=== PATIENT | female | born 1940 | race Caucasian/White ===

== ENCOUNTER → 2019-05-28 14:36 | Outpatient (CLI) | payer MEDICARE, SELFPAY ==
--- NOTE | 2019-05-28 | DI.US.S_ITS ---
PROCEDURE: US PERIPH VENOUS LOW EXTREM RT INDICATIONS: LOCALIZED SWELLING, MASS, AND LUMP RIGHT LOWER LIMB TECHNIQUE: Real-time imaging, as well as color and pulse Doppler interrogation, were performed of the lower extremity deep veins from the inguinal ligament to the popliteal fossa. COMPARISON: None. FINDINGS: Acute chronic venous thrombosis involving the right superficial femoral vein distally through the upper calf trifurcation. Common femoral, proximal and middle superficial femoral veins are patent. IMPRESSION: 1. Acute on chronic deep venous thrombosis involving the right distal superficial femoral vein through the trifurcation. Tristin De León PAC given results by the solutions engineer at 1543 hrs. on 05/28/19 and the patient was sent to the emergency department. Dictated by: Tristin Zuniga [facility] Interpreted: Enriuqe Flynn MD on 05/28/2019 at 16:03 Approved by: Enrique Flynn M.D. on 05/28/2019 at 16:46
== END ==
PROVIDERS: Family Provider Nurse Practitioner Gerontology; PCP Family Medicine; Visit Provider Physician Assistant
DX: I82.411 Acute embolism and thrombosis of right femoral vein (principal); R22.41 Localized swelling, mass and lump, right lower limb
CPT/HCPCS: 93971

== ENCOUNTER 2019-05-28 15:42 | Observation (INO) | payer MEDICARE, SELFPAY ==
[2019-05-28] VITALS (7 sets, daily range): BP systolic 149–170; BP diastolic 52–82; PULSE 87–94; RESP 14–20; TEMP 36.5–37; O2SAT 92–99; BMI 31.6
--- NOTE | 2019-05-28 15:59 | DI.CT.S_ITS ---
PROCEDURE: CT ANGIO CHEST PE PROTOCOL INDICATIONS: sob with known +DVT TECHNIQUE: After the administration of intravenous contrast, 2 mm thick sections acquired from the pulmonary apices to the posterior costophrenic angles. 3-dimensional maximum intensity projection (MIP) coronal and sagittal reformats were then acquired through the thorax. For radiation dose reduction, the following was used: automated exposure control, adjustment of mA and/or kV according to patient size. COMPARISON: None. FINDINGS: Image quality: Excellent. Pulmonary arteries: Pulmonary arteries are normal in size. Large saddle embolus sitting in distal main pulmonary artery extending to bilateral main pulmonary arteries and bilateral upper lobe pulmonary artery branches, consistent with bilateral pulmonary light. Lungs and pleura: Dependent atelectasis and hazy groundglass opacities are seen scattered in the posterior aspect of the lateral lung huber. No focal infiltrate. No pleural effusions or pneumothorax. Central and peripheral airways are patent. Mediastinum: Heart size is normal, without pericardial effusion. No mediastinal or hilar adenopathy. Thoracic aorta is normal in caliber and enhancement. Esophagus is normal in caliber, with a small hiatal hernia. Bones and chest wall: No suspicious bony lesions. Ribs and thoracic spine appear intact throughout. Thyroid gland is within normal limits. No axillary or supraclavicular adenopathy. Abdomen: Visualized upper abdominal solid organs appear normal in the early arterial phase of enhancement. IMPRESSION: 1. Subtle embolus involving distal main pulmonary trunk extending to bilateral main pulmonary arteries and bilateral upper lobe pulmonary artery branches. 2. No thoracic aortic aneurysm or dissection. 3. Dependent atelectasis in bilateral lung huber. Hazy ground glass opacities in bilateral lung huber dependent portion likely represent mild pulmonary edema. No pleural effusion or pneumothorax. 4. No gross mediastinal or hilar lymphadenopathy. Small hiatal hernia. Dictated by: Enrique Flynn M.D. on 05/28/2019 at 17:06 Approved by: Enrique Flynn M.D. on 05/28/2019 at 17:21
[2019-05-28 16:28] LABS: Add Manual Diff / Slide Review NO; Basophils Absolute Auto 0 /uL (0-100); Basophils Percent Auto 0.1 % (0-2); Eosinophils Absolute Auto 200 /uL (0-450); Eosinophils Percent Auto 2.5 % (2-4); Hematocrit 33.8 % (36-46); Hemoglobin 11.4 g/dL (12.0-16.0); Lymphocytes Absolute Auto 1800 /uL (1100-4500); Lymphocytes Percent Auto 21.5 % (25-40); Mean Corpuscular HGB Conc 33.6 % (30-36); Mean Corpuscular Hemoglobin 30.4 PG (26-34); Mean Corpuscular Volume 90.4 fL (80-100); Monocytes Absolute Auto 800 /uL (0-900); Monocytes Percent Auto 9.3 % (3-14); Neutrophils Absolute Auto 5700 /uL (1500-7000); Neutrophils Percent Auto 66.6 % (50-75); Platelet Count 178 X10^3/uL (150-400); Red Blood Cell Count 3.74 X10^6/uL (4.0-5.2); Red Cell Distribution Width 12.8 % (11.6-14.8); White Blood Cell Count 8.5 X10^3/uL (4.5-11.0)
[2019-05-28 16:38] LABS: Prothrombin Time 11.4 SECONDS (10.1-12.7)
[2019-05-28 16:40] LABS: PTT Partial Thromboplastin Tim 29 SECONDS (26.4-36.2)
[2019-05-28 16:43] LABS: Creatine Kinase 62 U/L (30-135); Magnesium 1.9 mg/dL (1.6-2.3)
[2019-05-28 16:44] LABS: Alanine Aminotransferase 12 IU/L (<35); Albumin 3.9 g/dL (3.5-5.0); Albumin Globulin Ratio 1.1 (1.0-2.8); Alkaline Phosphatase 84 U/L (38-126); Aspartate Aminotransferase 26 IU/L (14-36); BUN Creatinine Ratio 17.7 (6-22); Bilirubin Total 0.4 mg/dL (0.2-1.3); Blood Urea Nitrogen 23 mg/dL (7-17); Calcium 9.2 mg/dL (8.4-10.2); Carbon Dioxide 29 mmol/L (22-32); Chloride 102 mmol/L (98-107); Estimated Glomerular Filt Rate 39.6 mL/min (>60); Globulin 3.4 g/dL (1.7-4.1); Glucose 99 mg/dL (80-110); HEMOLYSIS < 15 (0-50); Potassium 4.2 mmol/L (3.4-5.1); Sodium 137 mmol/L (137-145); Total Protein 7.3 g/dL (6.3-8.2)
[2019-05-28 16:55] LABS: Troponin I 0.057 ng/mL (0.01-0.034)
--- NOTE | 2019-05-28 16:57 | ED_ITS ---
HPI - Extremity Problem General Chief complaint: Extremity Problem,Nontraumatic Stated complaint: possible blood clot Time Seen by Provider: 05/28/19 15:58 Source: patient Mode of arrival: Wheelchair Limitations: no limitations History of Present Illness HPI Narrative: Patient is a 78-year-old female who presents, is right leg swelling and increasing shortness of breath. She states that of her right leg has actually been swollen since about Thanksgiving. She attributed this to multiple changes in her blood pressure medication. She says initially she was on medication is to stop her legs from swelling in that it was switched by different provider and she was put back on it. She has had no recent travel [place] and over the past few weeks she has noticed just swelling in her right leg along increasing shortness of breath with exertion and some mild chest discomfort. She was evaluated today clinic for increasing pain behind the knee. She had positive ultrasound at this hospital which did show acute on chronic DVT is. She was sent to the ER for fur ther evaluation of her shortness of breath and known DVT. MD Complaint: extremity swelling Pain Consistency: constant Related Data Allergies Allergy/AdvReac Type Severity Reaction Status Date / Time No Known Drug Allergies Allergy Verified 05/28/19 15:51 Review of Systems Review of Systems Narrative: GENERAL: Denies chills, fatigue, malaise, fever, sweats, travel HEENT: Denies sinus pain, ear pain, sore throat, difficulty swallowing, neck pain RESPIRATORY: See HPI CARDIOVASCULAR: Denies chest pain, palpitations, orthopnea, edema GASTROINTESTINAL: Denies nausea, vomiting, abdominal pain, diarrhea, constipation, melena. : Denies dysuria, frequency, incontinence, hematuria, urinary retention, flank pain. MUSCULOSKELETAL: See HPI SKIN: No rash, no erythema, no pruritus NEUROLOGIC: Denies weakness, dizziness, headache, numbness, change in speech, confusion PSYCHIATRIC: No concerning psychosocial issues. 12 point review of systems is negative except for those stated above and HPI Patient History Medical History Hypertension (Acute) Social History Smoking Status: Former smoker Smoking Status: Former smoker alcohol intake frequency: holidays/special occasions only Substance Use Type: does not use Exam Initial Vital Signs Initial Vital Signs: Vital Signs Temperature 98.6 F 05/28/19 15:45 Pulse Rate 94 H 05/28/19 15:45 Respiratory Rate 15 05/28/19 15:45 Blood Pressure 159/70 H 05/28/19 15:45 Pulse Oximetry 94 05/28/19 15:45 GENERAL: Alert overweight female no acute distress HEENT: Head atraumatic,EOMI, pupils reactive, face symmetric CARDIOVASCULAR: Regular rate and rhythm without murmurs, rubs or gallops. RESPIRATORY: Breath sounds equal bilaterally, no wheezes rales or rhonchi. ABDOMEN: Soft, nontender. Normoactive bowel sounds all 4 quadrants. No guarding or rebound. EXTREMITIES: Normal range of motion, no clubbing or edema. Neurovascularly intact Significant swelling over right lower leg no gross bony abnormality no erythema NEUROLOGICAL: Alert and oriented x4.Normal gait and speech. Cranial nerves II through XII grossly intact. SKIN: Warm, dry, no laceration, no petechiae, no rashes or lesions. Course Orders Ordered: ED Orders 05/28/19 15:58 Consult to Respiratory Therapy Evaluate & Treat EKG-12 Lead Stat 05/28/19 15:59 CT angio chest PE protocol Stat 05/28/19 16:22 B Type Natriuretic Peptide Stat Complete Blood Count AUTO DIFF Stat Comprehensive Metabolic Panel Stat Magnesium Stat Partial Thromboplastin Time Stat Prothrombin Time INR Stat Troponin & CK Cardiac Panel Stat Discontinued Medications Enoxaparin Sodium (Lovenox) 90 mg 1 mg/kg (90 mg) SUBCUT NOW ONE Stop: 05/28/19 17:24 Last Admin: 05/28/19 17:28 Dose: 90 mg Documented by: OMID Vital Signs Vital signs: Vital Signs - 8 hr 05/28/19 15:45 05/28/19 16:00 05/28/19 17:35 Temperature 98.6 F Pulse Rate 94 H 89 91 H Respiratory Rate 15 18 20 Blood Pressure 159/70 H Blood Pressure [Right Arm] 149/61 H 156/82 H Pulse Oximetry 94 98 94 MDM - Extremity (Nontraumatic) Lab Data Attestation: I reviewed the patient's lab results. Result diagrams: 05/28/19 16:22 05/28/19 16:22 Labs: Lab Results 05/28/19 05/28/19 05/28/19 Range/Units 16:22 16:22 16:22 WBC 8.5 (4.5-11.0) X10^3/uL RBC 3.74 L (4.0-5.2) X10^6/uL Hgb 11.4 L (12.0-16.0) g/dL Hct 33.8 L (36-46) % MCV 90.4 (80-100) fL MCH 30.4 (26-34) PG MCHC 33.6 (30-36) % RDW 12.8 (11.6-14.8) % Plt Count 178 (150-400) X10^3/uL Neut % (Auto) 66.6 (50-75) % Lymph % (Auto) 21.5 L (25-40) % [place] % (Auto) 9.3 (3-14) % Eos % (Auto) 2.5 (2-4) % Baso % (Auto) 0.1 (0-2) % Neut # (Auto) 5700 (9408-5865) /uL Lymph # (Auto) 1800 (4670-1870) /uL [place] # (Auto) 800 (0-900) /uL Eos # (Auto) 200 (0-450) /uL Baso # (Auto) 0 (0-100) /uL PT 11.4 (10.1-12.7) SECONDS INR 1.0 (0.9-1.3) APTT 29 (26.4-36.2) SECONDS Sodium (137-145) mmol/L Potassium (3.4-5.1) mmol/L Chloride (98-107) mmol/L Carbon Dioxide (22-32) mmol/L BUN (7-17) mg/dL Creatinine (0.52-1.04) mg/dL Estimated GFR (>60) mL/min BUN/Creatinine Ratio (6-22) Glucose (80-110) mg/dL Calcium (8.4-10.2) mg/dL Magnesium 1.9 (1.6-2.3) mg/dL Total Bilirubin (0.2-1.3) mg/dL AST (14-36) IU/L ALT (<35) IU/L Alkaline Phosphatase (38-126) U/L Total Creatine Kinase 62 (30-135) U/L CK-MB (CK-2) TNP CK-MB (CK-2) Rel Index TNP Troponin I 0.057 H (0.01-0.034) ng/mL B-Natriuretic Peptide < 100 (<100) Total Protein (6.3-8.2) g/dL Albumin (3.5-5.0) g/dL Globulin (1.7-4.1) g/dL Albumin/Globulin Ratio (1.0-2.8) // Range/Units 16:22 WBC (4.5-11.0) X10^3/uL RBC (4.0-5.2) X10^6/uL Hgb (12.0-16.0) g/dL Hct (36-46) % MCV (80-100) fL MCH (26-34) PG MCHC (30-36) % RDW (11.6-14.8) % Plt Count (150-400) X10^3/uL Neut % (Auto) (50-75) % Lymph % (Auto) (25-40) % [place] % (Auto) (3-14) % Eos % (Auto) (2-4) % Baso % (Auto) (0-2) % Neut # (Auto) (5956-8970) /uL Lymph # (Auto) (9170-0495) /uL [place] # (Auto) (0-900) /uL Eos # (Auto) (0-450) /uL Baso # (Auto) (0-100) /uL PT (10.1-12.7) SECONDS INR (0.9-1.3) APTT (26.4-36.2) SECONDS Sodium 137 (137-145) mmol/L Potassium 4.2 (3.4-5.1) mmol/L Chloride 102 (98-107) mmol/L Carbon Dioxide 29 (22-32) mmol/L BUN 23 H (7-17) mg/dL Creatinine 1.30 H (0.52-1.04) mg/dL Estimated GFR 39.6 L (>60) mL/min BUN/Creatinine Ratio 17.7 (6-22) Glucose 99 (80-110) mg/dL Calcium 9.2 (8.4-10.2) mg/dL Magnesium (1.6-2.3) mg/dL Total Bilirubin 0.4 (0.2-1.3) mg/dL AST 26 (14-36) IU/L ALT 12 (<35) IU/L Alkaline Phosphatase 84 (38-126) U/L Total Creatine Kinase (30-135) U/L CK-MB (CK-2) CK-MB (CK-2) Rel Index Troponin I (0.01-0.034) ng/mL B-Natriuretic Peptide (<100) Total Protein 7.3 (6.3-8.2) g/dL Albumin 3.9 (3.5-5.0) g/dL Globulin 3.4 (1.7-4.1) g/dL Albumin/Globulin Ratio 1.1 (1.0-2.8) Imaging Data CT scan - chest: Radiologist's impression: PROCEDURE: CT ANGIO CHEST PE PROTOCOL INDICATIONS: sob with known +DVT TECHNIQUE: After the administration of intravenous contrast, 2 mm thick sections acquired from the pulmonary apices to the posterior costophrenic angles. 3-dimensional maximum intensity projection (MIP) coronal and sagittal reformats were then acquired through the thorax. For radiation dose reduction, the following was used: automated exposure control, adjustment of mA and/or kV according to patient size. COMPARISON: None. FINDINGS: Image quality: Excellent. Pulmonary arteries: Pulmonary arteries are normal in size. Large saddle embolus sitting in distal main pulmonary artery extending to bilateral main pulmonary arteries and bilateral upper lobe pulmonary artery branches, consistent with bilateral pulmonary light. Lungs and pleura: Dependent atelectasis and hazy groundglass opacities are seen scattered in the posterior aspect of the lateral lung huber. No focal infiltrate. No pleural effusions or pneumothorax. Central and peripheral airways are patent. Mediastinum: Heart size is normal, without pericardial effusion. No mediastinal or hilar adenopathy. Thoracic aorta is normal in caliber and enhancement. Esophagus is normal in caliber, with a small hiatal hernia. Bones and chest wall: No suspicious bony lesions. Ribs and thoracic spine appear intact throughout. Thyroid gland is within normal limits. No axillary or supraclavicular adenopathy. Abdomen: Visualized upper abdominal solid organs appear normal in the early arterial phase of enhancement. IMPRESSION: 1. Subtle embolus involving distal main pulmonary trunk extending to bilateral main pulmonary arteries and bilateral upper lobe pulmonary artery branches. 2. No thoracic aortic aneurysm or dissection. 3. Dependent atelectasis in bilateral lung huber. Hazy ground glass opacities in bilateral lung huber dependent portion likely represent mild pulmonary edema. No pleural effusion or pneumothorax. 4. No gross mediastinal or hilar lymphadenopathy. Small hiatal hernia. Dictated by: Enrique Flynn M.D. on 05/28/2019 at 17:06 ECG Data Attestation EKG: I personally reviewed and interpreted this ECG as follows: Prior ECG tracings: not available for review Interpretation: Normal sinus rhythm rate 88 p.r. interval 198 QRS 85 QTC 380 for Q-wave noted lead 3 no S-wave in lead 1 or T-wave inversion no ST elevation depression or T-wave inversions for ischemia MDM Narrative Medical decision making narrative: Patient is found to have bilateral PEs with an indeterminate troponin. Her vitals have been stable oxygen also stable. Difficult to say how long pulmonary embolism has been present, however based upon indeterminate troponin and worsening symptoms of will keep patient in observation and started on anticoagulation. Dr. Joseph updated patient's symptoms test results request Lovenox and except for observation Discharge Plan Departure Patient Disposition: Admitted as Observation Clinical Impression: Pulmonary embolism Qualifiers: Pulmonary embolism type: multiple subsegmental (without acute cor pulmonale) Qualified Code(s): I26.94 - Multiple subsegmental pulmonary emboli without acute cor pulmonale Discharge Date/Time: 05/28/19 18:54 Admit Date/Time: 05/28/19 17:41 Admit Provider: Román Joseph
[2019-05-28 17:02] LABS: B Type Natriuretic Peptide < 100 (<100)
[2019-05-28] MEDS: ENOXAPARIN 100 MG/ML SYRINGE 90 MG SUBCUT (17:28)
--- NOTE | 2019-05-28 19:41 | PC.NURSE ---
Pt arrived on unit at 190 with her daughter. Patient hypertensive at 167/66 and states she has had issues with metoprolol, lisinopril and lasix. She also stated that she stopped taking her 81 mg of ASA as her MD in [place] said it's efficacy in treating blood clots is now unclear. She states she has a family history of strokes. She states she feels pressure and moderate pain behind her right knee. Her right ankle is approx 2x larger than her left. Her knee is very warm to the touch. She does not want any pain medication. She is not hungry or thirsty.
--- NOTE | 2019-05-28 20:35 | DI.ECHO.S_ITS ---
[facility] +---------+ [facility] +---------+ : : [address] : : : : [id number] : : : : Phone: [phone]+ Echocardiogram Report + + :Name: CONCETTA JIMÉNEZ Study Date: 05/29/2019 Height: 67 in : :[facility] Weight: 202 lb : : Gender: Female BSA: 2.0 m2 : :: 1940 Age: 78 yrs BP: 177/79 mmHg: :Reason For Study: BILATERAL PE : : Performed By: [facility] Staff : :Referring: MADI WINSTON : + + Interpretation Summary The right ventricular systolic pressure is estimated to be at least 23 mmHg based on an estimated right atrial pressure of 3 mm Hg. Left ventricular wall motion is normal. The left ventricle is normal in size. The mitral valve leaflets appear mildly thickened, but open well. There is moderate aortic stenosis. There is mild to moderate aortic regurgitation. There is no prior echocardiogram noted for this patient. Procedure: A two-dimensional transthoracic echocardiogram with color flow and Doppler was performed. The study quality was technically adequate. There is no prior echocardiogram noted for this patient. The patient was in normal sinus rhythm during the exam. Left Ventricle: The left ventricle is normal in size. Left ventricular wall thickness is mildly increased. The ejection fraction is estimated to be 60- 65%. The left ventricular ejection fraction is normal. Left ventricular wall motion is normal. Diastolic parameters suggest a relaxation abnormality of the left ventricle, consistent with probable normal filling pressures. Right Ventricle: The right ventricle is normal in size and function. TAPSE 2.2 cm. Atria: The left atrium is moderately dilated. Right atrial size is normal. There is no Doppler evidence for an interatrial shunt. Mitral Valve: The mitral valve leaflets appear mildly thickened, but open well. There is trace mitral regurgitation. Aortic Valve: The aortic valve is trileaflet. The aortic valve is moderately calcified. There is moderate aortic stenosis. The calculated aortic valve area is 1.4 cm2. The peak aortic velocity is 2.6 m/sec. The aortic valve mean gradient is 16 mmHg. There is mild to moderate aortic regurgitation. Tricuspid Valve: The tricuspid valve is normal in structure and function. There is trace tricuspid regurgitation. The right ventricular systolic pressure is estimated to be at least 23 mmHg based on an estimated right atrial pressure of 3 mm Hg. Pulmonic Valve: The pulmonic valve is not well visualized. There is trace pulmonic regurgitation. Great Vessels: The aortic root is normal size. The ascending aorta could not be visualized. The pulmonary artery is normal size. The IVC is of normal diameter and collapses greater than 50% with a sniff. This suggests a low right atrial pressure of 3 mm Hg. Pericardium/ Pleura There is no pericardial effusion. There is no pleural effusion. MMode/2D Measurements & Calculations LVIDd: 3.8 cm LVOT diam: 1.9 cm LVIDs: 2.5 cm Ao root diam: 3.1 cm FS: 34.2 % EPSS: 0.51 cm IVSd: 1.1 cm LVPWd: 0.99 cm LV medina. diameter/BSA (cm/m^2): 1.9 LV sys. diameter/BSA (cm/m^2): 1.2 LA A2 area: 22.8 cm2 RA long axis: 5.4 cm LA A4 area: 23.6 cm2 RA area: 13.6 cm2 LA length (vol): 5.6 cm RA vol: 29.2 ml LA vol: 81.3 ml RA : 14.4 ml/m2 LA vol index: 40.1 ml/m2 TAPSE: 2.2 cm Doppler Measurements & Calculations Ao V2 max: 262.7 cm/sec LVOT Max Valente: 125.5 cm/sec Ao V2 mean: 184.6 cm/sec LV V1 max P.3 mmHg Ao max P.6 mmHg LV V1 VTI: 28.7 cm Ao mean P.5 mmHg MINH(I,D): 1.4 cm2 Ao V2 VTI: 56.7 cm MINH(V,D): 1.3 cm2 sev ratio: 0.51 MINH indexed to BSA (cm^2/m^2): 0.69 AI P1/2t: 315.2 msec AI dec slope: 454.1 cm/sec2 MV E max valente: 79.9 cm/sec TR max valente: 222.9 cm/sec MV A max valente: 113.4 cm/sec TR max P.9 mmHg MV E/A: 0.70 PA V2 max: 106.7 cm/sec Med Peak E' Valente: 6.1 cm/sec PA V2 mean: 75.4 cm/sec E/E' med: 13.1 PA mean P.6 mmHg Lat Peak E' Valente: 7.1 cm/sec PA Accel Time: 0.11 sec E/E' lat: 11.2 E/e' average: 12.2 MV dec time: 0.22 sec SV(OT): 79.7 ml Electronically signed by: Fabián Royal M.D. on Reading Physician:05/29/2019 03:51 PM
--- NOTE | 2019-05-28 20:39 | P.HP_ITS ---
History of Present Illness History of Present Illness Date Patient Seen: 05/28/19 Time Patient Seen: 19:50 Chief complaint: possible blood clot Narrative: Ms. Yuki Wright is a 78-year-old female with history significant for hypertension and hyperlipidemia who presents to the ER sent in prior primary care provider for a known DVT. The patient presents complaining of right leg swelling since Thanksgiving for which she had been taking Lasix and developed pain posterior to the knee prompting her to be evaluated today. Her provider did order an ultrasound which demonstrated a DVT and sent her to the ER. Patient has a history of shortness of breath for 1-2 years that she states has been progressive became marked recently. She reports shortness of breath with exertion and cannot ascend a flight of stairs without having to stop to rest. Patient distantly notes that she had been taking 2 baby aspirin daily up until 4-6 months ago and was concerned this provoked her DVT. She reports no recent travel, injury or in mobility stating that she is normally active. She has had no other complaints of illness and has had no fevers or chills, heada ches or dizziness. She has had no nasal congestion or sore throat. She has no chest pain and denies palpitations but is shortness of breath as above and notes a dry nonproductive cough. She denies abdominal pain, nausea vomiting and has no constipation or diarrhea. She denies urinary symptoms. She is ambulatory without assistive devices. Upon arrival to the ER the patient is afebrile with a temperature 97.7?, heart rate 91, blood pressure 156/82 with respirations of 20 saturating 94% on room air. The venous duplex identifies an acute on chronic DVT in the right distal superficial femoral vein through the trifurcation. A CTA is obtained finding: subtle embolus involving distal main pulmonary trunk extending to bilateral main pulmonary arteries and bilateral upper lobe pulmonary artery branches, hazy ground glass opacities in bilateral lung huber dependent portion likely represent mild pulmonary edema, small hiatal hernia. Laboratory analysis finds a white count of 8.5, hemoglobin of 11.4 hematocrit 33.8 platelets 178. Blood coag she has a PT of 11.4, INR 1.0 and PTT of 29. Her electrolytes are within normal limits and has a BUN of 23 with a creatinine of 1.3. Her nonfasting glucose is 99. Her liver functions within normal limits and has a magnesium of 1.9. Her troponin is 0.057 with a BNP of less than 100. In the ER the patient started on Lovenox 1 milligram/kilogram receiving 90 mg of Lovenox subcutaneously. The patient is admitted to the medicine service for DVT with bilateral pulmonary emboli. Patient History Medical History Frozen shoulder (Acute) Hyperlipidemia (Acute) Hypertension (Acute) Surgical History No history of previous surgery (Acute) Family & Social History Family History (Updated 05/29/19 @ 02:24 by ANTONELLA Holcomb) Father Stroke Mother Medical history unknown Brother Sudden Safety & Behavioral: Feels Safe in Current Yes Environment Been Physically Hurt or No Threatened By a Person Tobacco & Substance use: Smoking Status Former smoker alcohol intake frequency holiday/special occasion Substance Use Type does not use Comment: The patient lives alone in a single family home and has been for 2 years. She has 2 sons who live nearby. She reports her father from stroke and her mother when she was only 2 months old and does not know her medical history. She has 2 brothers and 1 sister, 1 brother from sudden . Smoking: Patient smoked 1/2 to 1 pack per day quitting in 1999. Alcohol: Patient denies consuming alcoholic beverages. Substance use: The patient denies recreational pharmaceuticals herbal or cannabis products. Advanced directives: Patient has formal advanced directives and states desire to be FULL CODE. She designates her Cameron Wright to be her surrogate decision maker. Meds Home Medications and Allergies Home Medications Medication Instructions Recorded Confirmed Type amlodipine 2.5 mg PO DAILY 05/29/19 05/29/19 History furosemide 20 mg PO DAILY 05/29/19 05/29/19 History metoprolol succinate 25 mg PO DAILY 05/29/19 05/29/19 History simvastatin 10 mg PO DAILY 05/29/19 05/29/19 History Allergies Allergy/AdvReac Type Severity Reaction Status Date / Time No Known Drug Allergies Allergy Verified 05/28/19 15:51 Review of Systems Review of Systems Narrative: All systems are refused and unremarkable except as noted in HPI above. Exam Vital Signs (past 8 hours): - 05/28/19 15:45 05/28/19 16:00 05/28/19 17:35 Temperature 98.6 F Pulse Rate 94 H 89 91 H Respiratory Rate 15 18 20 Blood Pressure 159/70 H Blood Pressure [Right Arm] 149/61 H 156/82 H Pulse Oximetry 94 98 94 05/28/19 18:17 05/28/19 18:50 05/28/19 19:00 Temperature 97.7 F Pulse Rate 87 89 90 Respiratory Rate 14 18 16 Blood Pressure 154/60 H 167/66 H Blood Pressure [Right Arm] 170/52 H Pulse Oximetry 94 99 93 Oxygen Delivery Method Room Air Narrative Exam Narrative: GENERAL APPEARANCE: well developed, obese female, in no acute distress. HEENT: Normocephalic, PERRLA, conjunctiva clear, EOMs intact without nystagmus, no sinus tenderness to percussion, no rhinorrhea, mucous membranes are moist and pink without lesions or exudate. NECK/THYROID: neck supple, no JVD, no carotid bruit, no thyromegaly, trachea midline. LYMPH NODES: no cervical or supraclavicular lymphadenopathy. SKIN: [place], warm and dry, no suspicious lesions, no rashes, ulcerations or petechiae. HEART: regular rate and rhythm, S1-S2, 2/6 systolic murmur, no rubs or gallops, brisk capillary refill, right lower extremity pitting edema to the knee. LUNGS: clear to auscultation bilaterally, no coarseness crackles or wheezing, dry nonproductive cough present CHEST: Symmetrical movement, no accessory muscle use, no kyphoscoliosis ABDOMEN: Soft, no distention, no abdominal tenderness, no organomegaly, no flank tenderness, active bowel tones. BACK: Normal curvature, nontender to palpation, no CVA tenderness on percussion EXTREMITIES: Right popliteal pain on palpation, right calf pain, positive Homans sign, moves all extremities, strength is 5/5 and symmetrical NEUROLOGIC: AAO x4, no focal neurologic deficits, sensation intact to light touch in all extremities, hearing grossly normal to speech. PSYCH: Good judgment, good insight, linear thought process, cooperative, appropriate with stable behavior Objective Labs Result Diagrams: 05/28/19 16:22 05/28/19 16:22 Labs: Laboratory Results - last 24 hr 05/28/19 05/28/19 05/28/19 16:22 16:22 16:22 WBC 8.5 RBC 3.74 L Hgb 11.4 L Hct 33.8 L MCV 90.4 MCH 30.4 MCHC 33.6 RDW 12.8 Plt Count 178 Neut % (Auto) 66.6 Lymph % (Auto) 21.5 L [place] % (Auto) 9.3 Eos % (Auto) 2.5 Baso % (Auto) 0.1 Neut # (Auto) 5700 Lymph # (Auto) 1800 [place] # (Auto) 800 Eos # (Auto) 200 Baso # (Auto) 0 PT 11.4 INR 1.0 APTT 29 Sodium Potassium Chloride Carbon Dioxide BUN Creatinine Estimated GFR BUN/Creatinine Ratio Glucose Calcium Magnesium 1.9 Total Bilirubin AST ALT Alkaline Phosphatase Total Creatine Kinase 62 CK-MB (CK-2) TNP CK-MB (CK-2) Rel Index TNP Troponin I 0.057 H B-Natriuretic Peptide < 100 Total Protein Albumin Globulin Albumin/Globulin Ratio 05/28/19 16:22 WBC RBC Hgb Hct MCV MCH MCHC RDW Plt Count Neut % (Auto) Lymph % (Auto) [place] % (Auto) Eos % (Auto) Baso % (Auto) Neut # (Auto) Lymph # (Auto) [place] # (Auto) Eos # (Auto) Baso # (Auto) PT INR APTT Sodium 137 Potassium 4.2 Chloride 102 Carbon Dioxide 29 BUN 23 H Creatinine 1.30 H Estimated GFR 39.6 L BUN/Creatinine Ratio 17.7 Glucose 99 Calcium 9.2 Magnesium Total Bilirubin 0.4 AST 26 ALT 12 Alkaline Phosphatase 84 Total Creatine Kinase CK-MB (CK-2) CK-MB (CK-2) Rel Index Troponin I B-Natriuretic Peptide Total Protein 7.3 Albumin 3.9 Globulin 3.4 Albumin/Globulin Ratio 1.1 Assessment & Plan Assessment & Plan narrative: This 70-year-old female patient who is directed to the emergency department by her primary care following a ultrasound demonstrating a DVT with shortness of breath. Patient felt leg pain swelling treated with Lasix progressing to popliteal pain prompting evaluation and ultrasound identification a DVT in the superficial femoral vein. Patient's shortness breath is longstanding for 1-2 years but has progressive recently and reports exertional dyspnea. She has had an associated dry nonproductive cough but denies chest pain or palpitations. 1. Pulmonary embolism, multi segmental, bilateral without cor pulmonale, present on admission, active. -subtle embolus involving distal main pulmonary trunk extending to bilateral main pulmonary arteries and bilateral upper lobe pulmonary artery branches. -no evidence of heart strain noted on CT, 12 lead EKG finds sinus rhythm with v entricular rate of [address] or T-wave changes. -no complaints of chest pain or palpitations, adequate oxygenation on room air. -patient started on Lovenox 1 milligram/kilogram, 90 mg subcutaneously twice daily. Will evaluate for apixaban in the morning. -troponin is elevated at 0.057 will recheck troponin. -Echocardiogram in the morning 2. Shortness breath, chronic, present on admission, active. -CT evaluation identifies patchy infiltrates consistent with mild pulmonary edema. -will continue the patient's home regimen of Lasix 20 mg daily -will monitor electrolytes 3. Essential hypertension, chronic, present on admission, active -blood pressure on admission was 156/82, the patient remains hypertensive 167 over 67 upon arrival to the floor. -will continue home regimen of amlodipine 2.5 mg daily and metoprolol 25 mg daily. -will trend blood pressures and evaluate need for escalation of antihypertensive therapy. 4. Hyperlipidemia, chronic, presumed stable. -will continue home regimen of simvastatin 10 mg daily. DVT prophylaxis: SCDs and therapeutic Lovenox. Diet: Heart healthy. The patient is admitted to the hospital due to the severity of her symptoms and the risk for complications and adverse events. The patient is admitted as observation status with expected length stay to be less than 2 midnights. Scores GCS [place] coma scale eye opening: Spontaneous [place] coma scale verbal response: Orientated Randa coma scale motor response: Obey commands Randa coma scale total score: 15
[2019-05-28 22:25] LABS: Troponin I 0.055 ng/mL (0.01-0.034)
[2019-05-28] MEDS: SODIUM CHLORIDE 0.9% 1,000 ML 75 ML IV (22:26)
[2019-05-29] VITALS (10 sets, daily range): BP systolic 139–172; BP diastolic 67–98; PULSE 86–95; RESP 16–18; TEMP 36.5–37.8; O2SAT 92–97
[2019-05-29] MEDS: PANTOPRAZOLE 20 MG TABLET PO (05:44)
[2019-05-29] MEDS: ENOXAPARIN 100 MG/ML SYRINGE 90 MG SUBCUT ×2 (05:44→16:22)
[2019-05-29 06:17] LABS: Basophils Absolute Auto 100 /uL (0-100); Eosinophils Absolute Auto 300 /uL (0-450); Eosinophils Percent Auto 3.9 % (2-4); Lymphocytes Absolute Auto 1700 /uL (1100-4500); Mean Corpuscular HGB Conc 34.6 % (30-36); Monocytes Absolute Auto 700 /uL (0-900); Neutrophils Absolute Auto 4500 /uL (1500-7000); White Blood Cell Count 7.3 X10^3/uL (4.5-11.0)
[2019-05-29 06:22] LABS: Add Manual Diff / Slide Review NO; Basophils Percent Auto 1.2 % (0-2); Hematocrit 31.8 % (36-46); Mean Corpuscular Hemoglobin 30.8 PG (26-34); Mean Corpuscular Volume 89.1 fL (80-100); Monocytes Percent Auto 10.1 % (3-14); Neutrophils Percent Auto 61.8 % (50-75); Platelet Count 163 X10^3/uL (150-400); Red Blood Cell Count 3.57 X10^6/uL (4.0-5.2); Red Cell Distribution Width 12.8 % (11.6-14.8)
[2019-05-29 06:29] LABS: Blood Urea Nitrogen 18 mg/dL (7-17); Calcium 8.6 mg/dL (8.4-10.2); Carbon Dioxide 26 mmol/L (22-32); Chloride 105 mmol/L (98-107); Estimated Glomerular Filt Rate 53.6 mL/min (>60); Glucose 93 mg/dL (80-110); HEMOLYSIS < 15 (0-50); Magnesium 1.8 mg/dL (1.6-2.3); Sodium 138 mmol/L (137-145)
[2019-05-29 06:40] LABS: Troponin I 0.041 ng/mL (0.01-0.034)
[2019-05-29] MEDS: FUROSEMIDE 20 MG TABLET PO (08:39)
[2019-05-29] MEDS: SODIUM CHLORIDE 0.9% FLUSH 10 ML IV ×2 (08:39→20:26)
[2019-05-29] MEDS: ACETAMINOPHEN 325 MG TABLET 650 MG PO (08:45)
[2019-05-29] MEDS: AMLODIPINE 2.5 MG TABLET PO (08:45)
--- NOTE | 2019-05-29 11:23 | PM.PN.1 ---
Subjective Subjective Date Patient Seen: 05/29/19 Interval history: The patient is a 78-year-old female admitted to the hospital with a saddle pulmonary embolus she also has a right lower extremity DVT. The patient denies any shortness of breath or chest pain today. She has minimal swelling in her right lower extremity. Patient also has hypertension and hyperlipidemia. Her blood pressure is suboptimally controlled. The patient had uneventful night. She has no further complaints. Exam Vital Signs (past 8 hours): - 05/29/19 05:08 05/29/19 07:45 05/29/19 08:45 Temperature 99.6 F 100.1 F H 100.1 F H Pulse Rate 92 H 88 Respiratory Rate 16 16 Blood Pressure 158/67 H 147/79 H Pulse Oximetry 92 94 Oxygen Delivery Method Room Air Oxygen Flow Rate 0 Narrative Exam Narrative: Pleasant female in no obvious distress resting comfortably and not short of breath Lungs: Clear to auscultation Cardiac exam: Regular rate rhythm normal S1-S2 with a 2/6 systolic ejection murmur Abdomen: Soft nontender nondistended Extremities: Right lower extremity with 1+ edema Objective Labs Result Diagrams: 05/29/19 06:00 05/29/19 06:00 Labs: Laboratory Results - last 24 hr 05/28/19 05/28/19 05/28/19 16:22 16:22 16:22 WBC 8.5 RBC 3.74 L Hgb 11.4 L Hct 33.8 L MCV 90.4 MCH 30.4 MCHC 33.6 RDW 12.8 Plt Count 178 Neut % (Auto) 66.6 Lymph % (Auto) 21.5 L [place] % (Auto) 9.3 Eos % (Auto) 2.5 Baso % (Auto) 0.1 Neut # (Auto) 5700 Lymph # (Auto) 1800 [place] # (Auto) 800 Eos # (Auto) 200 Baso # (Auto) 0 PT 11.4 INR 1.0 APTT 29 Sodium Potassium Chloride Carbon Dioxide BUN Creatinine Estimated GFR BUN/Creatinine Ratio Glucose Calcium Magnesium 1.9 Total Bilirubin AST ALT Alkaline Phosphatase Total Creatine Kinase 62 CK-MB (CK-2) TNP CK-MB (CK-2) Rel Index TNP Troponin I 0.057 H B-Natriuretic Peptide < 100 Total Protein Albumin Globulin Albumin/Globulin Ratio 05/28/19 05/28/19 05/29/19 16:22 21:55 06:00 WBC 7.3 RBC 3.57 L Hgb 11.0 L Hct 31.8 L MCV 89.1 MCH 30.8 MCHC 34.6 RDW 12.8 Plt Count 163 Neut % (Auto) 61.8 Lymph % (Auto) 23.0 L [place] % (Auto) 10.1 Eos % (Auto) 3.9 Baso % (Auto) 1.2 Neut # (Auto) 4500 Lymph # (Auto) 1700 [place] # (Auto) 700 Eos # (Auto) 300 Baso # (Auto) 100 PT INR APTT Sodium 137 Potassium 4.2 Chloride 102 Carbon Dioxide 29 BUN 23 H Creatinine 1.30 H Estimated GFR 39.6 L BUN/Creatinine Ratio 17.7 Glucose 99 Calcium 9.2 Magnesium Total Bilirubin 0.4 AST 26 ALT 12 Alkaline Phosphatase 84 Total Creatine Kinase CK-MB (CK-2) CK-MB (CK-2) Rel Index Troponin I 0.055 H B-Natriuretic Peptide Total Protein 7.3 Albumin 3.9 Globulin 3.4 Albumin/Globulin Ratio 1.1 05/29/19 05/29/19 06:00 06:00 WBC RBC Hgb Hct MCV MCH MCHC RDW Plt Count Neut % (Auto) Lymph % (Auto) [place] % (Auto) Eos % (Auto) Baso % (Auto) Neut # (Auto) Lymph # (Auto) [place] # (Auto) Eos # (Auto) Baso # (Auto) PT INR APTT Sodium 138 Potassium 4.0 Chloride 105 Carbon Dioxide 26 BUN 18 H Creatinine 1.00 Estimated GFR 53.6 L BUN/Creatinine Ratio 18.0 Glucose 93 Calcium 8.6 Magnesium 1.8 Total Bilirubin AST ALT Alkaline Phosphatase Total Creatine Kinase CK-MB (CK-2) CK-MB (CK-2) Rel Index Troponin I 0.041 H B-Natriuretic Peptide Total Protein Albumin Globulin Albumin/Globulin Ratio Assessment & Plan Assessment & Plan narrative: Impression 1. 78-year-old female admitted to the hospital with a saddle embolus, right lower extremity DVT. The patient is hemodynamically stable. Echocardiogram is pending. There is no suggestion at this time a right ventricular heart strain. Patient is not hypoxic. She will continue on Lovenox b.i.d.. Anticipate initiation of Xarelto at discharge. Will observe the patient overnight given the significant pulmonary embolus. If she has no difficulties overnight anticipate discharge home tomorrow. Discussed the case with Interventional Radiology at [facility]. No indication for IVC filter at this time. However if the patient develops any hemodynamic compromise, shortness of breath, or evidence to suggest progression of the pulmonary embolus would consider IVC retractable filter. 2. Hypertension, suboptimally controlled. Will increase her metoprolol to 50 daily. Will continue amlodipine at 2.5 per day. Would hold Lasix at this time given the pulmonary embolus. 3. Hyperlipidemia, continue simvastatin, Plans for discharge home. Anticipate discharge home tomorrow.
--- NOTE | 2019-05-29 15:04 | CM.DANOTE ---
Addendum entered by Sherrie Russell LPN 05/29/19 15:17: Met with pt, introduced self and role. Pt says her PCP is Dr. Sawant but I have chosen another PCP and will have my first appt iwht Lora Moctezumaeugene June 28. Pt also confirms that she is . Her daughter Candy Ortiz/Lisa: [phone] lives right by the hospital. Pt says she is glad that Dr. Sorto is keeping her overnight. Plans to d/c to home setting but only when she is deemed safe to do so. Will follow prn. Original Note: Discharge Planning/Care Management DCP: assessment: case received, EMR reviewed. Discussed in Team Rounds and then later in followup with Dr. Sorto. Pt is a 78 year old female who admitted last evening to care of hospitalist team. Payer: Medicare and [employer]. Admission status: OBS: confirmed by AGUEDA Wolf PCP: listed as Nury Sawant: will confirm. Dr. Sorto initially planned to send pt home today after ECHO was completed for outpt treatment of her DVT and PE. She later noted that Saddle PE was identified, that this was a life threatening dx and she would keep pt here until tomorrow and then reassess the situation. CM Discharge Assessment Start: 05/29/19 15:03 Freq: Status: Active Protocol: Document 05/29/19 15:03 ITV (Rec: 05/29/19 15:04 ITV [id number]) Discharge Planning Assessment Advance Directives? No History Provided By Patient,Medical Record Prior Living Arrangements House Household Members none Independent with ADL's Yes Is patient alert and oriented? Yes Whiteboard Updated in Patient Room with Yes name and ext. 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
[2019-05-29] MEDS: ACETAMINOPHEN 325 MG TABLET 975 MG PO (20:26)
[2019-05-30 00:15] VITALS: BP 146/59; PULSE 89; RESP 16; TEMP 36.7; O2SAT 92
[2019-05-30 05:16] VITALS: BP 152/63; PULSE 94; RESP 16; TEMP 36.8; O2SAT 94
[2019-05-30] MEDS: PANTOPRAZOLE 20 MG TABLET PO (05:18)
[2019-05-30] MEDS: ENOXAPARIN 100 MG/ML SYRINGE 90 MG SUBCUT (05:19)
[2019-05-30 08:00] VITALS: BP 169/72; PULSE 89; RESP 18; TEMP 37.3; O2SAT 96
[2019-05-30] MEDS: AMLODIPINE 2.5 MG TABLET PO (08:11)
[2019-05-30] MEDS: SODIUM CHLORIDE 0.9% FLUSH 10 ML IV (08:11)
[2019-05-30] MEDS: METOPROLOL ER 50 MG TABLET PO (08:11)
[2019-05-30] MEDS: ACETAMINOPHEN 325 MG TABLET 975 MG PO (08:15)
--- NOTE | 2019-05-30 13:02 | CM.DPC ---
DCP: case discussed in Team Rounds with Dr. Sorto. She noted again the concerns related to the saddle block PE. Decision in Rounds was to have PT Dinora see pt and assess her ability to mobilize without shortness of breath. Dr. Sorto stated she would put in the orders. UR LISA Wolf and Dr. Sorto also discussed admission status. At time of Rounds the plan was for pt to likely stay on again overnight due to the gravity of the saddle block diagnosis. A check in now shows a d/c to home setting. Unclear what all transpired as no d/c summary is yet in place. Room is already cleaned. Checked in with PT Dinora who notes that an order was never placed so she had not worked with pt. DC orders note followup with PCP in about a week.
--- NOTE | 2019-05-30 17:13 | P.DS_ITS ---
History of Present Illness History of Present Illness Date Patient Seen: 05/30/19 Chief complaint: possible blood clot Narrative: Ms. Yuki Wright is a 78-year-old female with history significant for hypertension and hyperlipidemia who presents to the ER sent in prior primary care provider for a known DVT. The patient presents complaining of right leg swelling since Thanksgiving for which she had been taking Lasix and developed pain posterior to the knee prompting her to be evaluated today. Her provider did order an ultrasound which demonstrated a DVT and sent her to the ER. Patient has a history of shortness of breath for 1-2 years that she states has been progressive became marked recently. She reports shortness of breath with exertion and cannot ascend a flight of stairs without having to stop to rest. Patient distantly notes that she had been taking 2 baby aspirin daily up until 4-6 months ago and was concerned this provoked her DVT. She reports no recent travel, injury or in mobility stating that she is normally active. She has had no other complaints of illness and has had no fevers or chills, headaches or dizziness. She has had no nasal congestion or sore throat. She has no chest pain and denies palpitations but is shortness of breath as above and notes a dry nonproductive cough. She denies abdominal pain, nausea vomiting and has no constipation or diarrhea. She denies urinary symptoms. She is ambulatory without assistive devices. Upon arrival to the ER the patient is afebrile with a temperature 97.7?, heart rate 91, blood pressure 156/82 with respirations of 20 saturating 94% on room air. The venous duplex identifies an acute on chronic DVT in the right distal superficial femoral vein through the trifurcation. A CTA is obtained finding: subtle embolus involving distal main pulmonary trunk extending to bilateral main pulmonary arteries and bilateral upper lobe pulmonary artery branches, hazy ground glass opacities in bilateral lung huber dependent portion likely represent mild pulmonary edema, small hiatal hernia. Laboratory analysis finds a white count of 8.5, hemoglobin of 11.4 hematocrit 33.8 platelets 178. Blood coag she has a PT of 11.4, INR 1.0 and PTT of 29. Her electrolytes are within normal limits and has a BUN of 23 with a creatinine of 1.3. Her nonfasting glucose is 99. Her liver functions within normal limits and has a magnesium of 1.9. Her troponin is 0.057 with a BNP of less than 100. In the ER the patient started on Lovenox 1 milligram/kilogram receiving 90 mg of Lovenox subcutaneously. The patient is admitted to the medicine service for DVT with bilateral pulmonary emboli. Discharge Providers Provider Date of admission: 05/28/19 17:41 Discharge Date: 05/30/19 Primary care physician: Andres Sawant MD Consults: 05/28/19 20:28 Consult to Discharge Planning Routine Comment: 05/28/19 20:33 Consult to Discharge Planning Routine Comment: 05/28/19 20:35 Consult to Respiratory Therapy Evaluate & Treat Comment: PE Physician Instructions: Evaluate and treat Discharge provider: Krista Sorto MD Summary Hospital Course Discharge Diagnosis: 1. Pulmonary embolus, described as saddle emboli on CT angio 2. Right lower extremity DVT involving the superficial femoral vein 3. Hypertension with suboptimal control 4. Hyperlipidemia Hospital Course: Patient was admitted to the hospital for treatment and evaluation of pulmonary embolus/DVT. She was placed on Lovenox b.i.d. for treatment. She had no shortness of breath, she had no chest pain, the patient had swelling of the right lower extrem ity which improved with leg elevation. She underwent a cardiac echo to evaluate her right ventricular function and there was no evidence of right ventricular strain. The cardiac echo revealed the following findings: The right ventricular systolic pressure is estimated to be at least 23 mmHg based on an estimated right atrial pressure of 3 mm Hg. Left ventricular wall motion is normal. The left ventricle is normal in size. The mitral valve leaflets appear mildly thickened, but open well. There is moderate aortic stenosis. There is mild to moderate aortic regurgitation. At no time did the patient have any evidence of hemodynamic instability. Her oxygenation improved. She was hypertensive throughout the course of her hospital stay and her medications were adjusted. Her amlodipine was increased to 10 mg a day, her metoprolol was increased to 50 mg daily. Patient was started on Xarelto 15 mg twice daily for 21 days followed by Xarelto 20 mg daily thereafter. She was asked to follow-up with her primary care physician next we ek for further evaluation. Patient was deemed appropriate for discharge and discharged home accordingly. Status at Discharge Cognitive/behavioral status at discharge: oriented Functional status at discharge: independent ambulation Overall status at discharge: patient is back to baseline Time Spent with Patient Time spent: Less than 30 minutes Time spent discussing smoking cessation with patient: 3 to 10 minutes Exam Vital Signs (past 8 hours): Oxygen Delivery Method Room Air Oxygen Flow Rate 0 Narrative Exam Narrative: Pleasant female in no obvious distress Lungs: Clear to auscultation Cardiac exam: Regular rate and rhythm normal S1-S2 Abdomen: Soft nontender nondistended Extremities: 1+ edema on the right lower extremity Objective Labs Result Diagrams: 05/29/19 06:00 05/29/19 06:00 Discharge Plan Discharge Plan Patient Disposition: Home Discharge comment: Needs to take Xeralto 15 mg twice daily for 21 days, then 20 mg daily. F/u with PCP. Olman next week Discharge orders & Medications Prescriptions: New metoprolol succinate 50 mg Tablet Extended Release 24 Hr 50 mg PO DAILY Qty: 30 RF: 0 amlodipine 10 mg tablet 10 mg PO DAILY Qty: 30 RF: 0 Xarelto 20 mg tablet 15 mg PO BID 30 Days Qty: 30 RF: 0 Continued simvastatin 10 mg tablet 10 mg PO DAILY RF: 0 Discontinued amlodipine 2.5 mg tablet 2.5 mg PO DAILY RF: 0 furosemide 20 mg tablet 20 mg PO DAILY RF: 0 metoprolol succinate 25 mg tablet extended release 24 hr 25 mg PO DAILY RF: 0 Follow up/Referrals: Andres Sawant MD [Primary Care Provider] - Visit Report/Discharge Packet Instructions: DI for Deep Vein Thrombosis, DI for Pulmonary Embolism Visit Report Forms: Patient Portal/API, Stroke Signs & Symptoms Discharge Data Primary Care Provider: Andres Sawant Attending Provider: Román Joseph Admit Date/Time: 05/28/19 17:41 Discharges patient from system. Discharge Date/Time: 05/30/19 12:28
== END 2019-05-30 12:28 | disposition home or self-care (01) ==
LOC: ED 15:58 → AC 17:41
PROVIDERS: Nurse Practitioner Adult Health; Admitting Provider Internal Medicine; Emergency Provider Emergency Medicine; Family Provider Nurse Practitioner Gerontology; PCP Family Medicine; Visit Provider Internal Medicine
DX: I82.411 Acute embolism and thrombosis of right femoral vein (principal); R22.41 Localized swelling, mass and lump, right lower limb; I26.92 Saddle embolus of pulmonary artery without acute cor pulmonale; R06.02 Shortness of breath; I10 Essential (primary) hypertension; E78.5 Hyperlipidemia, unspecified
CPT/HCPCS: 36415; 71275; 80048; 80053; 82550; 83735; 83880; 84484; 85025; 85610; 85730; 93005; 93010; 93306; 93971; 94762; 96360; 96361; 96372; 99284; 99285; G0378; J1650

== ENCOUNTER 2019-10-06 14:03 | Emergency (ER) | payer MEDICARE, SELFPAY ==
[2019-05-28 20:42] VITALS: BMI 31.6
[2019-10-06] VITALS (7 sets, daily range): BP systolic 170–213; BP diastolic 72–88; PULSE 79–97; RESP 18–20; TEMP 37.2; O2SAT 94–96
--- NOTE | 2019-10-06 14:40 | ED.GENADULT ---
HPI - General Adult General Chief complaint: Hypertension Stated complaint: Blood Pressure High Time Seen by Provider: 10/06/19 14:09 Source: patient and family Mode of arrival: Ambulatory Limitations: no limitations History of Present Illness HPI narrative: Patient here for elevated blood pressure with dizziness. Patient denies denies any chest pain back pain abdominal pain. Does complain of mild diffuse headache at its worst 2/10 intermittently. Currently no headache. No slurred speech facial droop or any complaints of numbness tingling or weakness. No altered mental status. Patient states 2 nights ago felt lightheaded. No syncope. Or near syncope. No nausea vomiting diarrhea. No recent illness. No cough cold congestion. Patient is on Xarelto for history of pulmonary embolism May 2019. Has seen Cardiology as well as Hematology. Started to blood pressure medications back in May and has not had any changes to dosing. Has appointment with her family physician tomorrow. She takes her blood pressure medications at night. She has been doing a home adrenal of her blood pressure. It has been elevated. Ranging between 150-215 systolic Related Data Home Medications Medication Instructions Recorded Confirmed simvastatin 10 mg PO DAILY 05/29/19 05/29/19 losartan 10/06/19 Previous Rx's Medication Instructions Recorded amlodipine 10 mg PO DAILY #30 tab 05/30/19 metoprolol succinate 50 mg PO DAILY #30 tab 05/30/19 Allergies Allergy/AdvReac Type Severity Reaction Status Date / Time amlodipine Allergy Verified 10/06/19 14:24 Review of Systems Review of Systems Narrative: GENERAL: Denies chills, fatigue, malaise, fever, sweats. HEENT: Denies sinus pain, ear pain, sore throat, difficulty swallowing, dizziness. RESPIRATORY: Denies dyspnea, cough, wheezing, hemoptysis, sputum. CARDIOVASCULAR: Denies chest pain, palpitations, orthopnea, edema, GASTROINTESTINAL: Denies nausea, vomiting, abdominal pain, diarrhea, constipation, melena. : Denies dysuria, frequency, incontinence, hematuria, urinary retention. MUSCULOSKELETAL: denies weakness, joint pain, or bony pain SKIN: Denies rash, skin lesions, or other NEUROLOGIC: Mild headache, dizziness, denies any numbness tingling weakness confusion altered mental status. PSYCHIATRIC: No concerning psychosocial issues. 12 point review of systems is negative except for those stated above Patient History Medical History Frozen shoulder (Acute) Hyperlipidemia (Acute) Hypertension (Acute) Surgical History No history of previous surgery (Acute) Family History Father Stroke Mother Medical history unknown Brother Sudden Social History household members: none Smoking Status: Former smoker alcohol intake: current Smoking Status: Former smoker alcohol intake frequency: holidays/special occasions only Substance Use Type: does not use Exam Narrative Exam Narrative: GENERAL: [] year old patient appears stated age. Well-nourished, well-developed patient, in mild distress. HEAD: Atraumatic. Normocephalic. EYES: Pupils equal round and reactive. Extraocular motions intact. No scleral icterus. No injection or drainage. ENT: Nose without bleeding, purulent drainage. Throat without erythema, tonsillar hypertrophy or exudate. Airway patent. NECK: Trachea midline. Non tender no carotid bruit CARDIOVASCULAR: Regular rate and rhythm without murmurs, gallops, or rubs. Strong bilateral carotid radial and posterior tibial pulses RESPIRATORY: Clear to auscultation. Breath sounds equal bilaterally. No wheezes, rales, or rhonchi. GASTROINTESTINAL: Abdomen soft, non-tender, nondistended. EXTREMITIES: No edema or joint tenderness. BACK: Nontender without deformity or crepitance. No flank tenderness. NEURO: AOx3. Clear speech and no facial droop light touch intact bilateral face hands and legs. 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 No pronator drift. SKIN: No rash or erythema of visible areas Initial Vital Signs Initial Vital Signs: Vital Signs Temperature 99.0 F 10/06/19 14:12 Pulse Rate 97 H 10/06/19 14:12 Respiratory Rate 20 10/06/19 14:12 Blood Pressure 213/88 H 10/06/19 14:12 Pulse Oximetry 96 10/06/19 14:12 Course Course Course Narrative: Spoke with patient and son. At this time they are comfortable no CT scan head. Headache is only 2/10. Diffuse. No current headache at this time. No altered mental status. No neuro deficits Orders Ordered: ED Orders 10/06/19 14:20 Complete Blood Count AUTO DIFF Stat Comprehensive Metabolic Panel Stat Partial Thromboplastin Time Stat Prothrombin Time INR Stat Troponin & CK Cardiac Panel Stat Discontinued Medications Clonidine HCl (Catapres) 0.1 mg PO NOW ONE Stop: 10/06/19 15:32 Last Admin: 10/06/19 15:45 Dose: 0.1 mg Documented by: BTONER Reevaluation(s) Reevaluation #1: Time 5:48 p.m.. Blood pressure improved after Catapres 0.1 mg. 176/72. Patient up and walking to the bathroom dizziness has improved. No headache no chest pain no numbness tingling or weakness. Patient desires discharge home. Not toxic at discharge. Son at bedside. Patient has appointment with family physician 815 tomorrow morning. Consultations Consultation #1: Time 3:23 p.m.. Spoke with family physician Dr Lezama... She has appointment with her tomorrow. At this time patient is supposed to be on metoprolol and losartan. She would like patient to be on amlodipine 10 mg daily as well. In summary she would like patient on metoprolol 50 mg daily. Losartan 100 mg daily. And amlodipine 10 mg daily. Patient will be given Catapres here. Family physician agrees. Vital Signs Vital signs: Vital Signs - 8 hr 10/06/19 14:12 10/06/19 15:45 10/06/19 17:39 Temperature 99.0 F Pulse Rate 97 H 82 Respiratory Rate 20 Blood Pressure 213/88 H 204/77 H Blood Pressure [Left Arm] 178/74 H Pulse Oximetry 96 Medical Decision Making Differential Diagnosis Differential Diagnosis: Hypertensive urgency/hypertension crisis.. Uncontrolled hypertension Medical Records Medical records reviewed: Yes I reviewed the patient's medical records. Lab Data Lab results reviewed: Yes I reviewed the patient's lab results. Result diagrams: 10/06/19 14:20 10/06/19 14:20 Labs: Lab Results 10/06/19 10/06/19 10/06/19 Range/Units 14:20 14:20 14:20 WBC 6.9 (4.5-11.0) X10^3/uL RBC 3.92 L (4.0-5.2) X10^6/uL Hgb 12.0 (12.0-16.0) g/dL Hct 35.6 L (36-46) % MCV 91.0 (80-100) fL MCH 30.7 (26-34) PG MCHC 33.7 (30-36) % RDW 13.9 (11.6-14.8) % Plt Count 207 (150-400) X10^3/uL Neut % (Auto) 73.0 (50-75) % Lymph % (Auto) 18.5 L (25-40) % [place] % (Auto) 7.1 (3-14) % Eos % (Auto) 0.4 L (2-4) % Baso % (Auto) 1.0 (0-2) % Neut # (Auto) 5100 (3048-5633) /uL Lymph # (Auto) 1300 (0777-4014) /uL [place] # (Auto) 500 (0-900) /uL Eos # (Auto) 0 (0-450) /uL Baso # (Auto) 100 (0-100) /uL PT 14.2 H (10.1-12.7) SECONDS INR 1.2 (0.9-1.3) APTT 24 L D (26.4-36.2) SECONDS Sodium 137 (137-145) mmol/L Potassium 4.9 (3.4-5.1) mmol/L Chloride 104 (98-107) mmol/L Carbon Dioxide 24 (22-32) mmol/L BUN 17 (7-17) mg/dL Creatinine 1.07 H (0.52-1.04) mg/dL Estimated GFR 49.6 L (>60) mL/min BUN/Creatinine Ratio 15.9 (6-22) Glucose 109 (80-110) mg/dL Calcium 9.3 (8.4-10.2) mg/dL Total Bilirubin 0.4 (0.2-1.3) mg/dL AST 30 (14-36) IU/L ALT 14 (<35) IU/L Alkaline Phosphatase 64 (38-126) U/L Total Creatine Kinase 62 (30-135) U/L CK-MB (CK-2) TNP CK-MB (CK-2) Rel Index TNP Troponin I 0.020 (0.01-0.034) ng/mL Total Protein 7.7 (6.3-8.2) g/dL Albumin 4.1 (3.5-5.0) g/dL Globulin 3.6 (1.7-4.1) g/dL Albumin/Globulin Ratio 1.1 (1.0-2.8) ECG Data Attestation: I personally reviewed and interpreted this ECG as follows: Prior ECG tracings: available for review Interpretation: Sinus rhythm, rate 86, no ST elevation. EKG unchanged from May 28, 2019 at 4:05 p.m.. MDM Narrative Medical decision making narrative: Patient states she does not tolerate amlodipine and is not on it. It caused ankle swelling. Discharge Plan Departure Patient Disposition: Home Clinical Impression: Hypertension Qualifiers: Hypertension type: essential hypertension Qualified Code(s): I10 - Essential (primary) hypertension Instructions: DI for High Blood Pressure Activity Restrictions/Additional Instructions: Continue your losartan medication for blood pressure tonight. Do not take metoprolol tonight.. See family physician tomorrow morning as scheduled. Return if worse. Prescriptions: No Action losartan 50 mg Tablet RF: 0 simvastatin 10 mg tablet 10 mg PO DAILY RF: 0 metoprolol succinate 50 mg Tablet Extended Release 24 Hr 50 mg PO DAILY Qty: 30 RF: 0 amlodipine 10 mg tablet 10 mg PO DAILY Qty: 30 RF: 0 Referrals: Andres Sawant MD [Primary Care Provider] -
[2019-10-06 14:46] LABS: INR 1.2 (0.9-1.3); Prothrombin Time 14.2 SECONDS (10.1-12.7)
[2019-10-06 14:47] LABS: Add Manual Diff / Slide Review NO; Basophils Absolute Auto 100 /uL (0-100); Eosinophils Absolute Auto 0 /uL (0-450); Eosinophils Percent Auto 0.4 % (2-4); Hematocrit 35.6 % (36-46); Lymphocytes Absolute Auto 1300 /uL (1100-4500); Lymphocytes Percent Auto 18.5 % (25-40); Mean Corpuscular HGB Conc 33.7 % (30-36); Mean Corpuscular Hemoglobin 30.7 PG (26-34); Monocytes Absolute Auto 500 /uL (0-900); Monocytes Percent Auto 7.1 % (3-14); Neutrophils Absolute Auto 5100 /uL (1500-7000); Platelet Count 207 X10^3/uL (150-400); Red Blood Cell Count 3.92 X10^6/uL (4.0-5.2); Red Cell Distribution Width 13.9 % (11.6-14.8); White Blood Cell Count 6.9 X10^3/uL (4.5-11.0)
[2019-10-06 14:49] LABS: PTT Partial Thromboplastin Tim 24 SECONDS (26.4-36.2)
[2019-10-06 14:50] LABS: Alanine Aminotransferase 14 IU/L (<35); Albumin 4.1 g/dL (3.5-5.0); Albumin Globulin Ratio 1.1 (1.0-2.8); Alkaline Phosphatase 64 U/L (38-126); Aspartate Aminotransferase 30 IU/L (14-36); BUN Creatinine Ratio 15.9 (6-22); Bilirubin Total 0.4 mg/dL (0.2-1.3); Blood Urea Nitrogen 17 mg/dL (7-17); Calcium 9.3 mg/dL (8.4-10.2); Carbon Dioxide 24 mmol/L (22-32); Chloride 104 mmol/L (98-107); Creatine Kinase 62 U/L (30-135); Estimated Glomerular Filt Rate 49.6 mL/min (>60); Globulin 3.6 g/dL (1.7-4.1); Glucose 109 mg/dL (80-110); HEMOLYSIS < 15 (0-50); Potassium 4.9 mmol/L (3.4-5.1); Sodium 137 mmol/L (137-145); Total Protein 7.7 g/dL (6.3-8.2)
[2019-10-06] MEDS: cloNIDine 0.1 MG TABLET PO (15:45)
--- NOTE | 2019-10-06 18:14 | PC.NURSE ---
pt denied chest pain but did have complaints of dizziness on and off since friday evening.
--- NOTE | 2019-10-06 18:15 | PC.NURSE ---
pt ambulated to the restroom at 1730, states she feels less dizzy now.
== END 2019-10-06 18:08 | disposition home or self-care (01) ==
PROVIDERS: Emergency Provider Emergency Medicine; Family Provider Nurse Practitioner Gerontology; PCP Family Medicine
DX: I10 Essential (primary) hypertension (principal); R42 Dizziness and giddiness; R51 Headache
CPT/HCPCS: 80053; 82550; 84484; 85025; 85610; 85730; 93005; 93010; 99284

== ENCOUNTER 2019-10-09 21:05 | Emergency (ER) | payer MEDICARE, SELFPAY ==
[2019-05-28 20:42] VITALS: BMI 31.6
--- NOTE | 2019-10-09 21:14 | ED_ITS ---
HPI - General Adult General Chief complaint: Hypertension Stated complaint: highblood pressure Time Seen by Provider: 10/09/19 21:11 Source: patient Mode of arrival: Ambulatory Limitations: no limitations History of Present Illness HPI narrative: 78-year-old female. Was seen here in the emergency department a couple days ago for hypertension. Review of that note shows that the patient was given Catapres orally which improved her blood pressure and then was discharged home with follow-up the next day. The patient stated she did this. She is currently on metoprolol and losartan. She was started on hydralazine prior primary doctor. Her 1st dose was on Friday. She states she has been taking her blood pressure at home and they have consistently been elevated. She was taking the hydralazine as directed if her systolic blood pressure was greater than 160. She stated that after she was taking the hydralazine she started to become very shaky. She states she is unsure if this is a reaction to the hydralazine. She denies any chest pain or shortness of breath. She states she does have a very slight headache. She was concerned that despite taking hydralazine at home she continued to have elevated blood pressures. Related Data Home Medications Medication Instructions Recorded Confirmed simvastatin 10 mg PO DAILY 05/29/19 05/29/19 losartan 10/06/19 Previous Rx's Medication Instructions Recorded amlodipine 10 mg PO DAILY #30 tab 05/30/19 metoprolol succinate 50 mg PO DAILY #30 tab 05/30/19 Allergies Allergy/AdvReac Type Severity Reaction Status Date / Time amlodipine Allergy Verified 10/06/19 14:24 Review of Systems Constitutional Constitutional: Denies chills, Denies fever(s) and Reports headache(s) Comments: Shaking ENT Ears, Nose, Mouth, and Throat: Reports headache(s), Denies neck pain and Denies sore throat Cardiovascular Cardiovascular: Denies chest pain, Denies rapid heart rate, Denies edema, Denies irregular heart rhythm and Denies dyspnea Respiratory Respiratory: Denies dyspnea Gastrointestinal Gastrointestinal: Denies abdominal pain, Denies change in stool character, Denies nausea and Denies vomiting Genitourinary Genitourinary: Denies dysuria Musculoskeletal Musculoskeletal: Denies myalgias, Denies arthralgias and Denies neck pain Integumentary/Breasts Skin/Breast: Denies lesions and Denies rash Neurologic Neurologic: Denies behavioral changes and Reports headache(s) Psychiatric Psychiatric: Denies behavioral changes Hematologic/Lymphatic Hematologic/Lymphatic: Denies easy bleeding and Denies easy bruising Patient History Medical History Frozen shoulder (Acute) Hyperlipidemia (Acute) Hypertension (Acute) Surgical History No history of previous surgery (Acute) Social History household members: none Smoking Status: Former smoker alcohol intake: current Smoking Status: Former smoker alcohol intake frequency: holidays/special occasions only Substance Use Type: does not use Exam Initial Vital Signs Initial Vital Signs: Vital Signs Temperature 98.4 F 10/09/19 21:16 Pulse Rate 90 10/09/19 21:16 Respiratory Rate 18 10/09/19 21:16 Blood Pressure 199/79 H 10/09/19 21:16 Pulse Oximetry 96 10/09/19 21:16 Const General: cooperative, comfortable and well developed Limitations: mental status not altered HENUT Head: normal to inspection and normocephalic Resp Effort & Inspection: normal respiratory effort Auscultation: clear to auscultation bilaterally Cardio Rate: regular rate Rhythm: regular rhythm Skin Lesions: no lesions Rashes: no rashes Neuro General: alert, awake and oriented x3 Cognition: normal cognition Speech: speech normal Motor: muscle tone normal throughout Extrem General: normal to inspection and capillary refill normal Psych Appearance: grossly normal and well kempt Course Orders Ordered: ED Orders 10/09/19 21:16 EKG-12 Lead Stat 10/09/19 21:45 Basic Metabolic Panel Stat Complete Blood Count AUTO DIFF Stat Discontinued Medications Clonidine HCl (Catapres) 0.1 mg PO NOW ONE Stop: 10/09/19 21:39 Last Admin: 10/09/19 21:44 Dose: 0.1 mg Documented by: SHITAL Vital Signs Vital signs: Vital Signs - 8 hr 10/09/19 21:16 10/09/19 21:44 10/09/19 21:53 Temperature 98.4 F Pulse Rate 90 72 76 Respiratory Rate 18 18 Blood Pressure 199/79 H 199/79 H Blood Pressure [Left Arm] 151/68 H Pulse Oximetry 96 98 04/25/20 22:00 10/09/19 22:56 Temperature Pulse Rate 69 70 Respiratory Rate 17 20 Blood Pressure 171/72 H Blood Pressure [Left Arm] 174/73 H Pulse Oximetry 95 94 Medical Decision Making Lab Data Lab results reviewed: Yes I reviewed the patient's lab results. Result diagrams: 10/09/19 21:45 10/09/19 21:45 Labs: Lab Results 10/09/19 10/09/19 Range/Units 21:45 21:45 WBC 7.7 (4.5-11.0) X10^3/uL RBC 3.64 L (4.0-5.2) X10^6/uL Hgb 11.1 L (12.0-16.0) g/dL Hct 33.3 L (36-46) % MCV 91.3 (80-100) fL MCH 30.5 (26-34) PG MCHC 33.4 (30-36) % RDW 14.0 (11.6-14.8) % Plt Count 192 (150-400) X10^3/uL Neut % (Auto) 61.4 (50-75) % Lymph % (Auto) 25.1 (25-40) % [place] % (Auto) 10.7 (3-14) % Eos % (Auto) 1.6 L (2-4) % Baso % (Auto) 1.2 (0-2) % Neut # (Auto) 4700 (3748-7417) /uL Lymph # (Auto) 1900 (4922-0362) /uL [place] # (Auto) 800 (0-900) /uL Eos # (Auto) 100 (0-450) /uL Baso # (Auto) 100 (0-100) /uL Sodium 134 L (137-145) mmol/L Potassium 3.8 (3.4-5.1) mmol/L Chloride 104 (98-107) mmol/L Carbon Dioxide 24 (22-32) mmol/L BUN 20 H (7-17) mg/dL Creatinine 1.16 H (0.52-1.04) mg/dL Estimated GFR 45.2 L (>60) mL/min BUN/Creatinine Ratio 17.2 (6-22) Glucose 102 (80-110) mg/dL Calcium 9.0 (8.4-10.2) mg/dL ECG Data Attestation: I personally reviewed and interpreted this ECG as follows: Prior ECG tracings: not available for review Interpretation: Sinus rhythm Ventricular rate is 75 Normal axis Normal QRS Normal QTC No ST T wave changes MDM Narrative Medical decision making narrative: Patient was hypertensive upon arrival. She has a normal EKG. Creatinine is unremarkable. Low suspicion for heart failure. Low suspicion for intracranial hemorrhage. Had a long discussion with the patient and her family at bedside regarding blood pressure. We did discuss blood pressure management how she should take her blood pressure at home. We did discuss that unsure if the shaking that she is having is related to the hydralazine versus her blood pressure verses potentially this shaking is was causing her elevated blood pressure. We talked that you can potentially have uneasy feelings when starting new blood pressure medications because it is changing blood pressure that her body is used to. I feel we could hold on further workup for now. We did discuss return precautions and follow-up instructions. She is going to continue her medications as directed. She and family expressed understanding and agreement. Discharge Plan Departure Patient Disposition: Home Clinical Impression: Hypertension Qualifiers: Hypertension type: unspecified Qualified Code(s): I10 - Essential (primary) hypertension Discharge Date/Time: 10/09/19 23:03 Instructions: DI for High Blood Pressure Activity Restrictions/Additional Instructions: Recommend that you continue to take your blood pressure and take your medications like we discussed. Contact your primary provider on Friday to discuss any changes in medicines. Return to the emergency department for any of the symptoms like we discussed Prescriptions: No Action losartan 50 mg Tablet RF: 0 simvastatin 10 mg tablet 10 mg PO DAILY RF: 0 metoprolol succinate 50 mg Tablet Extended Release 24 Hr 50 mg PO DAILY Qty: 30 RF: 0 amlodipine 10 mg tablet 10 mg PO DAILY Qty: 30 RF: 0 Referrals: Day Lezama DO [Primary Care Provider] -
[2019-10-09 21:16] VITALS: BP 199/79; PULSE 90; RESP 18; TEMP 36.9; O2SAT 96; BMI 31.7
--- NOTE | 2019-10-09 21:39 | PC.NURSE ---
Jenny bearden treated for HTN two days ago. Reports slight headache tonight and blood pressure elevated again. Concerns of burning in eyes and intermittent shaking. Patient denies chest pain or SOB.
[2019-10-09 21:44] VITALS: BP 199/79; PULSE 72
[2019-10-09] MEDS: cloNIDine 0.1 MG TABLET PO (21:44)
[2019-10-09 21:53] VITALS: BP 151/68; PULSE 76; RESP 18; O2SAT 98
[2019-10-09 22:00] VITALS: BP 174/73; PULSE 69; RESP 17; O2SAT 95
[2019-10-09 22:00] LABS: Add Manual Diff / Slide Review NO; Basophils Absolute Auto 100 /uL (0-100); Basophils Percent Auto 1.2 % (0-2); Eosinophils Absolute Auto 100 /uL (0-450); Eosinophils Percent Auto 1.6 % (2-4); Hematocrit 33.3 % (36-46); Hemoglobin 11.1 g/dL (12.0-16.0); Lymphocytes Absolute Auto 1900 /uL (1100-4500); Lymphocytes Percent Auto 25.1 % (25-40); Mean Corpuscular HGB Conc 33.4 % (30-36); Mean Corpuscular Hemoglobin 30.5 PG (26-34); Mean Corpuscular Volume 91.3 fL (80-100); Monocytes Absolute Auto 800 /uL (0-900); Monocytes Percent Auto 10.7 % (3-14); Neutrophils Absolute Auto 4700 /uL (1500-7000); Neutrophils Percent Auto 61.4 % (50-75); Platelet Count 192 X10^3/uL (150-400); Red Blood Cell Count 3.64 X10^6/uL (4.0-5.2); White Blood Cell Count 7.7 X10^3/uL (4.5-11.0)
[2019-10-09 22:05] LABS: BUN Creatinine Ratio 17.2 (6-22); Blood Urea Nitrogen 20 mg/dL (7-17); Carbon Dioxide 24 mmol/L (22-32); Chloride 104 mmol/L (98-107); Estimated Glomerular Filt Rate 45.2 mL/min (>60); Glucose 102 mg/dL (80-110); HEMOLYSIS < 15 (0-50); Potassium 3.8 mmol/L (3.4-5.1); Sodium 134 mmol/L (137-145)
[2019-10-09 22:56] VITALS: BP 171/72; PULSE 70; RESP 20; O2SAT 94
== END 2019-10-09 23:03 | disposition home or self-care (01) ==
PROVIDERS: Emergency Provider Emergency Medicine; Family Provider Nurse Practitioner Gerontology; PCP Family Medicine
DX: I10 Essential (primary) hypertension (principal)
CPT/HCPCS: 36415; 80048; 85025; 93005; 93010; 99284

== ENCOUNTER 2019-10-22 18:54 | Emergency (ER) | payer MEDICARE, SELFPAY ==
[2019-05-28 20:42] VITALS: BMI 31.6
[2019-10-22] VITALS (8 sets, daily range): BP systolic 167–187; BP diastolic 70–93; PULSE 71–99; RESP 18–21; TEMP 36.5–36.6; O2SAT 95–98; BMI 31.3
--- NOTE | 2019-10-22 18:55 | DI.RAD.S_ITS ---
PROCEDURE: XR CHEST 1V INDICATIONS: chest pain TECHNIQUE: One view of the chest was acquired. COMPARISON: None. FINDINGS: Surgical changes and devices: None. Lungs and pleura: Minimal increased vascularity. No pleural effusions or pneumothorax. Mediastinum: Mediastinal contours appear normal. Heart size is normal. Bones and chest wall: No suspicious bony lesions. Overlying soft tissues appear unremarkable. IMPRESSION: Minimal increased vascularity suggestive of edema. Dictated by: Annabella Khan M.D. on 10/22/2019 at 19:49 Approved by: Annabella Khan M.D. on 10/22/2019 at 19:50
--- NOTE | 2019-10-22 18:59 | ED.CHESTPAIN ---
HPI - Chest Pain General Chief Complaint: Chest Pain Stated Complaint: chest pain Time Seen by Provider: 10/22/19 18:57 Source: patient and family Mode of arrival: EMS Limitations: no limitations History of Present Illness HPI narrative: 78F non smoker with history of hypertension and hyperlipidemia as well as pulmonary emboli on Xarelto presents by EMS for evaluation of multiple episodes of chest pressure over the course of the day. Her 1st instance was at about 2:00 p.m. while she was driving and she explains a heavy central chest pressure that lasted probably 15-20 minutes and resolved on its own. Over the course of the day she has had an increasing number and intensity of episodes and called EMS just prior to her arrival. On their arrival she was having very intense pressure, heaviness and she was given nitro which resolved her discomfort almost completely. During transport she had another episode which also resolved with nitro. She denies associated symptoms such as nausea, vomiting, diaphoresis. She does state that over the past few weeks she has had an increased amount of dyspnea with any exertion. She denies runny nose, sore throat or fever or chills. Patient also had full dose aspirin. MD complaint: chest pain Onset (ago): hour(s) Duration: intermittent, progressively worsening and now resolved Onset: during rest Pain location: substernal Severity: moderate Quality: aching and heaviness Pain radiation: none Relieving factors: nitroglycerin Exacerbating factors: nothing Treatments prior to arrival chest pain: aspirin, nitroglycerin and oxygen Related Data Home Medications Medication Instructions Recorded Confirmed simvastatin 10 mg PO DAILY 05/29/19 10/22/19 losartan 100 mg PO DAILY 10/06/19 10/22/19 escitalopram oxalate 10 mg PO DAILY 10/22/19 10/22/19 furosemide 20 mg PO DAILY 10/22/19 10/22/19 hyalur ac-chond sul-colg II-AA 2 cap PO DAILY 10/22/19 10/22/19 [Hyaluronic Acid (chond-collgn)] nitrofurantoin monohyd/m-cryst 100 mg PO BID 10/22/19 10/22/19 omega 4-srm-kzz-fish oil [Fish Oil] 1 cap PO TID 10/22/19 10/22/19 rivaroxaban [Xarelto] 20 mg PO DAILY 10/22/19 10/22/19 Previous Rx's Medication Instructions Recorded metoprolol succinate 50 mg PO DAILY #30 tab 05/30/19 Allergies Allergy/AdvReac Type Severity Reaction Status Date / Time amlodipine Allergy Verified 10/06/19 14:24 Review of Systems Constitutional Constitutional: Denies chills, Denies fatigue, Denies fever(s), Denies frequent falls, Denies lethargy and Denies weakness Eyes Eyes: Denies change in vision, Denies eye discharge, Denies irritation and Denies loss of vision ENT Ears, Nose, Mouth, and Throat: Denies change in voice, Denies dizziness, Denies neck pain, Denies sore throat and Denies throat swelling Cardiovascular Cardiovascular: Reports chest pain, Denies irregular heart rhythm, Denies lightheadedness, Denies palpitations, Reports dyspnea, Reports dyspnea on exertion and Denies orthopnea Respiratory Respiratory: Denies cough, Reports dyspnea, Reports dyspnea on exertion and Denies wheezing Gastrointestinal Gastrointestinal: Denies abdominal pain, Denies change in bowel habits, Denies diarrhea, Denies nausea and Denies vomiting Genitourinary Genitourinary: Denies hematuria, Denies flank pain, Denies urinary incontinence and Denies urinary urgency Musculoskeletal Musculoskeletal: Denies back pain, Denies muscle weakness, Denies neck pain, Denies numbness and Denies tingling Integumentary/Breasts Skin/Breast: Denies pruritus, Denies erythema, Denies rash and Denies wounds Neurologic Neurologic: Denies behavioral changes, Denies confusion, Denies dizziness, Denies frequent falls, Denies loss of vision, Denies numbness, Denies tingling and Denies weakness Psychiatric Psychiatric: Denies anxiety, Denies behavioral changes, Denies confusion, Denies depression, Denies homicidal ideation and Denies suicidal ideation Endocrine Endocrine: Denies fatigue, Denies flushing and Denies palpitations Hematologic/Lymphatic Hematologic/Lymphatic: Denies easy bruising Allergic/Immunologic Allergic/Immunologic: Denies urticaria, Denies throat swelling and Denies wheezing Patient History Medical History Frozen shoulder (Acute) Hyperlipidemia (Acute) Hypertension (Acute) Surgical History No history of previous surgery (Acute) Family History Father Stroke Mother Medical history unknown Brother Sudden Social History household members: none Smoking Status: Former smoker alcohol intake: current Smoking Status: Former smoker alcohol intake frequency: holidays/special occasions only Substance Use Type: does not use Exam Narrative Exam Narrative: GENERAL: [78] year old patient appears stated age. Well-nourished, well-developed patient, in mild distress. HEAD: Atraumatic. Normocephalic. EYES: Pupils equal round and reactive. Extraocular motions intact. No scleral icterus. No injection or drainage. ENT: Nose without bleeding, purulent drainage. Throat without erythema, tonsillar hypertrophy or exudate. Airway patent. NECK: Trachea midline. Non tender CARDIOVASCULAR: Regular rate and rhythm without murmurs, gallops, or rubs. RESPIRATORY: Clear to auscultation. Breath sounds equal bilaterally. No wheezes, rales, or rhonchi. GASTROINTESTINAL: Abdomen soft, non-tender, nondistended. EXTREMITIES: No edema or joint tenderness. BACK: Nontender without deformity or crepitance. No flank tenderness. NEURO: AOx3. SKIN: No rash or erythema of visible areas Initial Vital Signs Initial Vital Signs: Vital Signs Temperature 97.8 F 10/22/19 19:04 Pulse Rate 83 10/22/19 19:04 Respiratory Rate 20 10/22/19 19:04 Blood Pressure 187/77 H 10/22/19 19:04 Pulse Oximetry 96 10/22/19 19:04 Course Orders Ordered: ED Orders 10/22/19 18:55 XR chest 1V Stat 10/22/19 19:02 EKG-12 Lead Stat 10/22/19 19:09 Complete Blood Count AUTO DIFF Stat Comprehensive Metabolic Panel Stat Lipase Stat Partial Thromboplastin Time Stat Prothrombin Time INR Stat Troponin & CK Cardiac Panel Stat 10/22/19 19:30 EKG-12 Lead Routine 10/22/19 19:53 EKG-12 Lead Stat Heparin Sodium/Dextrose (Heparin Drip) 25,000 unit in 500 mls @ 20 mls/hr IV CONT DANNIE; Protocol Last Titration: 10/22/19 21:31 Dose: 0 units/hr, 0 mls/hr Documented by: Admin: 10/22/19 20:15 Dose: 1,000 units/hr, 20 mls/hr Documented by: CANDICE Nitroglycerin (Nitrostat) 0.4 mg SL [id number] PRN PRN Reason: Chest Pain Last Admin: 10/22/19 21:24 Dose: 0.4 mg Documented by: Admin: 10/22/19 20:14 Dose: 0.4 mg Documented by: CANDICE Discontinued Medications Heparin Sodium (Porcine) (Heparin) 5,000 unit IV NOW ONE Stop: 10/22/19 19:54 Last Admin: 10/22/19 20:15 Dose: 5,000 unit Documented by: CANDICE Metoprolol Succinate (Toprol Xl) 50 mg PO NOW ONE Stop: 10/22/19 19:18 Last Admin: 10/22/19 19:32 Dose: 50 mg Documented by: CORNELIUS Reevaluation(s) Reevaluation #1: patient had recurrence of pain. Repeat EKG ordered as well as NG. This is relayed to Cardio. Consultations Consultation #1: page to Cardio at [facility] (Her cardio is Elliott). She has NEVER had a stress test or heart cath. Cardio in complete agreement, suggests transfer, admit to hospitalist. Dr. Antunez is happy to accept. We will stop the heparin for now Vital Signs Vital signs: Vital Signs - 8 hr 10/22/19 19:04 10/22/19 19:32 10/22/19 20:14 Temperature 97.8 F Pulse Rate 83 99 H 80 Respiratory Rate 20 Blood Pressure 187/77 H 177/79 H 175/93 H Blood Pressure [Right Arm] Pulse Oximetry 96 10/22/19 20:32 10/22/19 21:06 10/22/19 21:21 Temperature 97.7 F Pulse Rate 73 71 72 Respiratory Rate 20 18 Blood Pressure 187/76 H Blood Pressure [Right Arm] 167/70 H 187/76 H Pulse Oximetry 96 98 10/22/19 21:24 10/22/19 21:39 Temperature Pulse Rate 72 71 Respiratory Rate 21 Blood Pressure 187/76 H Blood Pressure [Right Arm] 174/71 H Pulse Oximetry 95 MDM - Chest Pain Lab Data Result diagrams: 10/22/19 19:09 10/22/19 19:09 Labs: Lab Results 10/22/19 10/22/19 10/22/19 Range/Units 19:09 19:09 19:09 WBC 9.1 (4.5-11.0) X10^3/uL RBC 3.71 L (4.0-5.2) X10^6/uL Hgb 11.5 L (12.0-16.0) g/dL Hct 33.7 L (36-46) % MCV 90.9 (80-100) fL MCH 31.0 (26-34) PG MCHC 34.1 (30-36) % RDW 13.7 (11.6-14.8) % Plt Count 206 (150-400) X10^3/uL Neut % (Auto) 70.9 (50-75) % Lymph % (Auto) 18.7 L (25-40) % [place] % (Auto) 8.6 (3-14) % Eos % (Auto) 0.9 L (2-4) % Baso % (Auto) 0.9 (0-2) % Neut # (Auto) 6500 (6297-9618) /uL Lymph # (Auto) 1700 (7544-3317) /uL [place] # (Auto) 800 (0-900) /uL Eos # (Auto) 100 (0-450) /uL Baso # (Auto) 100 (0-100) /uL PT 23.5 H (10.1-12.7) SECONDS INR 2.0 H (0.9-1.3) APTT 39 H D (26.4-36.2) SECONDS Sodium 137 (137-145) mmol/L Potassium 4.1 (3.4-5.1) mmol/L Chloride 103 (98-107) mmol/L Carbon Dioxide 25 (22-32) mmol/L BUN 20 H (7-17) mg/dL Creatinine 1.13 H (0.52-1.04) mg/dL Estimated GFR 46.6 L (>60) mL/min BUN/Creatinine Ratio 17.7 (6-22) Glucose 105 (80-110) mg/dL Calcium 9.1 (8.4-10.2) mg/dL Total Bilirubin 0.4 (0.2-1.3) mg/dL AST 27 (14-36) IU/L ALT 14 (<35) IU/L Alkaline Phosphatase 67 (38-126) U/L Total Creatine Kinase 111 (30-135) U/L CK-MB (CK-2) 1.44 (<2.37) ng/mL CK-MB (CK-2) Rel Index 1.3 L (1.5-5.0) % Troponin I < 0.012 (0.01-0.034) ng/mL Total Protein 7.3 (6.3-8.2) g/dL Albumin 4.0 (3.5-5.0) g/dL Globulin 3.3 (1.7-4.1) g/dL Albumin/Globulin Ratio 1.2 (1.0-2.8) Lipase 122 (23-300) U/L Discharge Plan Departure Prescriptions: No Action losartan 50 mg Tablet 100 mg PO DAILY RF: 0 furosemide 20 mg tablet 20 mg PO DAILY RF: 0 escitalopram oxalate 10 mg tablet 10 mg PO DAILY RF: 0 omega 8-bqz-keb-fish oil [Fish Oil] 1,000 mg (120 mg-180 mg) Capsule 1 cap PO TID RF: 0 Hyaluronic Acid (chond-collgn) 40-80-400 mg Capsule 2 cap PO DAILY RF: 0 Xarelto 20 mg tablet 20 mg PO DAILY RF: 0 nitrofurantoin monohyd/m-cryst 100 mg capsule 100 mg PO BID RF: 0 simvastatin 10 mg tablet 10 mg PO DAILY RF: 0 metoprolol succinate 50 mg Tablet Extended Release 24 Hr 50 mg PO DAILY Qty: 30 RF: 0
[2019-10-22 19:17] LABS: Add Manual Diff / Slide Review NO; Basophils Absolute Auto 100 /uL (0-100); Basophils Percent Auto 0.9 % (0-2); Eosinophils Absolute Auto 100 /uL (0-450); Eosinophils Percent Auto 0.9 % (2-4); Hematocrit 33.7 % (36-46); Hemoglobin 11.5 g/dL (12.0-16.0); Lymphocytes Absolute Auto 1700 /uL (1100-4500); Lymphocytes Percent Auto 18.7 % (25-40); Mean Corpuscular HGB Conc 34.1 % (30-36); Mean Corpuscular Volume 90.9 fL (80-100); Monocytes Absolute Auto 800 /uL (0-900); Monocytes Percent Auto 8.6 % (3-14); Neutrophils Absolute Auto 6500 /uL (1500-7000); Neutrophils Percent Auto 70.9 % (50-75); Platelet Count 206 X10^3/uL (150-400); Red Blood Cell Count 3.71 X10^6/uL (4.0-5.2); Red Cell Distribution Width 13.7 % (11.6-14.8); White Blood Cell Count 9.1 X10^3/uL (4.5-11.0)
[2019-10-22 19:25] LABS: Prothrombin Time 23.5 SECONDS (10.1-12.7)
[2019-10-22 19:27] LABS: PTT Partial Thromboplastin Tim 39 SECONDS (26.4-36.2)
[2019-10-22 19:29] LABS: Alanine Aminotransferase 14 IU/L (<35); Albumin Globulin Ratio 1.2 (1.0-2.8); Alkaline Phosphatase 67 U/L (38-126); Aspartate Aminotransferase 27 IU/L (14-36); BUN Creatinine Ratio 17.7 (6-22); Bilirubin Total 0.4 mg/dL (0.2-1.3); Blood Urea Nitrogen 20 mg/dL (7-17); Calcium 9.1 mg/dL (8.4-10.2); Carbon Dioxide 25 mmol/L (22-32); Chloride 103 mmol/L (98-107); Creatine Kinase 111 U/L (30-135); Estimated Glomerular Filt Rate 46.6 mL/min (>60); Globulin 3.3 g/dL (1.7-4.1); Glucose 105 mg/dL (80-110); HEMOLYSIS < 15 (0-50); Lipase 122 U/L (23-300); Potassium 4.1 mmol/L (3.4-5.1); Sodium 137 mmol/L (137-145); Total Protein 7.3 g/dL (6.3-8.2)
[2019-10-22] MEDS: METOPROLOL ER 50 MG TABLET PO (19:32)
[2019-10-22 19:41] LABS: Troponin I < 0.012 ng/mL (0.01-0.034)
[2019-10-22 19:44] LABS: CKMB % Relative Index 1.3 % (1.5-5.0); Creatine Kinase MB 1.44 ng/mL (<2.37)
[2019-10-22] MEDS: NITROGLYCERIN 0.4 MG SL TAB SL ×2 (20:14→21:24)
[2019-10-22] MEDS: HEPARIN 5,000 UNIT/ML VIAL 5000 UNIT IV (20:15)
[2019-10-22] MEDS: HEPARIN DRIP 25,000 UNIT/500 ML IV.SOLN 20 UNIT IV (20:15)
--- NOTE | 2019-10-22 20:27 | PC.NURSE ---
Pt reported chest pain and she was treated with 1 Nitro tab. Chest pain went away within 1 minute.
== END 2019-10-22 22:10 | disposition short-term general hospital (02) ==
PROVIDERS: Emergency Provider Emergency Medicine; Family Provider Nurse Practitioner Gerontology; PCP Family Medicine
DX: I20.0 Unstable angina (principal); I10 Essential (primary) hypertension; E78.5 Hyperlipidemia, unspecified; I26.99 Other pulmonary embolism without acute cor pulmonale
CPT/HCPCS: 36415; 71045; 80053; 82550; 82553; 83690; 84484; 85025; 85610; 85730; 93005; 96365; 96375; 99285; J1644

== ENCOUNTER 2020-01-03 13:19 | Emergency (ER) | payer MEDICARE, SELFPAY ==
[2019-11-12 12:38] VITALS: BMI 31.6
[2020-01-03] VITALS (10 sets, daily range): BP systolic 155–177; BP diastolic 66–103; PULSE 67–78; RESP 17–25; TEMP 36.6; O2SAT 93–99; BMI 29.0
--- NOTE | 2020-01-03 13:34 | DI.RAD.S_ITS ---
PROCEDURE: XR CHEST 1V INDICATIONS: chest pain TECHNIQUE: One view of the chest was acquired. COMPARISON: [facility], CR, XR CHEST 1V, 10/22/2019, 19:00. FINDINGS: Surgical changes and devices: None. Lungs and pleura: Lungs are clear. No pleural effusions or pneumothorax. Mediastinum: Mediastinal contours appear normal. Heart size is normal. Median sternotomy changes are present. Bones and chest wall: No suspicious bony lesions. Overlying soft tissues appear unremarkable. IMPRESSION: No acute cardiopulmonary process is evident. Dictated by: Bob Rivera M.D. on 01/03/2020 at 13:45 Approved by: Bob Rivera M.D. on 01/03/2020 at 13:46
--- NOTE | 2020-01-03 13:39 | ED.CHESTPAIN ---
HPI - Chest Pain General Chief Complaint: Chest Pain Stated Complaint: Chest px and back px Time Seen by Provider: 01/03/20 13:31 Source: EMS Mode of arrival: Ambulatory Limitations: no limitations History of Present Illness HPI narrative: The patient developed upper sternal chest pain at home prior to arrival here. The pain radiated to her thoracic back. She has had multiple prior episodes. She was previously seen here with similar complaints, but was noted to be very hypertensive with systolic pressure greater than 200. She has followed up with Cardiology, Dr. Gallagher. I discussed the case with Dr. Gallagher. She did exceptionally well on a stress test. She has aortic stenosis. We discussed the echo report, he assures me he does not believe the aortic valve to have any impact on current symptoms. After developing chest pain, the patient initially went to the local walk-in clinic, they quickly deferred her to the ER. She is on medications for hypertension, there been recent adjustments. She is compliant with medications. She has no URI symptoms, no sore throat, no cough or fever. Related Data Home Medications Medication Instructions Recorded Confirmed losartan 100 mg PO DAILY 10/06/19 12/30/19 furosemide 20 mg PO DAILY 10/22/19 12/30/19 hyalur ac-chond sul-colg II-AA 2 cap PO DAILY 10/22/19 12/30/19 [Hyaluronic Acid (chond-collgn)] omega 8-ecu-csc-fish oil [Fish Oil] 1 cap PO TID 10/22/19 12/30/19 amlodipine 5 mg tablet 10 mg PO DAILY tab 12/30/19 12/30/19 lorazepam 0.5 mg tablet 0.5 mg PO BID PRN tab 12/30/19 12/30/19 metoprolol succinate 50 mg 25 mg PO DAILY tab 12/30/19 12/30/19 tablet,extended release 24 hr simvastatin 10 mg tablet 10 mg PO .COMPLEX 12/30/19 12/30/19 Previous Rx's Medication Instructions Recorded buspirone 5 mg tablet See Rx Instructions .ROUTE 12/30/19 .COMPLEX #30 tab Allergies Allergy/AdvReac Type Severity Reaction Status Date / Time amlodipine Allergy Verified 12/30/19 11:38 buspirone AdvReac Intermediate jittery, Verified 12/30/19 11:38 insomnia escitalopram AdvReac Intermediate incontinence, Verified 12/30/19 11:38 insomnia sertraline AdvReac Intermediate incontinence, Verified 12/30/19 11:38 insomnia Review of Systems Review of Systems ROS Unobtainable: All systems reviewed & are unremarkable except as noted in HPI and below Constitutional Constitutional: Denies chills, Denies fever(s), Denies headache(s), Denies lethargy and Denies malaise Eyes Eyes: Denies blurry vision and Denies change in vision ENT Ears, Nose, Mouth, and Throat: Denies vertigo, Denies dizziness and Denies headache(s) Cardiovascular Cardiovascular: Denies chest pain, Denies irregular heart rhythm, Denies lightheadedness, Denies dyspnea, Denies dyspnea on exertion and Denies orthopnea Respiratory Respiratory: Denies cough, Denies dyspnea, Denies dyspnea on exertion and Denies wheezing Gastrointestinal Gastrointestinal: Denies abdominal pain, Denies change in bowel habits, Denies diarrhea, Denies nausea and Denies vomiting Musculoskeletal Musculoskeletal: Reports as per HPI and Reports back pain Integumentary/Breasts Skin/Breast: Denies pruritus, Denies erythema, Denies rash and Denies wounds Neurologic Neurologic: Denies confusion, Denies vertigo, Denies dizziness and Denies headache(s) Psychiatric Psychiatric: Denies anxiety, Denies confusion and Denies depression Allergic/Immunologic Allergic/Immunologic: Denies wheezing Patient History Medical History Frozen shoulder (Acute) Hyperlipidemia (Acute) Hypertension (Acute) Major depressive disorder, recurrent episode (Acute) Surgical History No history of previous surgery (Acute) Family History Father Stroke Mother Medical history unknown Brother Sudden Social History household members: none Smoking Status: Former smoker alcohol intake: current Smoking Status: Former smoker alcohol intake frequency: holidays/special occasions only Substance Use Type: does not use Exam Initial Vital Signs Initial Vital Signs: Vital Signs Pulse Rate 73 01/03/20 13:23 Respiratory Rate 21 01/03/20 13:23 Const General: cooperative and well developed Nutritional Appearance: well nourished [facility] Head: normocephalic and atraumatic Mouth: oral mucosae normal and moist mucous membranes Throat: tonsils normal and uvula midline Neck Neck: No JVD Chest Chest: normal inspection of the chest Resp Effort & Inspection: normal respiratory effort and able to speak in complete sentences Auscultation: clear to auscultation bilaterally, no rales, no rhonchi and no wheezes Cardio Rate: regular rate Rhythm: regular rhythm Heart Sounds: S1 normal, S2 normal, no click, no gallops, no murmurs and no rubs Pulses: normal peripheral pulses GI Inspection: non-distended Palpation: soft, no hepatosplenomegaly, No guarding, No pulsatile mass and No tender Auscultation: normal bowel sounds Back/Spine/Pelvis Other: Moderate to severe thoracic kyphosis. No palpable tenderness. Skin General: no rashes or lesions noted and No petechiae Neuro General: patient alert, patient oriented x3, gait normal and no focal motor deficits Speech: speech normal Extrem General: full ROM, no clubbing, cyanosis or edema, no pedal edema and no calf tenderness Psych Appearance: well kempt Mental Status: mental status grossly normal Course Course Course Narrative: The patient has been asymptomatic since arrival. I discussed the case with the reagent tender, Dr. Gill. We reviewed her cardiology history. Reviewed her medications. He suggested raising or Norvasc to 10 mg daily. She has notable kyphosis. I also discussed her thoracic spine being a primary cause of pain. Orders Ordered: ED Orders 01/03/20 13:34 XR chest 1V Stat EKG-12 Lead Stat 01/03/20 14:17 Complete Blood Count AUTO DIFF Stat Comprehensive Metabolic Panel Stat Lipase Stat Troponin & CK Cardiac Panel Stat Discontinued Medications Aspirin (Aspirin Chew) 324 mg PO NOW ONE Stop: 01/03/20 13:35 Last Admin: 01/03/20 14:06 Dose: Not Given Documented by: CANDICE Sodium Chloride (Normal Saline 0.9%) 1,000 mls @ 150 mls/hr IV CONT DANNIE Last Infusion: 01/03/20 15:55 Dose: 0 mls/hr Documented by: Admin: 01/03/20 14:29 Dose: 150 mls/hr Documented by: CANDICE Lorazepam (Ativan) 0.5 mg PO NOW ONE Stop: 01/03/20 15:04 Last Admin: 01/03/20 15:06 Dose: 0.5 mg Documented by: CANDICE Vital Signs Vital signs: Vital Signs - 8 hr 01/03/20 13:23 01/03/20 13:30 01/03/20 13:32 Temperature 97.8 F Pulse Rate 73 67 68 Respiratory Rate 21 22 17 Blood Pressure 177/77 H Pulse Oximetry 95 01/03/20 13:40 01/03/20 14:05 01/03/20 14:30 Temperature Pulse Rate 69 74 70 Respiratory Rate 19 18 22 Blood Pressure 155/103 H Pulse Oximetry 96 93 99 01/03/20 15:00 01/03/20 15:30 01/03/20 15:40 Temperature Pulse Rate 75 73 78 Respiratory Rate 20 25 H Blood Pressure 161/73 H Pulse Oximetry 95 94 96 01/03/20 15:41 Temperature Pulse Rate 72 Respiratory Rate Blood Pressure 161/66 H Pulse Oximetry 96 MDM - Chest Pain Lab Data Result diagrams: 01/03/20 14:17 01/03/20 14:17 Labs: Lab Results 01/03/20 01/03/20 Range/Units 14:17 14:17 WBC 6.8 (4.5-11.0) X10^3/uL RBC 3.75 L (4.0-5.2) X10^6/uL Hgb 11.4 L (12.0-16.0) g/dL Hct 34.5 L (36-46) % MCV 92.0 (80-100) fL MCH 30.4 (26-34) PG MCHC 33.0 (30-36) % RDW 13.7 (11.6-14.8) % Plt Count 219 (150-400) X10^3/uL Neut % (Auto) 70.2 (50-75) % Lymph % (Auto) 20.4 L (25-40) % [place] % (Auto) 7.6 (3-14) % Eos % (Auto) 0.9 L (2-4) % Baso % (Auto) 0.9 (0-2) % Neut # (Auto) 4800 (8885-8858) /uL Lymph # (Auto) 1400 (4483-1952) /uL [place] # (Auto) 500 (0-900) /uL Eos # (Auto) 100 (0-450) /uL Baso # (Auto) 100 (0-100) /uL Sodium 138 (137-145) mmol/L Potassium 4.1 (3.4-5.1) mmol/L Chloride 103 (98-107) mmol/L Carbon Dioxide 31 (22-32) mmol/L BUN 23 H (7-17) mg/dL Creatinine 1.26 H (0.52-1.04) mg/dL Estimated GFR 41.0 L (>60) mL/min BUN/Creatinine Ratio 18.3 (6-22) Glucose 93 (80-110) mg/dL Calcium 9.7 (8.4-10.2) mg/dL Total Bilirubin 0.4 (0.2-1.3) mg/dL AST 28 (14-36) IU/L ALT 13 (<35) IU/L Alkaline Phosphatase 59 (38-126) U/L Total Creatine Kinase 84 (30-135) U/L CK-MB (CK-2) TNP CK-MB (CK-2) Rel Index TNP Troponin I 0.034 (0.01-0.034) ng/mL Total Protein 7.3 (6.3-8.2) g/dL Albumin 4.2 (3.5-5.0) g/dL Globulin 3.1 (1.7-4.1) g/dL Albumin/Globulin Ratio 1.4 (1.0-2.8) Lipase 195 (23-300) U/L Urine Dip Bedside Urine Glucose Negative Bedside Urine Bilirubin - Negative Bedside Urine Ketone - Negative Urine Specific [place] 1.010 Bedside Urine Occult Blood - Negative Bedside Urine pH 6.5 Bedside Urine Protein - Negative Bedside Urine Urobilinogen - Negative Bedside Urine Nitrite - Negative Bedside Urine Leukocytes - Negative Esterase Imaging Data Chest x-ray: Radiologist's Impression: [address] [address] XRay Report Signed Patient: Yuki Wright JMR#: [id number] : 1Acct:[id number] Age/Sex: 79 / FDate of Service: 01/03/20 Loc: ED Accession Number: [id number] Procedure: XR chest 1V Ordering Provider: Emanuel Ferrara MD PROCEDURE: XR CHEST 1V INDICATIONS: chest pain TECHNIQUE: One view of the chest was acquired. COMPARISON: [facility], CR, XR CHEST 1V, 10/22/2019, 19:00. FINDINGS: Surgical changes and devices: None. Lungs and pleura: Lungs are clear. No pleural effusions or pneumothorax. Mediastinum: Mediastinal contours appear normal. Heart size is normal. Median sternotomy changes are present. Bones and chest wall: No suspicious bony lesions. Overlying soft tissues appear unremarkable. IMPRESSION: No acute cardiopulmonary process is evident. Dictated by: Bob Rivera M.D. on 01/03/2020 at 13:45 Approved by: Bob Rivera M.D. on 01/03/2020 at 13:46 ECG Data Attestation: I personally reviewed and interpreted this ECG as follows: (Normal sinus rhythm rate 69 beats per minute. Normal intervals. No ectopy. No acute ST T wave changes.) Discharge Plan Departure Patient Disposition: Home Clinical Impression: Hypertension, Back pain, thoracic Discharge Date/Time: 01/03/20 17:18 Instructions: Essential Hypertension, Hyperkyphosis Activity Restrictions/Additional Instructions: Tylenol every 4 hours as needed for pain. For your blood pressure, increase Norvasc to 10 mg daily. Continue Losartan 100 mg daily and Metoprolol 25 mg daily. Follow-up with your primary care doctor about your back pain andl blood pressure monitoring. Return the ER as necessary. Prescriptions: No Action metoprolol succinate 50 mg tablet extended release 24 hr 25 mg PO DAILY RF: 0 amlodipine 5 mg tablet 10 mg PO DAILY RF: 0 lorazepam 0.5 mg tablet 0.5 mg PO BID PRNRF: 0 buspirone 5 mg tablet See Rx Instructions .ROUTE .COMPLEX Qty: 30 RF: 1 losartan 50 mg Tablet 100 mg PO DAILY RF: 0 furosemide 20 mg tablet 20 mg PO DAILY RF: 0 omega 5-evw-bgy-fish oil [Fish Oil] 1,000 mg (120 mg-180 mg) Capsule 1 cap PO TID RF: 0 Hyaluronic Acid (chond-collgn) 40-80-400 mg Capsule 2 cap PO DAILY RF: 0 simvastatin 10 mg tablet 10 mg PO .COMPLEX RF: 0 Referrals: Day Lezama DO [Primary Care Provider] -
[2020-01-03 14:26] LABS: Add Manual Diff / Slide Review NO; Basophils Absolute Auto 100 /uL (0-100); Basophils Percent Auto 0.9 % (0-2); Eosinophils Absolute Auto 100 /uL (0-450); Eosinophils Percent Auto 0.9 % (2-4); Hematocrit 34.5 % (36-46); Hemoglobin 11.4 g/dL (12.0-16.0); Lymphocytes Absolute Auto 1400 /uL (1100-4500); Lymphocytes Percent Auto 20.4 % (25-40); Mean Corpuscular Hemoglobin 30.4 PG (26-34); Monocytes Absolute Auto 500 /uL (0-900); Monocytes Percent Auto 7.6 % (3-14); Neutrophils Absolute Auto 4800 /uL (1500-7000); Neutrophils Percent Auto 70.2 % (50-75); Platelet Count 219 X10^3/uL (150-400); Red Blood Cell Count 3.75 X10^6/uL (4.0-5.2); Red Cell Distribution Width 13.7 % (11.6-14.8); White Blood Cell Count 6.8 X10^3/uL (4.5-11.0)
[2020-01-03] MEDS: SODIUM CHLORIDE 0.9% 1,000 ML 150 ML IV (14:29)
[2020-01-03 14:40] LABS: Alanine Aminotransferase 13 IU/L (<35); Albumin 4.2 g/dL (3.5-5.0); Albumin Globulin Ratio 1.4 (1.0-2.8); Alkaline Phosphatase 59 U/L (38-126); Aspartate Aminotransferase 28 IU/L (14-36); BUN Creatinine Ratio 18.3 (6-22); Bilirubin Total 0.4 mg/dL (0.2-1.3); Blood Urea Nitrogen 23 mg/dL (7-17); Calcium 9.7 mg/dL (8.4-10.2); Carbon Dioxide 31 mmol/L (22-32); Chloride 103 mmol/L (98-107); Creatine Kinase 84 U/L (30-135); Globulin 3.1 g/dL (1.7-4.1); Glucose 93 mg/dL (80-110); HEMOLYSIS < 15 (0-50); Lipase 195 U/L (23-300); Potassium 4.1 mmol/L (3.4-5.1); Sodium 138 mmol/L (137-145); Total Protein 7.3 g/dL (6.3-8.2)
[2020-01-03 14:51] LABS: Troponin I 0.034 ng/mL (0.01-0.034)
[2020-01-03] MEDS: LORazepam 0.5 MG TABLET PO (15:06)
== END 2020-01-03 17:18 | disposition home or self-care (01) ==
PROVIDERS: Emergency Provider Emergency Medicine; Family Provider Nurse Practitioner Gerontology; PCP Family Medicine
DX: I10 Essential (primary) hypertension (principal); M54.6 Pain in thoracic spine; I35.0 Nonrheumatic aortic (valve) stenosis; R07.9 Chest pain, unspecified
CPT/HCPCS: 36415; 71045; 80053; 81003; 82550; 83690; 84484; 85025; 93005; 96360; 99284

== ENCOUNTER 2020-02-27 17:59 | Emergency (ER) | payer MEDICARE, SELFPAY ==
[2019-11-12 12:38] VITALS: BMI 31.6
[2020-02-27 18:13] VITALS: BP 181/78; PULSE 88; RESP 16; TEMP 36.8; O2SAT 94; BMI 30.3
--- NOTE | 2020-02-27 18:22 | ED.EXTPRO ---
HPI - Extremity Problem General Chief complaint: Extremity Problem,Nontraumatic Stated complaint: thinks she has a DVT Time Seen by Provider: 02/27/20 18:03 Source: patient Mode of arrival: Family Vehicle Limitations: no limitations History of Present Illness HPI Narrative: 79-year-old female. Has a history of DVT and pulmonary embolism. Also has a history of hypertension. She is not currently on anticoagulation. She states that she stop the anticoagulation after her ?blood ?told her that she could stop that. This was several weeks/months ago. She is unsure exactly when she stop this medicine. She has been taking her other medications as directed. She states she has had a workup for why she had a DVT however she does not know of any specific reason what has caused these. She is here today for swelling in her left lower extremity. Unsure exactly when the lower extremity started to swell but it has been within the past day or 2. No chest pain. No recent surgeries. No recent long immobilizations. Was told to come into the emergency department for evaluation by her doctor. Related Data Home Medications Medication Instructions Recorded Confirmed losartan 100 mg PO DAILY 10/06/19 02/24/20 furosemide 20 mg PO DAILY 10/22/19 02/24/20 hyalur ac-chond sul-colg II-AA 2 cap PO DAILY 10/22/19 02/24/20 [Hyaluronic Acid (chond-collgn)] omega 3-ith-vcd-fish oil [Fish Oil] 1 cap PO TID 10/22/19 02/24/20 lorazepam 0.5 mg tablet 0.5 mg PO BID PRN tab 12/30/19 02/24/20 simvastatin 10 mg tablet 10 mg PO .COMPLEX 12/30/19 02/24/20 amlodipine 5 mg tablet 5 mg PO DAILY tab 02/24/20 02/24/20 coenzyme Q10 75 mg capsule 75 mg PO DAILY 02/24/20 02/24/20 metoprolol succinate 25 mg 25 mg PO DAILY 02/24/20 02/24/20 tablet,extended release 24 hr Previous Rx's Medication Instructions Recorded rivaroxaban [Xarelto] 15 mg PO BID 21 Days #42 tab 02/27/20 Allergies Allergy/AdvReac Type Severity Reaction Status Date / Time amlodipine Allergy Verified 01/18/20 14:16 buspirone AdvReac Intermediate jittery, Verified 01/18/20 14:16 insomnia escitalopram AdvReac Intermediate incontinence, Verified 01/18/20 14:16 insomnia sertraline AdvReac Intermediate incontinence, Verified 01/18/20 14:16 insomnia Review of Systems Constitutional Constitutional: Denies chills and Denies fever(s) Cardiovascular Cardiovascular: Denies chest pain, Denies rapid heart rate and Denies dyspnea Respiratory Respiratory: Denies cough and Denies dyspnea Gastrointestinal Gastrointestinal: Denies abdominal pain, Denies nausea and Denies vomiting Genitourinary Genitourinary: Denies dysuria Genitourinary: Denies dysuria Musculoskeletal Comments: Left leg swelling Integumentary/Breasts Skin/Breast: Denies lesions and Denies rash Neurologic Neurologic: Denies behavioral changes Psychiatric Psychiatric: Denies behavioral changes Hematologic/Lymphatic Comments: Not currently on anticoagulation Allergic/Immunologic Allergic/Immunologic: Denies urticaria Patient History Medical History Frozen shoulder (Acute) Hyperlipidemia (Acute) Hypertension (Acute) Major depressive disorder, recurrent episode (Acute) Surgical History No history of previous surgery (Acute) Family History Father Stroke Mother Medical history unknown Brother Sudden Social History household members: none Smoking Status: Former smoker alcohol intake: current Smoking Status: Former smoker alcohol intake frequency: holidays/special occasions only Substance Use Type: does not use Exam Initial Vital Signs Initial Vital Signs: Vital Signs Temperature 98.3 F 02/27/20 18:13 Pulse Rate 88 02/27/20 18:13 Respiratory Rate 16 02/27/20 18:13 Blood Pressure 181/78 H 02/27/20 18:13 Pulse Oximetry 94 02/27/20 18:13 Const General: cooperative and comfortable Limitations: mental status not altered HENAL Head: normal to inspection and normocephalic Resp Effort & Inspection: normal respiratory effort Auscultation: clear to auscultation bilaterally Cardio Rate: regular rate Rhythm: regular rhythm Heart Sounds: murmur GI Inspection: non-distended Skin Lesions: no lesions Rashes: no rashes Neuro General: patient alert, patient awake and patient oriented x3 Extrem General: edema (Left lower extremity nonpitting) Psych Appearance: grossly normal and well kempt Scores GCS Randa coma scale eye opening: Spontaneous [place] coma scale verbal response: Orientated [place] coma scale motor response: Obey commands Randa coma scale total score: 15 Wells' Criteria for DVT Active Cancer (Treatment within 6 months): No Bedridden recently >3 days or major surgery within 4 weeks: No Calf Swelling >3cm compared to other leg: No Collateral (nonvericose) superficial veins present: No Entire leg swollen: No Localized tenderness along the deep vein system: Yes Pitting edema, confined to symtomatic leg: No Paralysis, paresis, or recent plaster immobilization of ext: No Previously documented DVT: Yes Alternative dx to DVT as likely or more likely: No Wells' criteria for DVT: 2 Course Orders Ordered: ED Orders 02/27/20 18:22 periph venous low extrem lt Stat 02/27/20 19:02 Basic Metabolic Panel Stat Complete Blood Count AUTO DIFF Stat NT-proBNP (BNP-Adult 18+) Stat Partial Thromboplastin Time Stat Prothrombin Time INR Stat Troponin I Stat 02/27/20 19:43 CT angio chest PE protocol Stat EKG-12 Lead Stat Discontinued Medications Sodium Chloride (Normal Saline 0.9%) 1,000 mls @ 1,000 mls/hr IV BOLUS ONE Stop: 02/27/20 20:41 Last Infusion: 02/27/20 21:00 Dose: 0 mls/hr Documented by: Admin: 02/27/20 19:55 Dose: 1,000 mls/hr Documented by: CONSUELO Rivaroxaban (Xarelto) 15 mg PO NOW ONE Stop: 02/27/20 19:39 Last Admin: 02/27/20 19:45 Dose: 15 mg Documented by: CONSUELO Vital Signs Vital signs: Vital Signs - 8 hr 02/27/20 18:13 02/27/20 21:55 Temperature 98.3 F Pulse Rate 88 84 Respiratory Rate 16 18 Blood Pressure 181/78 H 185/74 H Pulse Oximetry 94 98 MDM - Extremity (Nontraumatic) Lab Data Attestation: I reviewed the patient's lab results. Result diagrams: 02/27/20 19:02 02/27/20 19:02 Labs: Lab Results 02/27/20 02/27/20 02/27/20 Range/Units 19:02 19:02 19:02 WBC 9.9 (4.5-11.0) X10^3/uL RBC 3.44 L (4.0-5.2) X10^6/uL Hgb 10.8 L (12.0-16.0) g/dL Hct 31.9 L (36-46) % MCV 92.6 (80-100) fL MCH 31.5 (26-34) PG MCHC 34.0 (30-36) % RDW 13.2 (11.6-14.8) % Plt Count 179 (150-400) X10^3/uL Neut % (Auto) 73.2 (50-75) % Lymph % (Auto) 16.6 L (25-40) % [place] % (Auto) 7.5 (3-14) % Eos % (Auto) 1.8 L (2-4) % Baso % (Auto) 0.9 (0-2) % Neut # (Auto) 7300 H (1373-6310) /uL Lymph # (Auto) 1600 (6737-1944) /uL [place] # (Auto) 700 (0-900) /uL Eos # (Auto) 200 (0-450) /uL Baso # (Auto) 100 (0-100) /uL PT 12.1 (10.1-12.7) SECONDS INR 1.0 (0.9-1.3) APTT 28 D (26.4-36.2) SECONDS Sodium 135 L (137-145) mmol/L Potassium 4.5 (3.4-5.1) mmol/L Chloride 100 (98-107) mmol/L Carbon Dioxide 30 (22-32) mmol/L BUN 27 H (7-17) mg/dL Creatinine 1.26 H (0.52-1.04) mg/dL Estimated GFR 41.0 L (>60) mL/min BUN/Creatinine Ratio 21.4 (6-22) Glucose 100 (80-110) mg/dL Calcium 8.8 (8.4-10.2) mg/dL Troponin I (0.01-0.034) ng/mL NT-Pro-B Natriuret Pep (<450) pg/mL 02/27/20 02/27/20 Range/Units 19:02 19:02 WBC (4.5-11.0) X10^3/uL RBC (4.0-5.2) X10^6/uL Hgb (12.0-16.0) g/dL Hct (36-46) % MCV (80-100) fL MCH (26-34) PG MCHC (30-36) % RDW (11.6-14.8) % Plt Count (150-400) X10^3/uL Neut % (Auto) (50-75) % Lymph % (Auto) (25-40) % [place] % (Auto) (3-14) % Eos % (Auto) (2-4) % Baso % (Auto) (0-2) % Neut # (Auto) (4596-4259) /uL Lymph # (Auto) (4947-3763) /uL [place] # (Auto) (0-900) /uL Eos # (Auto) (0-450) /uL Baso # (Auto) (0-100) /uL PT (10.1-12.7) SECONDS INR (0.9-1.3) APTT (26.4-36.2) SECONDS Sodium (137-145) mmol/L Potassium (3.4-5.1) mmol/L Chloride (98-107) mmol/L Carbon Dioxide (22-32) mmol/L BUN (7-17) mg/dL Creatinine (0.52-1.04) mg/dL Estimated GFR (>60) mL/min BUN/Creatinine Ratio (6-22) Glucose (80-110) mg/dL Calcium (8.4-10.2) mg/dL Troponin I 0.039 H (0.01-0.034) ng/mL NT-Pro-B Natriuret Pep 548 H (<450) pg/mL Imaging Data US - DVT: Radiologist's Impression: [address] [address] Ultrasound Report Signed Patient: Yuki Wright JMR#: [id number] : 1Acct:[id number] Age/Sex: 79 / FDate of Service: 02/27/20 Loc: ED Accession Number: [id number] Procedure: US periph venous low extrem lt Ordering Provider: Milad Al D.O. PROCEDURE: [facility] VENOUS LOW EXTREM LT INDICATIONS: EDEMA TECHNIQUE: Real-time imaging, as well as color and pulse Doppler interrogation, were performed of the lower extremity deep veins from the inguinal ligament to the popliteal fossa. COMPARISON: None. FINDINGS: The common femoral vein demonstrates normal compressibility and phasic flow as does the profundus femoral vein. The superficial femoral vein is noncompressible throughout its imaged extent. The popliteal vein is also noncompressible. No detectable venous flow. IMPRESSION: 1. Acute DVT of the left popliteal and superficial femoral veins. 2. Findings called to the emergency room at 19:55 hours. Dictated by: Yvonne Goodman M.D. on 02/27/2020 at 19:51 Approved by: Yvonne Goodman M.D. on 02/27/2020 at 19:55 CT scan - chest: Radiologist's Impression: [place] [address] CT Scan Report Signed Patient: Yuki Wright R#: [id number] : 1Acct:[id number] Age/Sex: 79 / FDate of Service: 02/27/20 Loc: ED Accession Number: [id number] Procedure: CT angio chest PE protocol Ordering Provider: Milad Al D.O. PROCEDURE: CT ANGIO CHEST PE PROTOCOL INDICATIONS: has DVT and SOB hx of PE TECHNIQUE: After the administration of intravenous contrast, 2 mm thick sections acquired from the pulmonary apices to the posterior costophrenic angles. 3-dimensional maximum intensity projection (MIP) coronal and sagittal reformats were then acquired through the thorax. For radiation dose reduction, the following was used: automated exposure control, adjustment of mA and/or kV according to patient size. COMPARISON: [facility], CT, CT ANGIO CHEST PE PROTOCOL, 05/28/2019, 16:43. FINDINGS: Image quality: Excellent. Pulmonary arteries: Pulmonary arteries are moderately prominent. There is acute pulmonary embolus in the segmental branch, superior segment right lower lobe extending into the branch vessels. No definite other pulmonary embolus. Overall, the clot burden is small. Lungs and pleura: Lungs demonstrate mild gravitational changes at both posterior lung bases, and a course ovoid calcification in the posteromedial left costophrenic sulcus. No dense consolidations. No pleural effusions or pneumothorax. Central and peripheral airways are patent. Mediastinum: Heart size is normal, without ventricular septal bowing. There is a trace anterior pericardial effusion. Mildly prominent subcarinal and bilateral hilar lymph nodes, similar compared to the prior study. Thoracic aorta is normal in caliber and enhancement. Esophagus is normal in caliber, with a small hiatal hernia. Bones and chest wall: No suspicious bony lesions. Ribs and thoracic spine appear intact throughout. Thyroid gland is normal . No axillary or supraclavicular adenopathy. Abdomen: Visualized abdomen demonstrates mild left renal cortical upper pole scarring, mild hepatomegaly, and moderate coronary artery calcification. IMPRESSION: 1. Small superior segment right lower lobe pulmonary embolus extending into the branch arteries. 2. No evidence of right heart strain. 3. Chronic bilateral hilar and subcarinal borderline adenopathy. 4. Left lower lobe granuloma. 5. Small hiatal hernia. Dictated by: Yvonne Goodman M.D. on 02/27/2020 at 21:18 Approved by: Yvonne Goodman M.D. on 02/27/2020 at 21:27 ECG Data Attestation EKG: I personally reviewed and interpreted this ECG as follows: Prior ECG tracings: not available for review Interpretation: Sinus rhythm Ventricular rate is 76 Normal axis Normal QRS Normal QTC No ST T wave changes MDM Narrative Medical decision making narrative: Initially patient stated that she did not have any chest pain or shortness of breath however upon further questioning she stated that she started to have some shortness of breath after she arrived here to the emergency department when she sat down in the [facility]. States that she was not having any shortness of breath while she was walking. No chest pain. Review of her notes so that she has had a pulmonary embolism in the past. This is the end of last year. Again not currently on anticoagulation. The left lower extremity DVT ultrasound was positive for an acute DVT. She was given a dose of Xarelto. Patient ambulated around the emergency department and again stated that she was slightly short of breath when she sat down but recovered quickly. She was not hypoxic. Had an oxygen saturation above 93%. Because of her prior history and her complaint of shortness of breath CT scan was ordered. It does show a right-sided pulmonary embolus. This was where her pulmonary embolism was in the past but according to the this appears to be new. I did inform the patient of all of this. She tolerated her Xarelto. Was not tachycardic. Was not tachypneic. No EKG changes. No signs of right heart strain. 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 She was given strict return precautions. She expressed understanding and agreement. Discharge Plan Departure Patient Disposition: Home Clinical Impression: Pulmonary embolism Qualifiers: Pulmonary embolism type: unspecified Chronicity: acute Acute cor pulmonale presence: unspecified Qualified Code(s): I26.99 - Other pulmonary embolism without acute cor pulmonale Deep vein thrombosis of lower extremity Qualifiers: Affected thrombotic vein of extremity: unspecified vein of extremity Chronicity: acute Laterality: left Qualified Code(s): I82.402 - Acute embolism and thrombosis of unspecified deep veins of left lower extremity Discharge Date/Time: 02/27/20 21:57 Instructions: Deep Vein Thrombosis, DI for Pulmonary Embolism Activity Restrictions/Additional Instructions: Start taking the Xarelto as directed. Tomorrow contact your primary provider for a follow-up. Return to the emergency department for any new or worsening symptoms Prescriptions: New Xarelto 15 mg tablet 15 mg PO BID 21 Days Qty: 42 RF: 0 No Action metoprolol succinate 25 mg tablet extended release 24 hr 25 mg PO DAILY RF: 0 Ultra CoQ10 75 mg capsule 75 mg PO DAILY RF: 0 lorazepam 0.5 mg tablet 0.5 mg PO BID PRNRF: 0 amlodipine 5 mg tablet 5 mg PO DAILY RF: 0 losartan 50 mg Tablet 100 mg PO DAILY RF: 0 furosemide 20 mg tablet 20 mg PO DAILY RF: 0 omega 3-bzj-rck-fish oil [Fish Oil] 1,000 mg (120 mg-180 mg) Capsule 1 cap PO TID RF: 0 Hyaluronic Acid (chond-collgn) 40-80-400 mg Capsule 2 cap PO DAILY RF: 0 simvastatin 10 mg tablet 10 mg PO .COMPLEX RF: 0 Referrals: Day Lezama DO [Primary Care Provider] -
[2020-02-27 19:10] LABS: Add Manual Diff / Slide Review NO; Basophils Absolute Auto 100 /uL (0-100); Basophils Percent Auto 0.9 % (0-2); Eosinophils Absolute Auto 200 /uL (0-450); Eosinophils Percent Auto 1.8 % (2-4); Hematocrit 31.9 % (36-46); Hemoglobin 10.8 g/dL (12.0-16.0); Lymphocytes Absolute Auto 1600 /uL (1100-4500); Lymphocytes Percent Auto 16.6 % (25-40); Mean Corpuscular Hemoglobin 31.5 PG (26-34); Mean Corpuscular Volume 92.6 fL (80-100); Monocytes Absolute Auto 700 /uL (0-900); Monocytes Percent Auto 7.5 % (3-14); Neutrophils Absolute Auto 7300 /uL (1500-7000); Neutrophils Percent Auto 73.2 % (50-75); Platelet Count 179 X10^3/uL (150-400); Red Blood Cell Count 3.44 X10^6/uL (4.0-5.2); Red Cell Distribution Width 13.2 % (11.6-14.8); White Blood Cell Count 9.9 X10^3/uL (4.5-11.0)
[2020-02-27 19:20] LABS: Prothrombin Time 12.1 SECONDS (10.1-12.7)
[2020-02-27 19:23] LABS: BUN Creatinine Ratio 21.4 (6-22); Blood Urea Nitrogen 27 mg/dL (7-17); Calcium 8.8 mg/dL (8.4-10.2); Carbon Dioxide 30 mmol/L (22-32); Chloride 100 mmol/L (98-107); Glucose 100 mg/dL (80-110); HEMOLYSIS < 15 (0-50); PTT Partial Thromboplastin Tim 28 SECONDS (26.4-36.2); Potassium 4.5 mmol/L (3.4-5.1); Sodium 135 mmol/L (137-145)
--- NOTE | 2020-02-27 19:43 | DI.CT.S_ITS ---
PROCEDURE: CT ANGIO CHEST PE PROTOCOL INDICATIONS: has DVT and SOB hx of PE TECHNIQUE: After the administration of intravenous contrast, 2 mm thick sections acquired from the pulmonary apices to the posterior costophrenic angles. 3-dimensional maximum intensity projection (MIP) coronal and sagittal reformats were then acquired through the thorax. For radiation dose reduction, the following was used: automated exposure control, adjustment of mA and/or kV according to patient size. COMPARISON: [facility], CT, CT ANGIO CHEST PE PROTOCOL, 05/28/2019, 16:43. FINDINGS: Image quality: Excellent. Pulmonary arteries: Pulmonary arteries are moderately prominent. There is acute pulmonary embolus in the segmental branch, superior segment right lower lobe extending into the branch vessels. No definite other pulmonary embolus. Overall, the clot burden is small. Lungs and pleura: Lungs demonstrate mild gravitational changes at both posterior lung bases, and a course ovoid calcification in the posteromedial left costophrenic sulcus. No dense consolidations. No pleural effusions or pneumothorax. Central and peripheral airways are patent. Mediastinum: Heart size is normal, without ventricular septal bowing. There is a trace anterior pericardial effusion. Mildly prominent subcarinal and bilateral hilar lymph nodes, similar compared to the prior study. Thoracic aorta is normal in caliber and enhancement. Esophagus is normal in caliber, with a small hiatal hernia. Bones and chest wall: No suspicious bony lesions. Ribs and thoracic spine appear intact throughout. Thyroid gland is normal . No axillary or supraclavicular adenopathy. Abdomen: Visualized abdomen demonstrates mild left renal cortical upper pole scarring, mild hepatomegaly, and moderate coronary artery calcification. IMPRESSION: 1. Small superior segment right lower lobe pulmonary embolus extending into the branch arteries. 2. No evidence of right heart strain. 3. Chronic bilateral hilar and subcarinal borderline adenopathy. 4. Left lower lobe granuloma. 5. Small hiatal hernia. Dictated by: Yvonne Goodman M.D. on 02/27/2020 at 21:18 Approved by: Yvonne Goodman M.D. on 02/27/2020 at 21:27
[2020-02-27] MEDS: RIVAROXABAN 10 MG TABLET 15 MG PO (19:45)
[2020-02-27] MEDS: SODIUM CHLORIDE 0.9% 1,000 ML 1000 ML IV (19:55)
[2020-02-27 20:11] LABS: NT-proBNP (BNP-Adult 18+) 548 pg/mL (<450)
[2020-02-27 20:13] LABS: Troponin I 0.039 ng/mL (0.01-0.034)
[2020-02-27 21:55] VITALS: BP 185/74; PULSE 84; RESP 18; O2SAT 98
== END 2020-02-27 21:57 | disposition home or self-care (01) ==
PROVIDERS: Emergency Provider Emergency Medicine; Family Provider Nurse Practitioner Gerontology; PCP Family Medicine
DX: I26.99 Other pulmonary embolism without acute cor pulmonale (principal); I82.402 Acute embolism and thrombosis of unspecified deep veins of left lower extremity; R06.02 Shortness of breath
CPT/HCPCS: 36415; 71275; 80048; 83880; 84484; 85025; 85610; 85730; 93005; 93010; 93041; 93971; 96360; 99284; Q9967

== ENCOUNTER 2020-04-07 04:38 | Emergency (ER) | payer MEDICARE, SELFPAY ==
[2019-11-12 12:38] VITALS: BMI 31.6
[2020-04-07 05:01] VITALS: BP 174/72; PULSE 72; RESP 18; TEMP 36.5; O2SAT 99; BMI 29.0
--- NOTE | 2020-04-07 05:10 | PC.NURSE ---
Pt has a generalized tremor after starting to take Venlafaxine for the first time.
[2020-04-07 05:15] LABS: Add Manual Diff / Slide Review NO; Basophils Absolute Auto 100 /uL (0-100); Eosinophils Absolute Auto 200 /uL (0-450); Eosinophils Percent Auto 1.9 % (2-4); Hematocrit 32.3 % (36-46); Hemoglobin 10.8 g/dL (12.0-16.0); Lymphocytes Absolute Auto 1500 /uL (1100-4500); Mean Corpuscular HGB Conc 33.6 % (30-36); Mean Corpuscular Hemoglobin 30.9 PG (26-34); Monocytes Absolute Auto 700 /uL (0-900); Monocytes Percent Auto 9.1 % (3-14); Neutrophils Absolute Auto 5400 /uL (1500-7000); Platelet Count 233 X10^3/uL (150-400); Red Blood Cell Count 3.51 X10^6/uL (4.0-5.2); Red Cell Distribution Width 13.1 % (11.6-14.8); White Blood Cell Count 7.8 X10^3/uL (4.5-11.0)
[2020-04-07 05:21] LABS: Alanine Aminotransferase 16 IU/L (<35); Albumin 3.8 g/dL (3.5-5.0); Albumin Globulin Ratio 1.1 (1.0-2.8); Alkaline Phosphatase 63 U/L (38-126); Aspartate Aminotransferase 27 IU/L (14-36); Bilirubin Total 0.6 mg/dL (0.2-1.3); Blood Urea Nitrogen 18 mg/dL (7-17); Calcium 8.9 mg/dL (8.4-10.2); Carbon Dioxide 26 mmol/L (22-32); Chloride 103 mmol/L (98-107); Globulin 3.4 g/dL (1.7-4.1); Glucose 99 mg/dL (80-110); HEMOLYSIS < 15 (0-50); Sodium 135 mmol/L (137-145); Total Protein 7.2 g/dL (6.3-8.2)
[2020-04-07 05:26] VITALS: PULSE 67; O2SAT 96
--- NOTE | 2020-04-07 05:29 | ED_ITS ---
HPI - Neuro Symptoms/Deficit General Chief Complaint: Neuro Symptoms/Deficit Stated Complaint: Shaking Time Seen by Provider: 04/07/20 04:40 Source: patient and EMS Mode of arrival: Ambulatory Limitations: no limitations History of Present Illness HPI Narrative: 79F nonsmoker former smoker with a history of anxiety, hyperlipidemia and HTN presents by EMS for evaluation full body shaking that is been present for the past day or so. She states that it was rather intense yesterday and seems to gradually be getting better but it is certainly not gone. She denies any fever or chills. She denies runny nose, sore throat, cough or chest pain. She denies any dysuria, frequency or urgency. She did start venlafaxine on Friday afternoon at about 4 or 5:00 p.m. and symptoms seemed to start a few hours after that. She made attempt to reach out to her primary care provider yesterday but did not receive a call back. She began getting nervous over the course of the evening, that something could potentially be wrong hence her decision to call EMS. She denies any other symptoms and strongly states that her symptoms are largely improved. Onset (ago): hour(s) On Anticoagulants: Yes Treatments Prior to Arrival: none Related Data Home Medications Medication Instructions Recorded Confirmed losartan 100 mg PO DAILY 10/06/19 04/05/20 furosemide 20 mg PO DAILY 10/22/19 04/05/20 hyalur ac-chond sul-colg II-AA 2 cap PO DAILY 10/22/19 04/05/20 [Hyaluronic Acid (chond-collgn)] omega 6-pst-dkp-fish oil [Fish Oil] 1 cap PO TID 10/22/19 04/05/20 lorazepam 0.5 mg tablet 0.5 mg PO BID PRN tab 12/30/19 04/05/20 simvastatin 10 mg tablet 10 mg PO .COMPLEX 12/30/19 04/05/20 amlodipine 5 mg tablet 5 mg PO DAILY tab 02/24/20 04/05/20 coenzyme Q10 75 mg capsule 75 mg PO DAILY 02/24/20 04/05/20 metoprolol succinate 25 mg 25 mg PO DAILY 02/24/20 04/05/20 tablet,extended release 24 hr Allergies Allergy/AdvReac Type Severity Reaction Status Date / Time amlodipine Allergy Verified 04/07/20 05:01 venlafaxine AdvReac Severe severe Verified 04/07/20 13:08 tremors buspirone AdvReac Intermediate jittery, Verified 04/07/20 05:01 insomnia escitalopram AdvReac Intermediate incontinence, Verified 04/07/20 05:01 insomnia sertraline AdvReac Intermediate incontinence, Verified 04/07/20 05:01 insomnia Review of Systems Constitutional Constitutional: Denies chills, Denies fatigue, Denies fever(s), Denies frequent falls, Denies lethargy and Denies weakness Eyes Eyes: Denies change in vision, Denies eye discharge, Denies irritation and Denies loss of vision ENT Ears, Nose, Mouth, and Throat: Denies change in voice, Denies dizziness, Denies neck pain, Denies sore throat and Denies throat swelling Cardiovascular Cardiovascular: Denies chest pain, Denies irregular heart rhythm, Denies lightheadedness, Denies palpitations, Denies dyspnea, Denies dyspnea on exertion and Denies orthopnea Respiratory Respiratory: Denies cough, Denies dyspnea, Denies dyspnea on exertion and Denies wheezing Gastrointestinal Gastrointestinal: Denies abdominal pain, Denies change in bowel habits, Denies diarrhea, Denies nausea and Denies vomiting Musculoskeletal Musculoskeletal: Denies neck pain and Denies numbness Integumentary/Breasts Skin/Breast: Denies pruritus, Denies erythema, Denies rash and Denies wounds Neurologic Neurologic: Denies behavioral changes, Denies confusion, Denies dizziness, Denies frequent falls, Denies loss of vision, Denies numbness, Reports tremor(s) and Denies weakness Psychiatric Psychiatric: Denies anxiety, Denies behavioral changes, Denies confusion, Denies depression, Denies homicidal ideation and Denies suicidal ideation Endocrine Endocrine: Denies fatigue, Denies flushing and Denies palpitations Hematologic/Lymphatic Hematologic/Lymphatic: Denies easy bruising Allergic/Immunologic Allergic/Immunologic: Denies urticaria, Denies throat swelling and Denies wheezing Patient History Medical History (Updated 04/07/20 @ 05:38 by Israel Garcia DO) Frozen shoulder (Acute) Hyperlipidemia (Acute) Hypertension (Acute) Major depressive disorder, recurrent episode (Acute) Surgical History No history of previous surgery (Acute) Family History Father Stroke Mother Medical history unknown Brother Sudden Social History household members: none Smoking Status: Former smoker alcohol intake: current Smoking Status: Former smoker alcohol intake frequency: holidays/special occasions only Substance Use Type: does not use Exam Narrative Exam Narrative: GENERAL: [79] year old patient appears stated age. Well- nourished, well-developed patient, in mild distress. Anxious HEAD: Atraumatic. Normocephalic. EYES: Pupils equal round and reactive. Extraocular motions intact. No scleral icterus. No injection or drainage. ENT: Nose without bleeding, purulent drainage. Throat without erythema, tons illar hypertrophy or exudate. Airway patent. NECK: Trachea midline. Non tender CARDIOVASCULAR: Regular rate and rhythm without murmurs, gallops, or rubs. RESPIRATORY: Clear to auscultation. Breath sounds equal bilaterally. No wheezes, rales, or rhonchi. GASTROINTESTINAL: Abdomen soft, non-tender, nondistended. EXTREMITIES: No edema or joint tenderness. BACK: Nontender without deformity or crepitance. No flank tenderness. NEURO: AOx3. Mild resting tremor. No other neurologic symptoms SKIN: No rash or erythema of visible areas Initial Vital Signs Initial Vital Signs: Vital Signs Temperature 97.7 F 04/07/20 05:01 Pulse Rate 72 04/07/20 05:01 Respiratory Rate 18 04/07/20 05:01 Blood Pressure 174/72 H 04/07/20 05:01 Pulse Oximetry 99 04/07/20 05:01 Course Course Course Narrative: Multiple etiologies considered but most likely a consequence, and unintended affect of her venlafaxine. We discussed whether not she would want small dose of a benzodiazepine to help take the edge off but she refused. Basic labs ordered to rule out electrolyte abnormality or possibility of infection. Orders Ordered: ED Orders 04/07/20 04:55 Complete Blood Count AUTO DIFF Stat Comprehensive Metabolic Panel Stat Vital Signs Vital signs: Vital Signs - 8 hr 04/07/20 05:01 Temperature 97.7 F Pulse Rate 72 Respiratory Rate 18 Blood Pressure 174/72 H Pulse Oximetry 99 MDM - Neuro Symptoms/Deficit Lab Data Result diagrams: 04/07/20 04:55 04/07/20 04:55 Labs: Lab Results 04/07/20 04/07/20 Range/Units 04:55 04:55 WBC 7.8 (4.5-11.0) X10^3/uL RBC 3.51 L (4.0-5.2) X10^6/uL Hgb 10.8 L (12.0-16.0) g/dL Hct 32.3 L (36-46) % MCV 92.0 (80-100) fL MCH 30.9 (26-34) PG MCHC 33.6 (30-36) % RDW 13.1 (11.6-14.8) % Plt Count 233 (150-400) X10^3/uL Neut % (Auto) 69.0 (50-75) % Lymph % (Auto) 19.0 L (25-40) % [place] % (Auto) 9.1 (3-14) % Eos % (Auto) 1.9 L (2-4) % Baso % (Auto) 1.0 (0-2) % Neut # (Auto) 5400 (0818-6388) /uL Lymph # (Auto) 1500 (3513-3097) /uL [place] # (Auto) 700 (0-900) /uL Eos # (Auto) 200 (0-450) /uL Baso # (Auto) 100 (0-100) /uL Sodium 135 L (137-145) mmol/L Potassium 4.0 (3.4-5.1) mmol/L Chloride 103 (98-107) mmol/L Carbon Dioxide 26 (22-32) mmol/L BUN 18 H (7-17) mg/dL Creatinine 1.06 H (0.52-1.04) mg/dL Estimated GFR 50.0 L (>60) mL/min BUN/Creatinine Ratio 17.0 (6-22) Glucose 99 (80-110) mg/dL Calcium 8.9 (8.4-10.2) mg/dL Total Bilirubin 0.6 (0.2-1.3) mg/dL AST 27 (14-36) IU/L ALT 16 (<35) IU/L Alkaline Phosphatase 63 (38-126) U/L Total Protein 7.2 (6.3-8.2) g/dL Albumin 3.8 (3.5-5.0) g/dL Globulin 3.4 (1.7-4.1) g/dL Albumin/Globulin Ratio 1.1 (1.0-2.8) Urine Dip Bedside Urine Glucose Negative Bedside Urine Bilirubin - Negative Bedside Urine Ketone - Negative Urine Specific [place] 1.01 Bedside Urine Occult Blood - Negative Bedside Urine pH 6.0 Bedside Urine Protein - Negative Bedside Urine Urobilinogen - Negative Bedside Urine Nitrite - Negative Bedside Urine Leukocytes - Negative Esterase Discharge Plan Departure Patient Disposition: Home Clinical Impression: Tremor Medication reaction Qualifiers: Encounter type: initial encounter Qualified Code(s): T50.905A - Adverse effect of unspecified drugs, medicaments and biological substances, initial encounter Discharge Date/Time: 04/07/20 06:03 Activity Restrictions/Additional Instructions: *You have been diagnosed with [tremor, likely a consequence of your venlafaxine. Otherwise your exam and labs are very reassuring.] *What to do: *DO NOT TAKE ANYMORE Venlafaxine. Otherswise, take medications as directed *Follow up with your primary care provider in 2-3 days, call for an appointment. Let them know you were seen in the Emergency Department and that we ask that you be seen in follow up *Return to ER if you should have any new, worsening or concerning symptoms, such as [fever greater than 101 F, chest pain, shortness of breath, vomiting, or other bothersome symptoms] Prescriptions: No Action metoprolol succinate 25 mg tablet extended release 24 hr 25 mg PO DAILY RF: 0 Ultra CoQ10 75 mg capsule 75 mg PO DAILY RF: 0 lorazepam 0.5 mg tablet 0.5 mg PO BID PRNRF: 0 amlodipine 5 mg tablet 5 mg PO DAILY RF: 0 losartan 50 mg Tablet 100 mg PO DAILY RF: 0 furosemide 20 mg tablet 20 mg PO DAILY RF: 0 omega 6-kds-xxd-fish oil [Fish Oil] 1,000 mg (120 mg-180 mg) Capsule 1 cap PO TID RF: 0 Hyaluronic Acid (chond-collgn) 40-80-400 mg Capsule 2 cap PO DAILY RF: 0 simvastatin 10 mg tablet 10 mg PO .COMPLEX RF: 0 Referrals: Day Lezama DO [Primary Care Provider] -
[2020-04-07 06:03] VITALS: BP 151/75; PULSE 74; RESP 18; O2SAT 99
== END 2020-04-07 06:03 | disposition home or self-care (01) ==
PROVIDERS: Emergency Provider Emergency Medicine; Family Provider Nurse Practitioner Gerontology; PCP Family Medicine
DX: R25.1 Tremor, unspecified (principal); T50.905A Adverse effect of unspecified drugs, medicaments and biological substances, initial encounter
CPT/HCPCS: 36415; 80053; 81003; 85025; 99283

== ENCOUNTER → 2020-06-14 12:43 | Outpatient (CLI) | payer MEDICARE, SELFPAY ==
[2019-11-12 12:38] VITALS: BMI 31.6
--- NOTE | 2020-06-14 | DI.MRI.S_ITS ---
PROCEDURE: MR STROKE Pre- and post-contrast brain MRI, non-contrast brain MR angiogram, pre- and postcontrast neck MR angiogram INDICATIONS: Transient visual loss, unspecified eye TECHNIQUE: Brain: Noncontrast axial T1 spin echo, axial T2 fast spin echo, sagittal and axial FLAIR, coronal T2 fast spin echo, axial gradient echo, axial diffusion and ADC through the brain. After the administration of contrast, axial 3D VIBE of the cranial vasculature and brain. Brain MRA: Non-contrast 3-D time of flight MR angiogram, with multiple bjnxwmw-xaqerqlkn-fcqizptenm (MIP) reformats performed. Neck MRA: Axial and sagittal TruFISP through the neck. Coronal dynamic MR angiogram during administration of contrast in the arterial and venous phases, with 3-dimenstional maumocb-ferxuvybv-jjadclotdg (MIP) reformats constructed from subtraction images. COMPARISON: None. FINDINGS: Image quality: Excellent. BRAIN: CSF spaces: Ventricles are normal in size and shape. Basal cisterns are patent. No extra-axial fluid collections. Brain: No intracranial bleeds or mass effects. Brasher-white matter interface is normal. Diffusion weighted images show no acute ischemic insults. Brainstem appears normal. Normal intravascular flow voids are present. No abnormal intracranial enhancement. Age-related volume loss and moderate small vessel ischemic change. Skull and face: Calvarial marrow signal is normal. Orbits appear normal. Sinuses: Bilateral maxillary sinus mucous retention cysts. 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 Intracranial internal carotid arteries are otherwise normal in size and enhancement. The flow within the paired anterior cerebral arteries is normal and symmetric. The flow within the middle cerebral arteries is normal and symmetric. The anterior communicating artery is seen. No stenoses or occlusions. Posterior circulation: The visualized portions of the vertebral arteries demonstrate normal caliber, and join to form a normal appearing basilar artery. The flow within the posterior cerebral arteries is normal and symmetric. No stenoses, occlusions, or aneurysms. NECK MR ANGIOGRAM: Carotids: Great vessels demonstrate a bovine arch anatomy as they arise from the aortic arch. The origins of the common carotid arteries appear patent. The calibers and courses of both common carotid arteries are normal. The bifurcation regions appear normal bilaterally. The internal carotid arteries demonstrate normal course and caliber. Posterior circulation: The origins of the vertebral arteries appear patent. More superior portions of both vertebral arteries demonstrate normal course and caliber, and join to form a normal appearing basilar artery. Miscellaneous: Subclavian arteries appear patent. Pre-contrast images through the neck show no soft tissue abnormalities. IMPRESSION: BRAIN MRI: 1. 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 2. Age-related volume loss and moderate small vessel ischemic change. 3. No evidence acute stroke, hemorrhage, or mass. BRAIN MR ANGIOGRAM: 1. 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 2. No other aneurysms. NECK MR ANGIOGRAM: 1. Bovine arch anatomy. 2. No significant carotid stenotic disease. Comment: Recommend CTA head and neck for further evaluation. If this is a saccular cavernous carotid aneurysm, it may be amenable to percutaneous endovascular treatment. Dictated by: Hardy Renteria M.D. on 06/14/2020 at 14:32 Approved by: Haryd Renteria M.D. on 06/14/2020 at 14:48
== END ==
PROVIDERS: Family Provider Nurse Practitioner Gerontology; PCP Physician Assistant Medical; Referring Provider Internal Medicine; Visit Provider Internal Medicine
DX: H53.129 Transient visual loss, unspecified eye (principal)
CPT/HCPCS: 70548; 70553; A9579

== ENCOUNTER → 2020-06-23 10:14 | Outpatient (CLI) | payer MEDICARE, SELFPAY ==
[2019-11-12 12:38] VITALS: BMI 31.6
--- NOTE | 2020-06-23 10:19 | DI.CT.S_ITS ---
PROCEDURE: CT ANGIO HEAD INDICATIONS: Cerebral aneurysm, nonruptured TECHNIQUE: Precontrast 4.5 mm thick angled axial sections acquired from the foramen magnum to the vertex. After the administration of intravenous contrast, 1 mm thick sections acquired through the [place] of [place]. Postcontrast 4.5 mm thick sections then re-acquired from the foramen magnum to the vertex. 10 mm thick edvnwcq-nqsiaybvy-pbjqyengym (MIP) reformats were acquired of the central intracranial vasculature. For radiation dose reduction, the following was used: automated exposure control, adjustment of mA and/or kV according to patient size. COMPARISON: [facility], , MR STROKE, 06/14/2020, 13:42. FINDINGS: Image quality: Excellent. Anterior circulation: There is visualization of the previously seen saccular aneurysm projected medially along the distal cavernous left internal carotid artery, which measures 7 x 8 x 8 mm on this study. Atherosclerotic calcification and irregularity can be seen elsewhere within the intracranial internal carotid arteries, with approximately 50% narrowing seen on each side. The flow within the paired anterior cerebral arteries is normal and symmetric. The flow within the middle cerebral arteries is normal and symmetric. The anterior communicating artery is seen. No aneurysms are seen. Posterior circulation: Visualized portions of the vertebral arteries demonstrate normal caliber, and join to form a normal appearing basilar artery. Flow within the posterior cerebral arteries is normal and symmetric. No aneurysms are seen. CSF spaces: Ventricles are normal in size and shape. Basal cisterns are patent. No extra-axial fluid collections. Brain: No midline shift. No intracranial bleeds or masses. Brasher-white matter interface appears intact. Skull and face: Calvarium and facial bones appear intact, without suspicious lesions. Incidental note is made of hyperostosis frontalis. This is not considered to be pathologic in a woman of this age. Sinuses: Visualized sinuses and mastoids are clear. IMPRESSION: CT confirmation of the previously seen saccular aneurysm along the distal medial aspect of the left cavernous intracranial internal carotid artery. Generalized atherosclerotic calcification and irregularity can be seen of the intracranial internal carotid arteries, with approximately 50% narrowing seen on each side. Dictated by: Lionel Shipamn M.D. on 06/23/2020 at 11:38 Approved by: Lionel Shipman M.D. on 06/23/2020 at 11:41
[2020-06-23 10:45] LABS: Add Manual Diff / Slide Review NO; Basophils Absolute Auto 100 /uL (0-100); Basophils Percent Auto 1.1 % (0-2); Eosinophils Absolute Auto 100 /uL (0-450); Eosinophils Percent Auto 2.1 % (2-4); Hematocrit 33.6 % (36-46); Hemoglobin 11.2 g/dL (12.0-16.0); Lymphocytes Absolute Auto 1600 /uL (1100-4500); Lymphocytes Percent Auto 24.7 % (25-40); Mean Corpuscular HGB Conc 33.2 % (30-36); Mean Corpuscular Hemoglobin 30.2 PG (26-34); Mean Corpuscular Volume 90.9 fL (80-100); Monocytes Absolute Auto 600 /uL (0-900); Monocytes Percent Auto 8.9 % (3-14); Neutrophils Absolute Auto 4000 /uL (1500-7000); Neutrophils Percent Auto 63.2 % (50-75); Platelet Count 196 X10^3/uL (150-400); Red Cell Distribution Width 13.8 % (11.6-14.8); White Blood Cell Count 6.3 X10^3/uL (4.5-11.0)
[2020-06-23 11:02] LABS: C-Reactive Protein Quant < 0.5 mg/dL (<1.0)
[2020-06-23 11:03] LABS: Erythrocyte Sedimentation Rate 31 MM/HR (0-20)
[2020-06-23 11:09] LABS: BUN Creatinine Ratio 23.1 (6-22); Blood Urea Nitrogen 28 mg/dL (7-17); Estimated Glomerular Filt Rate 42.9 mL/min (>60)
== END ==
PROVIDERS: Family Provider Nurse Practitioner Gerontology; PCP Physician Assistant Medical; Referring Provider Internal Medicine; Visit Provider Internal Medicine
DX: I67.1 Cerebral aneurysm, nonruptured (principal); G45.3 Amaurosis fugax; H53.129 Transient visual loss, unspecified eye
CPT/HCPCS: 36415; 70496; 82565; 84520; 85025; 85651; 86140; Q9967

== ENCOUNTER → 2020-07-04 13:18 | Outpatient (CLI) | payer MEDICARE, SELFPAY ==
[2019-11-12 12:38] VITALS: BMI 31.6
--- NOTE | 2020-07-04 | DI.ECHO.S_ITS ---
[facility]---------+ [facility] +---------+ : : [address] : [place] : : : : [id number] : : : : Phone: [phone] +---------+ Echocardiogram Report + + :Name: CONCETTA JIMÉNEZ Study Date: 07/04/2020 Height: 67 in : :[facility] ReadingLocation: Weight: 180 lb : : Gender: Female BSA: 1.9 m2 : :: 1940 Age: 79 yrs BP: 149/50 mmHg: :Reason For Study: TRANSIENT VISUAL LOSS : :Ordering Physician: GIA, : :DUSTIN Performed By: Isha Mesa : :Referring: DUSTIN NIELSEN : + + Interpretation Summary Limited echo with agitated saline study. Normal sinus rhythm. Normal LV size, wall thickness, wall motion and LV systolic function. EF is 60-65%. Aortic valve leaflets are moderately thickened and calcified but open well. There is no PFO based on agitated saline study. Compared to prior study 10/23/2019 no changes have occurred. Procedure: A two-dimensional transthoracic echocardiogram with color flow and Doppler was performed in limited views only to assess Bubble Study. Left Ventricle: The left ventricle is normal in size and wall thickness. Left ventricular ejection fraction is estimated to be 65 +/- 5%. Right Ventricle: The right ventricle is normal in size and function. Atria: The left atrium is moderately dilated. Right atrial size is normal. Doppler interrogation and injection of saline echo contrast shows no evidence for an interatrial shunt. Great Vessels: The IVC is of normal diameter and collapses greater than 50% with a sniff. This suggests a low right atrial pressure of 3 mm Hg. Pericardium/ Pleura There is no pericardial effusion. There is no pleural effusion. MMode/2D Measurements & Calculations LVIDd: 4.5 cm LA A2 area: 24.5 cm2 LVIDs: 2.7 cm LA A4 area: 24.7 cm2 FS: 39.4 % LA length (vol): 6.0 cm IVSd: 0.90 cm LA vol: 85.5 ml LVPWd: 0.90 cm LA vol index: 44.2 ml/m2 LV medina. diameter/BSA (cm/m^2): 2.3 LV sys. diameter/BSA (cm/m^2): 1.4 RA long axis: 5.5 cm RVD1 (basal): 3.7 cm RA area: 18.3 cm2 TAPSE: 2.4 cm RA vol: 51.4 ml RA : 26.6 ml/m2 IVC diam: 1.7 cm Electronically signed by: Amalia Singh M.D. on Reading Physician:07/04/2020 11:10 PM
== END ==
PROVIDERS: Family Provider Nurse Practitioner Gerontology; PCP Physician Assistant Medical; Referring Provider Internal Medicine; Visit Provider Internal Medicine
DX: H53.129 Transient visual loss, unspecified eye (principal); Z86.718 Personal history of other venous thrombosis and embolism
CPT/HCPCS: 93307

== ENCOUNTER → 2020-08-12 13:39 | Outpatient (CLI) | payer MEDICARE, SELFPAY ==
[2020-08-10 14:13] VITALS: BMI 31.6
[2020-08-12 15:42] LABS: COVID19 -Nasal RAPID Negative (Negative)
== END ==
PROVIDERS: Family Provider Nurse Practitioner Gerontology; PCP Physician Assistant Medical; Visit Provider Student in an Organized Health Care Education/Training Program
DX: Z01.812 Encounter for preprocedural laboratory examination (principal); Z20.822 Contact with and (suspected) exposure to COVID-19
CPT/HCPCS: 87635; C9803

== ENCOUNTER → 2020-09-18 14:36 | Outpatient (CLI) | payer MEDICARE, SELFPAY ==
[2020-08-10 14:13] VITALS: BMI 31.6
--- NOTE | 2020-09-18 14:38 | DI.ECHO.S_ITS ---
[facility]---------+ [facility] +---------+ : : [address] : [place] : : : : [id number] : : : : Phone: [phone] +---------+ Echocardiogram Report + + :Name: CONCETTA JIMÉNEZ Study Date: 09/18/2020 Height: 67 in : :[facility] ReadingLocation: Weight: 180 lb : : Gender: Female BSA: 1.9 m2 : :: 1940 Age: 79 yrs BP: 150/68 mmHg: :Reason For Study: AORTIC STENOSIS : :Ordering Physician: TEODORO, : :DICK Performed By: Isha Mesa : :Referring: DICK GALLAGHER : + + Interpretation Summary 1) Normal left ventricular size, thickness, wall motion, and systolic function (EF 65-70%). 2) The right ventricle is normal in size and function. 3) There is moderate aortic stenosis (valve area 1.1cm2, mean gradient 33mmHg, severity ratio 0.36). 4) There is moderate aortic regurgitation. 5) Compared to the Echo done 10/23/2019, aortic stenosis has progressed but remains in the moderate severity range. Procedure: A two-dimensional transthoracic echocardiogram with color flow and Doppler was performed. The study quality was technically adequate. Comparison is made with the echocardiogram of 10/23/2019. The patient was in sinus bradycardia with heart rates between 59-66 bpm during the exam. Left Ventricle: The left ventricle is normal in size and wall thickness. The ejection fraction is estimated to be 65-70%. Diastolic parameters suggest a pseudonormalization pattern, consistent with probable elevated filling pressures. Right Ventricle: The right ventricle is normal in size and function. Atria: The left atrium is moderately dilated. Right atrial size is normal. There is no Doppler evidence for an interatrial shunt. Mitral Valve: The mitral valve leaflets appear mildly thickened, but open well. There is mild mitral annular calcification. There is mild to moderate mitral regurgitation. Aortic Valve: The aortic valve is trileaflet. The aortic valve is moderately calcified. There is moderate aortic stenosis. The peak aortic velocity is 3.7 m/sec. The peak aortic velocity on the previous exam was 3.3 m/sec. The aortic valve mean gradient is 33 mmHg. The calculated aortic valve area is 1.1 cm2. There is moderate aortic regurgitation. Tricuspid Valve: The tricuspid valve is normal in structure and function. There is mild tricuspid regurgitation. Pulmonary artery pressures cannot be estimated because of the lack of a measurable TR jet velocity but the IVC suggests a CVP of around 36 mmHg. Pulmonic Valve: The pulmonic valve leaflets are thin and pliable; valve motion is normal. There is trace pulmonic regurgitation. Great Vessels: The aortic root is normal size. The ascending aorta is at the upper limits of normal in size. The IVC is of normal diameter and collapses greater than 50% with a sniff. This suggests a low right atrial pressure of 3 mm Hg. Pericardium/ Pleura There is no pericardial effusion. There is no pleural effusion. MMode/2D Measurements & Calculations LVIDd: 4.3 cm LVOT diam: 2.0 cm LVIDs: 2.7 cm Ao root diam: 3.0 cm FS: 36.6 % asc Aorta Diam: 3.4 cm EPSS: 0.41 cm IVSd: 0.96 cm LVPWd: 0.94 cm LV medina. diameter/BSA (cm/m^2): 2.2 LV sys. diameter/BSA (cm/m^2): 1.4 LA A2 area: 27.1 cm2 RA long axis: 5.8 cm LA A4 area: 23.0 cm2 RA area: 18.3 cm2 LA length (vol): 6.0 cm RA vol: 49.7 ml LA vol: 87.3 ml RA : 25.7 ml/m2 LA vol index: 45.1 ml/m2 IVC diam: 1.7 cm RVD1 (basal): 2.7 cm TAPSE: 2.2 cm Doppler Measurements & Calculations Ao V2 max: 368.2 cm/sec LVOT Max Valente: 147.4 cm/sec Ao V2 mean: 272.5 cm/sec LV V1 max P.7 mmHg Ao max P.2 mmHg LV V1 VTI: 36.0 cm Ao mean P.7 mmHg MINH(I,D): 1.1 cm2 Ao V2 VTI: 100.0 cm MINH(V,D): 1.2 cm2 sev ratio: 0.36 MINH indexed to BSA (cm^2/m^2): 0.58 AI P1/2t: 374.3 msec AI dec slope: 340.6 cm/sec2 MV E max valente: 103.2 cm/sec TR max valente: 287.8 cm/sec MV A max valente: 87.1 cm/sec TR max P.1 mmHg MV E/A: 1.2 PA V2 max: 113.9 cm/sec Med Peak E' Valente: 7.1 cm/sec PA V2 mean: 78.8 cm/sec E/E' med: 14.5 PA mean P.7 mmHg Lat Peak E' Valente: 6.6 cm/sec PA pr(Accel): 32.8 mmHg E/E' lat: 15.6 E/e' average: 15.1 MV dec time: 0.20 sec SV(LVOT): 111.9 ml Reading Physician:06:50 PM
== END ==
PROVIDERS: Family Provider Nurse Practitioner Gerontology; PCP Physician Assistant Medical; Referring Provider Internal Medicine Cardiovascular Disease; Visit Provider Internal Medicine Cardiovascular Disease
DX: I35.0 Nonrheumatic aortic (valve) stenosis (principal); I35.1 Nonrheumatic aortic (valve) insufficiency
CPT/HCPCS: 93306

== ENCOUNTER → 2021-08-02 15:48 | Outpatient (CLI) | payer MEDICARE, SELFPAY ==
[2020-08-10 14:13] VITALS: BMI 31.6
--- NOTE | 2021-08-02 15:50 | DI.MRI.S_ITS ---
PROCEDURE: MR ANGIO HEAD WO CON INDICATIONS: Left distal ICA aneurysm TECHNIQUE: Noncontrast axial 3-D [id number]-vxsega MR angiogram, with 3-dimensional maximum intensity projection (MIP) reformats of the internal carotid arteries and posterior circulation then performed. COMPARISON: [facility], CT, CT ANGIO HEAD, 06/23/2020, 11:21. [facility], MR, MR STROKE, 06/14/2020, 13:42. FINDINGS: Image quality: Excellent. Anterior circulation: Medially oriented aneurysm arising from the distal cavernous ICA measuring 8 x 10 x 8 mm and is relatively unchanged from prior exam. Otherwise, the intracranial internal carotid arteries demonstrate normal size and intraluminal flow signal. The flow within the paired anterior cerebral arteries is normal and symmetric. The flow within the middle cerebral arteries is normal and symmetric. The anterior communicating artery is seen. No stenoses, occlusions, or aneurysms. Posterior circulation: Visualized portions of the vertebral arteries demonstrate normal caliber, and join to form a normal appearing basilar artery. The flow within the posterior cerebral arteries is normal and symmetric. No stenoses, occlusions, or aneurysms. IMPRESSION: Stable distal left ICA aneurysm Approved by: Isaac Nino M.D. on 08/02/2021 at 15:56
== END ==
PROVIDERS: Family Provider Nurse Practitioner Gerontology; PCP Physician Assistant Medical; Referring Provider Specialist; Visit Provider Specialist
DX: I67.1 Cerebral aneurysm, nonruptured (principal)
CPT/HCPCS: 70544

== ENCOUNTER → 2021-09-10 09:00 | Outpatient (CLI) | payer MEDICARE, SELFPAY ==
[2020-08-10 14:13] VITALS: BMI 31.6
[2021-09-10 11:29] LABS: Add Manual Diff / Slide Review NO; Basophils Absolute Auto 100 /uL (0-100); Eosinophils Absolute Auto 100 /uL (0-450); Eosinophils Percent Auto 2.5 % (2-4); Hematocrit 31.8 % (36-46); Hemoglobin 10.5 g/dL (12.0-16.0); Lymphocytes Absolute Auto 1500 /uL (1100-4500); Lymphocytes Percent Auto 27.5 % (25-40); Mean Corpuscular HGB Conc 32.9 % (30-36); Mean Corpuscular Hemoglobin 29.8 PG (26-34); Mean Corpuscular Volume 90.6 fL (80-100); Monocytes Absolute Auto 400 /uL (0-900); Monocytes Percent Auto 7.6 % (3-14); Neutrophils Absolute Auto 3400 /uL (1500-7000); Neutrophils Percent Auto 61.4 % (50-75); Platelet Count 178 X10^3/uL (150-400); Red Blood Cell Count 3.51 X10^6/uL (4.0-5.2); Red Cell Distribution Width 13.8 % (11.6-14.8); White Blood Cell Count 5.5 X10^3/uL (4.5-11.0)
[2021-09-10 12:44] LABS: Blood Urea Nitrogen 25 mg/dL (7-17); Calcium 9.4 mg/dL (8.4-10.2); Carbon Dioxide 26 mmol/L (22-32); Chloride 107 mmol/L (98-107); Cholesterol 175 mg/dL (140-199); Estimated Glomerular Filt Rate 36.5 mL/min (>60); Glucose 82 mg/dL (80-110); HDL Cholesterol 52 mg/dL (40-60); LDL Cholesterol Calculated 98 mg/dL (<100); Sodium 138 mmol/L (137-145); Triglycerides 125 mg/dL (35-150)
[2021-09-10 12:48] LABS: HEMOLYSIS 77 (0-50)
== END ==
PROVIDERS: Family Provider Nurse Practitioner Gerontology; PCP Physician Assistant Medical; Referring Provider Internal Medicine Cardiovascular Disease; Visit Provider Internal Medicine Cardiovascular Disease
DX: I10 Essential (primary) hypertension (principal); E78.5 Hyperlipidemia, unspecified
CPT/HCPCS: 36415; 80048; 80061; 85025

== ENCOUNTER → 2021-10-11 08:55 | Outpatient (CLI) | payer MEDICARE, SELFPAY ==
[2020-08-10 14:13] VITALS: BMI 31.6
--- NOTE | 2021-10-11 08:56 | DI.ECHO.S_ITS ---
[facility] +---------+ : : [address] : : : : [place] : : : : [place], : : : : [place] [address] : : : : Phone: [phone] + [facility] Echocardiogram Report + + :Name: CONCETTA JIMÉNEZ Study Date: 10/11/2021 Height: 67 in : :[facility] ReadingLocation: Weight: 180 lb : : Gender: Female BSA: 1.9 m2 : :: 1940 Age: 80 yrs BP: 174/59 mmHg: :Reason For Study: Aortic valve stenosis : :Ordering Physician: TEODORO, : :DICK Performed By: Chao Wade : :Referring: DICK GALLAGHER : + + Interpretation Summary 1) Normal left ventricular size, wall motion, and systolic function (EF 60- 65%). 2) The right ventricle is normal in size and function. 3) There is moderate aortic stenosis (valve area 1.2cm2, mean gradient 40mmHg, severity ratio 0.39). 4) There is moderate aortic regurgitation. 5) Hypertension present during the study (BP 174/59mm Hg). 6) Compared to the Echo done 09/18/2020, no significant change. Procedure: A two-dimensional transthoracic echocardiogram with color flow and Doppler was performed. The study quality was technically adequate. Comparison is made with the echocardiogram of 09/18/2020. Left Ventricle: The left ventricle is normal in size. There is mild concentric left ventricular hypertrophy. Left ventricular systolic function is normal. The ejection fraction is estimated to be 60-65%. There are no focal wall motion abnormalities. Diastolic parameters suggest a pseudonormalization pattern, consistent with probable elevated filling pressures. Right Ventricle: The right ventricle is normal in size and function. Atria: The left atrium is severely dilated. Right atrial size is normal. The interatrial septum grossly appears intact with no obvious evidence for an atrial septal defect. Mitral Valve: There is mild mitral annular calcification. There is mild mitral regurgitation. Aortic Valve: The aortic valve is moderately calcified. There is moderate aortic stenosis. The aortic valve mean gradient is 40 mmHg. The peak aortic velocity is 4 m/sec. The calculated aortic valve area is 1.2 cm2. There is moderate aortic regurgitation. Tricuspid Valve: The tricuspid valve is normal in structure and function. There is mild tricuspid regurgitation. Pulmonary artery pressures cannot be estimated because of the lack of a measurable TR jet velocity. Pulmonic Valve: The pulmonic valve is not well seen, but is grossly normal. There is trace pulmonic regurgitation. Great Vessels: The aortic root is normal size. The IVC is of normal diameter and collapses greater than 50% with a sniff. This suggests a low right atrial pressure of 3 mm Hg. Pericardium/ Pleura There is no pericardial effusion. There is no pleural effusion. MMode/2D Measurements & Calculations LVIDd: 4.8 cm LVOT diam: 2.0 cm LVIDs: 3.3 cm Ao root diam: 2.9 cm IVSd: 1.1 cm asc Aorta Diam: 3.4 cm LVPWd: 1.2 cm LV medina. diameter/BSA (cm/m^2): 2.5 LV sys. diameter/BSA (cm/m^2): 1.7 FS: 31.3 % LA dimension: 3.9 cm RA long axis: 4.8 cm LA A2 area: 28.5 cm2 LA A4 area: 29.5 cm2 LA length (vol): 6.5 cm LA vol: 110.3 ml LA vol index: 57.0 ml/m2 TAPSE_phl: 2.3 cm Doppler Measurements & Calculations Ao V2 max: 397.7 cm/sec LVOT Max Valente: 167.0 cm/sec Ao V2 mean: 303.9 cm/sec LV V1 max P.2 mmHg Ao V2 VTI: 99.1 cm LV V1 VTI: 38.9 cm Ao max P.3 mmHg Ao mean P.2 mmHg MINH(I,D): 1.2 cm2 AI P1/2t: 230.9 msec MINH(V,D): 1.3 cm2 AI dec slope: 611.5 cm/sec2 MINH indexed to BSA (cm^2/m^2): 0.64 sev ratio: 0.39 MV E max valente: 148.0 cm/sec MV dec time: 0.20 sec MV A max valente: 113.0 cm/sec MV E/A: 1.3 Med Peak E' Valente: 6.7 cm/sec E/E' med: 22.2 Lat Peak E' Valente: 7.5 cm/sec E/E' lat: 19.6 E/e' average: 20.9 TR max valente: 309.0 cm/sec SV(LVOT): 122.2 ml TR max P.2 mmHg AV P1/2t-pr_phl: 232.0 msec MV P1/2t-pr_phl: 57.0 msec Reading Physician:10:51 AM
== END ==
PROVIDERS: Family Provider Nurse Practitioner Gerontology; PCP Physician Assistant Medical; Referring Provider Internal Medicine Cardiovascular Disease; Visit Provider Internal Medicine Cardiovascular Disease
DX: I08.3 Combined rheumatic disorders of mitral, aortic and tricuspid valves (principal)
CPT/HCPCS: 93306

== ENCOUNTER 2021-11-08 08:55 | Emergency (ER) | payer MEDICARE, SELFPAY ==
[2020-08-10 14:13] VITALS: BMI 31.6
[2021-11-08] VITALS (56 sets, daily range): BP systolic 124–186; BP diastolic 57–102; PULSE 82–94; RESP 15–46; TEMP 36.5–37.1; O2SAT 89–100; BMI 29.7
--- NOTE | 2021-11-08 09:27 | DI.RAD.S_ITS ---
PROCEDURE: XR CHEST 2V INDICATIONS: SHORTNESS OF BREATH TECHNIQUE: 2 views of the chest were acquired. COMPARISON: [facility], , XR CHEST 1V, 01/03/2020, 14:12. FINDINGS: Surgical changes and devices: None. Lungs and pleura: Lungs are clear. No pleural effusions or pneumothorax. Mediastinum: Mediastinal contours are normal. Heart size is normal. Bones and chest wall: No suspicious bony abnormalities. Soft tissues appear unremarkable. IMPRESSION: No evidence acute pulmonary process. Dictated by: Hardy Renteria M.D. on 11/08/2021 at 9:59 Approved by: Hardy Renteria M.D. on 11/08/2021 at 10:00
--- NOTE | 2021-11-08 09:56 | ED.SOB ---
HPI - SOB/Dyspnea <Montserrat Soliman, - Last Filed: 11/09/21 08:56> General Chief Complaint: Shortness of Breath/Dyspnea Stated Complaint: SOB, trouble walking Time Seen by Provider: 11/08/21 09:55 Source: patient Mode of arrival: Family Vehicle Limitations: no limitations History of Present Illness HPI Narrative: This is an 81-year-old female who presents with increasing dyspnea over the past weeks to months. Patient states she used to be able to walk an hour and has slowly decreased about 15 minutes. Patient also notes she gets pain in her thighs left greater than right when she walks. She states it has been progressive over time. She denies syncope or lightheadedness. No chest pain or pressure. No nausea or vomiting. No sweats. No fevers or chills. No nasal congestion or chest congestion. No new swelling in her extremities. No new issues with bowel movements or urination. She has a known history of aortic stenosis and had an echo on 10/11/2021 which showed an EF of 60% with mild left concentric LVH, no focal wall motion abnormalities, severely dilated left atrium and moderate aortic stenosis. Patient has not had any prior cardiac stents. 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 She states she is good about taking her medication regularly. She did get started a new medication about a month ago for hypertension by her foil cutter she did tolerate it well was stopped she does not know the name and they increased her amlodipine from 10-20 mg for her hypertension which has improved. Denies surgeries besides cataracts, no cardiac stents. Remote tobacco 20 years ago, no alcohol or illicit. JUNAID Everett is her primary care provider, Dr. Gallagher is her foil cutter. Related Data Home Medications Medication Instructions Recorded Confirmed furosemide 20 mg tablet 20 mg PO DAILY 10/22/19 11/08/21 hyalur ac-chond sul-colg II-AA 40 2 cap PO DAILY 10/22/19 04/05/20 mg-80 mg-400 mg capsule (Hyaluronic Acid(with chondroitin-collagenII)) omega 9-evc-gzz-fish oil 1,000 mg 1 cap PO TID 10/22/19 11/08/21 (120 mg-180 mg) capsule (Fish Oil) lorazepam 0.5 mg tablet 0.5 mg PO BID PRN tab 12/30/19 04/05/20 simvastatin 10 mg tablet 10 mg PO .COMPLEX 12/30/19 11/08/21 coenzyme Q10 75 mg capsule (Ultra 75 mg PO DAILY 02/24/20 11/08/21 CoQ10) metoprolol succinate 25 mg 25 mg PO DAILY 02/24/20 04/05/20 tablet,extended release 24 hr amlodipine 10 mg tablet 10 mg PO DAILY 11/08/21 11/08/21 losartan 100 mg tablet 100 mg PO DAILY 11/08/21 11/08/21 omeprazole 40 mg capsule,delayed 40 mg PO DAILY 11/08/21 11/08/21 release rivaroxaban 20 mg tablet (Xarelto) 20 mg PO DAILY 11/08/21 11/08/21 Allergies Allergy/AdvReac Type Severity Reaction Status Date / Time venlafaxine AdvReac Severe severe Verified 04/07/20 13:08 tremors buspirone AdvReac Intermediate jittery, Verified 04/07/20 05:01 insomnia escitalopram AdvReac Intermediate incontinence, Verified 04/07/20 05:01 insomnia sertraline AdvReac Intermediate incontinence, Verified 04/07/20 05:01 insomnia Review of Systems <Montserrat Soliman DO - Last Filed: 11/09/21 08:56> Review of Systems ROS Unobtainable: All systems reviewed & are unremarkable except as noted in HPI and below Patient History <Montserrat Soliman DO - Last Filed: 11/09/21 08:56> Medical History (Updated 11/08/21 @ 11:44 by Montserrat Soliman DO) Frozen shoulder Hyperlipidemia Hypertension Major depressive disorder, recurrent episode Surgical History No history of previous surgery Family History Father Stroke Mother Medical history unknown Brother Sudden Social History household members: none Smoking Status: Former smoker alcohol intake: current Smoking Status: Former smoker alcohol intake frequency: holidays/special occasions only Substance Use Type: does not use Exam <Montserrat C Mank, DO - Last Filed: 11/09/21 08:56> Narrative Exam Narrative: GENERAL: Alert and oriented x three, female in mild distress. HEENT: Head normocephalic, atraumatic, EOMI, pupils reactive, face symmetric, moist mucous membranes NECK: Supple, full range of motion CARDIOVASCULAR: Regular rate and rhythm with 3/6 systolic ejection murmur heard best at the right upper chest, rubs or gallops. No JVD. No swelling bilateral lower extremities. RESPIRATORY: Breath sounds equal bilaterally, no wheezes rales or rhonchi. ABDOMEN: Soft, nontender. Normoactive bowel sounds all 4 quadrants. No guarding or rebound, rigidity, no mass : No CVA tenderness EXTREMITIES: Normal range of motion. Neurovascularly intact. No warmth, erythema or swelling appreciated. Normal sensation to touch. NEUROLOGICAL: Cranial nerves II through XII grossly intact. Moving all extremities SKIN: Warm, dry, no petechiae, no rashes or lesions. Initial Vital Signs Initial Vital Signs: Vital Signs Pulse Rate 86 11/08/21 09:20 Respiratory Rate 15 11/08/21 09:20 Pulse Oximetry 98 11/08/21 09:20 <Milad Al, DO - Last Filed: 11/08/21 23:47> Initial Vital Signs Initial Vital Signs: Vital Signs Pulse Rate 86 11/08/21 09:20 Respiratory Rate 15 11/08/21 09:20 Pulse Oximetry 98 11/08/21 09:20 Course <Montserrat Soliman, DO - Last Filed: 11/09/21 08:56> Orders Ordered: Discontinued Medications Pantoprazole Sodium (Pantoprazole 40 Mg Vial) 80 mg IV NOW ONE Stop: 11/08/21 18:44 Last Admin: 11/08/21 19:12 Dose: 80 mg Documented by: ATAYLOR Consultations Consultation #1: Dr. Francis, oncology/hematology-recommends low-molecular weight heparin drip, then transferred to Lovenox initially seen outpatient. Long-term patient will likely be a candidate for Coumadin would not recommend other [place]. He try to switch patient over to the low molecular weight heparin, Lovenox followed by Coumadin preferably over IVC filter initially. Time: 11:42 Consultation #2: Dr. Dickson, hospitalist. Feels patient would be most appropriate a larger facility where IVC filter can be placed if needed as patient does have recent GI bleeding with a hemoglobin that was 10.5 in August and is now 5.5 today. Vital Signs Vital signs: Vital Signs - 8 hr 11/09/21 01:00 Pulse Rate 87 Respiratory Rate 19 Blood Pressure 168/69 H Pulse Oximetry 93 <Milad Al DO - Last Filed: 11/08/21 23:47> Orders Ordered: Discontinued Medications Pantoprazole Sodium (Pantoprazole 40 Mg Vial) 80 mg IV NOW ONE Stop: 11/08/21 18:44 Last Admin: 11/08/21 19:12 Dose: 80 mg Documented by: ATAYLOR Vital Signs Vital signs: Vital Signs - 8 hr 11/09/21 01:00 Pulse Rate 87 Respiratory Rate 19 Blood Pressure 168/69 H Pulse Oximetry 93 MDM - SOB/Dyspnea <Montserrat Soliman DO - Last Filed: 11/09/21 08:56> Lab Data Result diagrams: 11/08/21 18:29 11/08/21 Unknown Labs: Lab Results 11/08/21 11/08/21 11/08/21 Range/Units 10:15 10:20 11:11 WBC 5.5 (4.5-11.0) X10^3/uL RBC 1.86 L (4.0-5.2) X10^6/uL Hgb 5.5 L* (12.0-16.0) g/dL Hct 16.5 L* (36-46) % MCV 88.7 (80-100) fL MCH 29.6 (26-34) PG MCHC 33.4 (30-36) % RDW 13.9 (11.6-14.8) % Plt Count 200 (150-400) X10^3/uL Neut % (Auto) 69.8 (50-75) % Lymph % (Auto) 21.0 L (25-40) % Wilson % (Auto) 7.7 (3-14) % Eos % (Auto) 0.7 L (2-4) % Baso % (Auto) 0.8 (0-2) % Neut # (Auto) 3800 (8228-4841) /uL Lymph # (Auto) 1200 (8171-4338) /uL Wilson # (Auto) 400 (0-900) /uL Eos # (Auto) 0 (0-450) /uL Baso # (Auto) 0 (0-100) /uL Sodium (137-145) mmol/L Potassium (3.4-5.1) mmol/L Chloride (98-107) mmol/L Carbon Dioxide (22-32) mmol/L BUN (7-17) mg/dL Creatinine (0.52-1.04) mg/dL Estimated GFR (>60) mL/min BUN/Creatinine Ratio (6-22) Glucose (80-110) mg/dL Lactate (0.7-2.1) mmol/L Calcium (8.4-10.2) mg/dL Total Bilirubin (0.2-1.3) mg/dL AST (14-36) IU/L ALT (<35) IU/L Alkaline Phosphatase (38-126) U/L Total Creatine Kinase 43 (30-135) U/L CK-MB (CK-2) TNP CK-MB (CK-2) Rel Index TNP Troponin I 0.077 H (0.01-0.034) ng/mL NT-Pro-B Natriuret Pep 559 H (<450) pg/mL Total Protein (6.3-8.2) g/dL Albumin (3.5-5.0) g/dL Globulin (1.7-4.1) g/dL Albumin/Globulin Ratio (1.0-2.8) SARS-CoV-2 (PCR) Negative (Negative) Blood Type Antibody Screen Crossmatch 11/08/21 11/08/21 11/08/21 Range/Units 11:11 13:08 18:29 WBC (4.5-11.0) X10^3/uL RBC (4.0-5.2) X10^6/uL Hgb 8.5 L (12.0-16.0) g/dL Hct 25.1 L (36-46) % MCV (80-100) fL MCH (26-34) PG MCHC (30-36) % RDW (11.6-14.8) % Plt Count (150-400) X10^3/uL Neut % (Auto) (50-75) % Lymph % (Auto) (25-40) % Wilson % (Auto) (3-14) % Eos % (Auto) (2-4) % Baso % (Auto) (0-2) % Neut # (Auto) (9378-4900) /uL Lymph # (Auto) (7775-3068) /uL Wilson # (Auto) (0-900) /uL Eos # (Auto) (0-450) /uL Baso # (Auto) (0-100) /uL Sodium (137-145) mmol/L Potassium (3.4-5.1) mmol/L Chloride (98-107) mmol/L Carbon Dioxide (22-32) mmol/L BUN (7-17) mg/dL Creatinine (0.52-1.04) mg/dL Estimated GFR (>60) mL/min BUN/Creatinine Ratio (6-22) Glucose (80-110) mg/dL Lactate (0.7-2.1) mmol/L Calcium (8.4-10.2) mg/dL Total Bilirubin (0.2-1.3) mg/dL AST (14-36) IU/L ALT (<35) IU/L Alkaline Phosphatase (38-126) U/L Total Creatine Kinase (30-135) U/L CK-MB (CK-2) CK-MB (CK-2) Rel Index Troponin I 0.061 H (0.01-0.034) ng/mL NT-Pro-B Natriuret Pep (<450) pg/mL Total Protein (6.3-8.2) g/dL Albumin (3.5-5.0) g/dL Globulin (1.7-4.1) g/dL Albumin/Globulin Ratio (1.0-2.8) SARS-CoV-2 (PCR) (Negative) Blood Type O Positive Antibody Screen Negative Crossmatch See Detail 11/08/21 11/08/21 Range/Units Unknown Unknown WBC (4.5-11.0) X10^3/uL RBC (4.0-5.2) X10^6/uL Hgb (12.0-16.0) g/dL Hct (36-46) % MCV (80-100) fL MCH (26-34) PG MCHC (30-36) % RDW (11.6-14.8) % Plt Count (150-400) X10^3/uL Neut % (Auto) (50-75) % Lymph % (Auto) (25-40) % Wilson % (Auto) (3-14) % Eos % (Auto) (2-4) % Baso % (Auto) (0-2) % Neut # (Auto) (4280-3242) /uL Lymph # (Auto) (2840-5471) /uL Wilson # (Auto) (0-900) /uL Eos # (Auto) (0-450) /uL Baso # (Auto) (0-100) /uL Sodium 140 (137-145) mmol/L Potassium 4.6 (3.4-5.1) mmol/L Chloride 108 H (98-107) mmol/L Carbon Dioxide 26 (22-32) mmol/L BUN 30 H (7-17) mg/dL Creatinine 1.45 H (0.52-1.04) mg/dL Estimated GFR 36 L (>60) mL/min BUN/Creatinine Ratio 20.7 (6-22) Glucose 103 (80-110) mg/dL Lactate 0.8 (0.7-2.1) mmol/L Calcium 8.6 (8.4-10.2) mg/dL Total Bilirubin 0.2 (0.2-1.3) mg/dL AST 25 (14-36) IU/L ALT 16 (<35) IU/L Alkaline Phosphatase 51 (38-126) U/L Total Creatine Kinase (30-135) U/L CK-MB (CK-2) CK-MB (CK-2) Rel Index Troponin I (0.01-0.034) ng/mL NT-Pro-B Natriuret Pep (<450) pg/mL Total Protein 6.7 (6.3-8.2) g/dL Albumin 3.6 (3.5-5.0) g/dL Globulin 3.1 (1.7-4.1) g/dL Albumin/Globulin Ratio 1.2 (1.0-2.8) SARS-CoV-2 (PCR) (Negative) Blood Type Antibody Screen Crossmatch Point of Care Testing Stool Occult Blood Positive Imaging Data Chest x-ray: Radiologist's Impression: [address] [address] XRay Report Signed Patient: Yuki Wright MR#: [id number] : 1940 Acct:[id number] Age/Sex: 81 / F Date of Service: 11/08/21 Loc: ED Accession Number: [id number] ?? Procedure: XR chest 2V Ordering Provider: Montserrat Soliman D.O. PROCEDURE:? XR CHEST 2V ? INDICATIONS:? SHORTNESS OF BREATH ? TECHNIQUE:? 2 views of the chest were acquired.? ? COMPARISON:? [facility], CR, XR CHEST 1V, 01/03/2020, 14:12. ? FINDINGS:? ? Surgical changes and devices:? None.? ? Lungs and pleura:? Lungs are clear.? No pleural effusions or pneumothorax.? ? Mediastinum:? Mediastinal contours are normal.? Heart size is normal.? ? Bones and chest wall:? No suspicious bony abnormalities.? Soft tissues appear unremarkable.? ? IMPRESSION:? No evidence acute pulmonary process. ? ? ? Dictated by: Hardy Renteria M.D. on 11/08/2021 at 9:59 ? ? Approved by: Hardy Renteria M.D. on 11/08/2021 at 10:00?? US - DVT: Radiologist's Impression: Launch?[place] [address] Ultrasound Report Signed Patient: Yuki Wright MR#: [id number] : 1940 Acct:[id number] Age/Sex: 81 / F Date of Service: 11/08/21 Loc: ED Accession Number: [id number] ?? Procedure: US periph venous low extrem bi Ordering Provider: Montserrat Soliman D.O. PROCEDURE:? US PERIPH VENOUS LOW EXTREM BI ? INDICATIONS:? leg pain, prior dvts ? TECHNIQUE:? Real-time imaging, as well as color and pulse Doppler interrogation, were performed of the deep veins of both legs from the inguinal ligament to the popliteal fossa.? ? COMPARISON:? None. ? FINDINGS:? ? Right: The common femoral, femoral and popliteal veins are normally compressible, and free of intraluminal thrombus.? Color and pulse Doppler demonstrate normal phasic intravascular flow.? There is normal augmentation response to distal compression maneuver.? There is probable chronic occlusive clot in the profundus, with recanalization. ? Left:? The proximal portion of the superficial femoral vein (the deep vein of the thigh) has occlusive thrombus.? The distal portion of the SFV has partially occlusive thrombus.? Color and pulse Doppler demonstrate normal phasic intravascular flow.? There is normal augmentation response to distal compression maneuver.? ? ? IMPRESSION:? ? 1. Findings are suggestive of acute DVT involving the left superficial femoral vein (the deep vein of the thigh) ? 2. 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 ? ? Dictated by: Hardy Renteria M.D. on 11/08/2021 at 11:15 ? ? Approved by: Hardy Renteria M.D. on 11/08/2021 at 11:20?? CT scan - chest: Radiologist's Impression: Launch?Image [address] [address] [address] Scan Report Signed Patient: Yuki Wright MR#: [id number] : 1940 Acct:[id number] Age/Sex: 81 / F Date of Service: 11/08/21 Loc: ED Accession Number: [id number] ?? Procedure: CT angio chest PE protocol Ordering Provider: Montserrat Soliman D.O. PROCEDURE:? CT ANGIO CHEST PE PROTOCOL ? INDICATIONS:? sob, dvt, anemia ? TECHNIQUE:? After the administration of intravenous contrast, 2 mm thick sections acquired from the pulmonary apices to the posterior costophrenic angles.? 3-dimensional maximum intensity projection (MIP) coronal and sagittal reformats were then acquired through the thorax.? For radiation dose reduction, the following was used:? automated exposure control, adjustment of mA and/or kV according to patient size.? ? COMPARISON:? [facility], CT, CT ANGIO CHEST PE PROTOCOL, 05/28/2019, 16:43.? [facility], CR, XR CHEST 2V, 11/08/2021, 9:19.? [facility], US, US PERIPH VENOUS LOW EXTREM BI, 11/08/2021, 10:35.? [facility], CT, CT ANGIO CHEST PE PROTOCOL, 02/27/2020, 19:45. ? FINDINGS:? Image quality:? Excellent.? ? Pulmonary arteries:? Pulmonary arteries are normal in size, and demonstrate no intraluminal filling defects to suggest central pulmonary embolism.? ? Lungs and pleura:? Trace pleural effusions are present bilaterally.? Bibasilar atelectasis.? Mild emphysema.? Small lung nodules are present. ? Nodule 1:? 3 mm; right upper lobe; series 5, image 79; solid; unchanged. Nodule 2:? 3 mm; left lower lobe; series 5, image 201; solid; unchanged.? ? No pneumothorax.? Central and peripheral airways are patent.? ? Mediastinum:? Heart size is mildly increased.? No pericardial effusion.? There is mild coronary artery calcification.? Mild mediastinal or hilar adenopathy.? There is a 1.5 x 1.8 cm subcarinal lymph node, stable.? A 1.1 cm right hilar lymph node is unchanged.? Thoracic aorta is normal in caliber and enhancement.? Esophagus is normal in caliber.? Small hiatal hernia.? ? Bones and chest wall:? No suspicious bony lesions.? Ribs and thoracic spine appear intact throughout.? Kyphosis and moderate levoscoliosis.? Degenerative changes in thoracic and upper lumbar spine.? Thyroid gland is normal.? No axillary or supraclavicular adenopathy. ?There is a 1.9 cm nodular density in the lateral aspect of the left breast, unchanged. ? Abdomen:? Visualized upper abdominal solid organs appear normal in the early arterial phase of enhancement.? ? IMPRESSION:? ? 1. No evidence for pulmonary embolism. 2. Mild cardiomegaly. 3. Trace pleural effusions bilaterally. 4. Small lung nodules are present bilaterally, unchanged in size since the last exam.? Please see enclosed follow-up recommendation. 5. Mild mediastinal and hilar lymphadenopathy, nonspecific. 6. A 1.9 cm nodular density in the lateral aspect of the left breast, unchanged.? Please correlate with findings on mammography.? ? ? Fleischner Society criteria for SOLID lung nodule followup.? Nodule size (mm)Low-risk patientHigh-risk patient?4No follow-up neededFollow-up at 12 mo; if no change, no further follow-up>[id number] CT at 12 mo; if no change, no further follow-up needed.Initial follow-up CT at 6-12 mo, then 18-24 mo if no change.? >6-8Initial follow-up CT at 6-12 mo, then 18-24 mo if no change. Initial follow-up CT at 3-6 mo, then 9-12 mo and 24 mo if no change.? >8Follow-up CT at 3, 9, 24 mo.? Or PET and/or biopsy.Same as for low-risk pts.? Dictated by: Ephraim Leach M.D. on 11/08/2021 at 12:15 ? ? Approved by: Ephraim Leach M.D. on 11/08/2021 at 12:37?? ECG Data Attestation: I personally reviewed and interpreted this ECG as follows: Interpretation: Junctional rhythm rate 83 QRS 86 and QTC of 406. P waves are not appreciated with every QRS. Patient has prior EKG from 02/27/2020 which was sinus rhythm but no acute ST changes appreciated otherwise. MDM Narrative Medical decision making narrative: This is an 81-year-old female with progressive dyspnea who presents today stating it has just been worsening. Patient has known aortic stenosis which is described as moderate a month ago with mild left concentric LVH, no focal wall motion or maladies any severely dilated left atrium which but may be contributing she recently had a medication change with had her amlodipine increased. Patient had chest x-ray, EKG and labs obtained patient is a hemoglobin of 5.5, she is positive on stool occult. EKG does not show acute dynamic changes. Troponin is indeterminate but I suspect this is more demand ischemia. She has been having cramping in her legs ultrasound was obtained shows possible new acute thrombus as well as some old thrombus with recanalization. Patient is COVID negative. Discussed with hematology/oncology they recommend low molecular weight heparin drip initially, transitioning to Lovenox and ultimately likely Coumadin. Their preference would be to avoid an IVC filter initially and they do not recommend other DOACs as patient is likely going to be resistant to these as well. Spoke with our hospitalist, repeat troponin is trending down words, patient is receiving 2 units currently. They would ask that we transferred outside facility as patient will likely need IVC filter and they feel quite uncomfortable managing this patient here. Called multiple facilities with no bed availability. [facility] regional hotline was contacted. Patient is signed out to Dr. Al while attempting to find placement. Patient has been stable in the department. Have not initiated anticoagulation at this point while awaiting discussion. Patient's hemoglobin improved after PRBCs. Dr Al: Received turn over. Patient's history and physical had labs up to this point. Her H&H has improved after her to the units of transfused packed red blood cells. She was given Protonix. Patient has been stable. I did discuss the case with Dr. Alberts with Internal Medicine at [facility] who accepts the patient in transfer. Patient is stable for transport. <Milad Al, DO - Last Filed: 11/08/21 23:47> Lab Data Labs: Lab Results 11/08/21 11/08/21 11/08/21 Range/Units 10:15 10:20 11:11 WBC 5.5 (4.5-11.0) X10^3/uL RBC 1.86 L (4.0-5.2) X10^6/uL Hgb 5.5 L* (12.0-16.0) g/dL Hct 16.5 L* (36-46) % MCV 88.7 (80-100) fL MCH 29.6 (26-34) PG MCHC 33.4 (30-36) % RDW 13.9 (11.6-14.8) % Plt Count 200 (150-400) X10^3/uL Neut % (Auto) 69.8 (50-75) % Lymph % (Auto) 21.0 L (25-40) % Wilson % (Auto) 7.7 (3-14) % Eos % (Auto) 0.7 L (2-4) % Baso % (Auto) 0.8 (0-2) % Neut # (Auto) 3800 (0694-1402) /uL Lymph # (Auto) 1200 (0762-7861) /uL Wilson # (Auto) 400 (0-900) /uL Eos # (Auto) 0 (0-450) /uL Baso # (Auto) 0 (0-100) /uL Sodium (137-145) mmol/L Potassium (3.4-5.1) mmol/L Chloride (98-107) mmol/L Carbon Dioxide (22-32) mmol/L BUN (7-17) mg/dL Creatinine (0.52-1.04) mg/dL Estimated GFR (>60) mL/min BUN/Creatinine Ratio (6-22) Glucose (80-110) mg/dL Lactate (0.7-2.1) mmol/L Calcium (8.4-10.2) mg/dL Total Bilirubin (0.2-1.3) mg/dL AST (14-36) IU/L ALT (<35) IU/L Alkaline Phosphatase (38-126) U/L Total Creatine Kinase 43 (30-135) U/L CK-MB (CK-2) TNP CK-MB (CK-2) Rel Index TNP Troponin I 0.077 H (0.01-0.034) ng/mL NT-Pro-B Natriuret Pep 559 H (<450) pg/mL Total Protein (6.3-8.2) g/dL Albumin (3.5-5.0) g/dL Globulin (1.7-4.1) g/dL Albumin/Globulin Ratio (1.0-2.8) SARS-CoV-2 (PCR) Negative (Negative) Blood Type Antibody Screen Crossmatch 11/08/21 11/08/21 11/08/21 Range/Units 11:11 13:08 18:29 WBC (4.5-11.0) X10^3/uL RBC (4.0-5.2) X10^6/uL Hgb 8.5 L (12.0-16.0) g/dL Hct 25.1 L (36-46) % MCV (80-100) fL MCH (26-34) PG MCHC (30-36) % RDW (11.6-14.8) % Plt Count (150-400) X10^3/uL Neut % (Auto) (50-75) % Lymph % (Auto) (25-40) % Wilson % (Auto) (3-14) % Eos % (Auto) (2-4) % Baso % (Auto) (0-2) % Neut # (Auto) (6423-1113) /uL Lymph # (Auto) (7033-5796) /uL Wilson # (Auto) (0-900) /uL Eos # (Auto) (0-450) /uL Baso # (Auto) (0-100) /uL Sodium (137-145) mmol/L Potassium (3.4-5.1) mmol/L Chloride (98-107) mmol/L Carbon Dioxide (22-32) mmol/L BUN (7-17) mg/dL Creatinine (0.52-1.04) mg/dL Estimated GFR (>60) mL/min BUN/Creatinine Ratio (6-22) Glucose (80-110) mg/dL Lactate (0.7-2.1) mmol/L Calcium (8.4-10.2) mg/dL Total Bilirubin (0.2-1.3) mg/dL AST (14-36) IU/L ALT (<35) IU/L Alkaline Phosphatase (38-126) U/L Total Creatine Kinase (30-135) U/L CK-MB (CK-2) CK-MB (CK-2) Rel Index Troponin I 0.061 H (0.01-0.034) ng/mL NT-Pro-B Natriuret Pep (<450) pg/mL Total Protein (6.3-8.2) g/dL Albumin (3.5-5.0) g/dL Globulin (1.7-4.1) g/dL Albumin/Globulin Ratio (1.0-2.8) SARS-CoV-2 (PCR) (Negative) Blood Type O Positive Antibody Screen Negative Crossmatch See Detail 11/08/21 11/08/21 Range/Units Unknown Unknown WBC (4.5-11.0) X10^3/uL RBC (4.0-5.2) X10^6/uL Hgb (12.0-16.0) g/dL Hct (36-46) % MCV (80-100) fL MCH (26-34) PG MCHC (30-36) % RDW (11.6-14.8) % Plt Count (150-400) X10^3/uL Neut % (Auto) (50-75) % Lymph % (Auto) (25-40) % Wilson % (Auto) (3-14) % Eos % (Auto) (2-4) % Baso % (Auto) (0-2) % Neut # (Auto) (2334-3669) /uL Lymph # (Auto) (6255-6417) /uL Wilson # (Auto) (0-900) /uL Eos # (Auto) (0-450) /uL Baso # (Auto) (0-100) /uL Sodium 140 (137-145) mmol/L Potassium 4.6 (3.4-5.1) mmol/L Chloride 108 H (98-107) mmol/L Carbon Dioxide 26 (22-32) mmol/L BUN 30 H (7-17) mg/dL Creatinine 1.45 H (0.52-1.04) mg/dL Estimated GFR 36 L (>60) mL/min BUN/Creatinine Ratio 20.7 (6-22) Glucose 103 (80-110) mg/dL Lactate 0.8 (0.7-2.1) mmol/L Calcium 8.6 (8.4-10.2) mg/dL Total Bilirubin 0.2 (0.2-1.3) mg/dL AST 25 (14-36) IU/L ALT 16 (<35) IU/L Alkaline Phosphatase 51 (38-126) U/L Total Creatine Kinase (30-135) U/L CK-MB (CK-2) CK-MB (CK-2) Rel Index Troponin I (0.01-0.034) ng/mL NT-Pro-B Natriuret Pep (<450) pg/mL Total Protein 6.7 (6.3-8.2) g/dL Albumin 3.6 (3.5-5.0) g/dL Globulin 3.1 (1.7-4.1) g/dL Albumin/Globulin Ratio 1.2 (1.0-2.8) SARS-CoV-2 (PCR) (Negative) Blood Type Antibody Screen Crossmatch Point of Care Testing Stool Occult Blood Positive MDM Narrative Medical decision making narrative: This is an 81-year-old female with progressive dyspnea who presents today stating it has just been worsening. Patient has known aortic stenosis which is described as moderate a month ago with mild left concentric LVH, no focal wall motion or maladies any severely dilated left atrium which but may be contributing she recently had a medication change with had her amlodipine increased. Patient had chest x-ray, EKG and labs obtained patient is a hemoglobin of 5.5, she is positive on stool occult. EKG does not show acute dynamic changes. Troponin is indeterminate but I suspect this is more demand ischemia. She has been having cramping in her legs ultrasound was obtained shows possible new acute thrombus as well as some old thrombus with recanalization. Patient is COVID negative. Discussed with hematology/oncology they recommend low molecular weight heparin drip initially, transitioning to Lovenox and ultimately likely Coumadin. Their preference would be to avoid an IVC filter initially and they do not recommend other DOACs as patient is likely going to be resistant to these as well. Spoke with our hospitalist, repeat troponin is trending down words, patient is receiving 2 units currently. They would ask that we transferred outside facility as patient will likely need IVC filter and they feel quite uncomfortable managing this patient here. Called multiple facilities with no bed availability. [facility] regional hotline was contacted. Patient is signed out to Dr. Al while attempting to find placement. Patient has been stable in the department. Have not initiated anticoagulation at this point while awaiting discussion. Patient's hemoglobin improved after PRBCs. Dr Al: Received turn over. Patient's history and physical had labs up to this point. Her H&H has improved after her to the units of transfused packed red blood cells. She was given Protonix. Patient has been stable. I did discuss the case with Dr. Alberts with Internal Medicine at [facility] who accepts the patient in transfer. Patient is stable for transport. Critical Care Time <Montserrat Soliman, - Last Filed: 11/09/21 08:56> Critical Care Time Critical Care Time: Yes Total Critical Care Time: 45 Attestation: The high probability of a clinically significant, sudden or life threatening deterioration of the [45] system(s) required my full and direct attention, intervention and personal management. The aggregate critical care time was [] minutes. This time is in addition to time spent performing reported procedures but includes the following: [x] Data Review and interpretation [x] Patient assessment and monitoring of vital signs [x] Documentation [x] Medication orders and management Discharge Plan Departure Patient Disposition: Xfer [facility] Clinical Impression: Symptomatic anemia, DVT (deep venous thrombosis), GI bleed, Aortic stenosis Prescriptions: No Action metoprolol succinate 25 mg tablet extended release 24 hr 25 mg PO DAILY 0RF Ultra CoQ10 75 mg capsule 75 mg PO DAILY 0RF lorazepam 0.5 mg tablet 0.5 mg PO BID PRN0RF furosemide 20 mg tablet 20 mg PO DAILY 0RF Label Comments: TAKE 1 TABLET BY MOUTH ONCE DAILY IN THE MORNING omega [id number] oil [Fish Oil] 1,000 mg (120 mg-180 mg) Capsule 1 cap PO TID 0RF Hyaluronic Acid (chond-collgn) 40-80-400 mg Capsule 2 cap PO DAILY 0RF amlodipine 10 mg Tablet 10 mg PO DAILY 0RF losartan 100 mg Tablet 100 mg PO DAILY 0RF omeprazole 40 mg Capsule,Delayed Release(Dr/Ec) 40 mg PO DAILY 0RF Xarelto 20 mg Tablet 20 mg PO DAILY 0RF Rx Instructions: must administer with evening meal simvastatin 10 mg tablet 10 mg PO .COMPLEX 0RF Rx Instructions: 10 mg PO four times a week Referrals: Gin Everett PA-C [Primary Care Provider] -
[2021-11-08 10:24] LABS: Alanine Aminotransferase 16 IU/L (<35); Albumin 3.6 g/dL (3.5-5.0); Albumin Globulin Ratio 1.2 (1.0-2.8); Alkaline Phosphatase 51 U/L (38-126); Aspartate Aminotransferase 25 IU/L (14-36); BUN Creatinine Ratio 20.7 (6-22); Bilirubin Total 0.2 mg/dL (0.2-1.3); Blood Urea Nitrogen 30 mg/dL (7-17); Calcium 8.6 mg/dL (8.4-10.2); Carbon Dioxide 26 mmol/L (22-32); Chloride 108 mmol/L (98-107); Estimated Glomerular Filt Rate 36 mL/min (>60); Globulin 3.1 g/dL (1.7-4.1); Glucose 103 mg/dL (80-110); HEMOLYSIS < 15 (0-50); Lactate (Lactic Acid) 0.8 mmol/L (0.7-2.1); Potassium 4.6 mmol/L (3.4-5.1); Sodium 140 mmol/L (137-145); Total Protein 6.7 g/dL (6.3-8.2)
[2021-11-08 10:38] LABS: Troponin I 0.077 ng/mL (0.01-0.034)
[2021-11-08 10:46] LABS: COVID19 -Nasal RAPID Negative (Negative)
[2021-11-08 10:48] LABS: Creatine Kinase 43 U/L (30-135)
--- NOTE | 2021-11-08 10:57 | DI.US.S_ITS ---
PROCEDURE: US PERIPH VENOUS LOW EXTREM BI INDICATIONS: leg pain, prior dvts TECHNIQUE: Real-time imaging, as well as color and pulse Doppler interrogation, were performed of the deep veins of both legs from the inguinal ligament to the popliteal fossa. COMPARISON: None. FINDINGS: Right: The common femoral, femoral and popliteal veins are normally compressible, and free of intraluminal thrombus. Color and pulse Doppler demonstrate normal phasic intravascular flow. There is normal augmentation response to distal compression maneuver. There is probable chronic occlusive clot in the profundus, with recanalization. Left: The proximal portion of the superficial femoral vein (the deep vein of the thigh) has occlusive thrombus. The distal portion of the SFV has partially occlusive thrombus. Color and pulse Doppler demonstrate normal phasic intravascular flow. There is normal augmentation response to distal compression maneuver. IMPRESSION: 1. Findings are suggestive of acute DVT involving the left superficial femoral vein (the deep vein of the thigh) 2. 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 Dictated by: Hardy Renteria M.D. on 11/08/2021 at 11:15 Approved by: Hardy Renteria M.D. on 11/08/2021 at 11:20
[2021-11-08 11:08] LABS: NT-proBNP (BNP-Adult 18+) 559 pg/mL (<450)
[2021-11-08 11:23] LABS: Add Manual Diff / Slide Review NO; Basophils Absolute Auto 0 /uL (0-100); Basophils Percent Auto 0.8 % (0-2); Eosinophils Absolute Auto 0 /uL (0-450); Eosinophils Percent Auto 0.7 % (2-4); Lymphocytes Absolute Auto 1200 /uL (1100-4500); Mean Corpuscular HGB Conc 33.4 % (30-36); Mean Corpuscular Hemoglobin 29.6 PG (26-34); Mean Corpuscular Volume 88.7 fL (80-100); Monocytes Absolute Auto 400 /uL (0-900); Monocytes Percent Auto 7.7 % (3-14); Neutrophils Absolute Auto 3800 /uL (1500-7000); Neutrophils Percent Auto 69.8 % (50-75); Platelet Count 200 X10^3/uL (150-400); Red Blood Cell Count 1.86 X10^6/uL (4.0-5.2); Red Cell Distribution Width 13.9 % (11.6-14.8); White Blood Cell Count 5.5 X10^3/uL (4.5-11.0)
[2021-11-08 11:26] LABS: Hematocrit 16.5 % (36-46); Hemoglobin 5.5 g/dL (12.0-16.0)
--- NOTE | 2021-11-08 11:48 | PC.NURSE ---
Blood Consent signed by patient and witnessed by this RN, paperwork filed in chart.
--- NOTE | 2021-11-08 11:54 | DI.CT.S_ITS ---
PROCEDURE: CT ANGIO CHEST PE PROTOCOL INDICATIONS: sob, dvt, anemia TECHNIQUE: After the administration of intravenous contrast, 2 mm thick sections acquired from the pulmonary apices to the posterior costophrenic angles. 3-dimensional maximum intensity projection (MIP) coronal and sagittal reformats were then acquired through the thorax. For radiation dose reduction, the following was used: automated exposure control, adjustment of mA and/or kV according to patient size. COMPARISON: [facility], CT, CT ANGIO CHEST PE PROTOCOL, 05/28/2019, 16:43. [facility], CR, XR CHEST 2V, 11/08/2021, 9:19. [facility], US, US PERIPH VENOUS LOW EXTREM BI, 11/08/2021, 10:35. [facility], CT, CT ANGIO CHEST PE PROTOCOL, 02/27/2020, 19:45. FINDINGS: Image quality: Excellent. Pulmonary arteries: Pulmonary arteries are normal in size, and demonstrate no intraluminal filling defects to suggest central pulmonary embolism. Lungs and pleura: Trace pleural effusions are present bilaterally. Bibasilar atelectasis. Mild emphysema. Small lung nodules are present. Nodule 1: 3 mm; right upper lobe; series 5, image 79; solid; unchanged. Nodule 2: 3 mm; left lower lobe; series 5, image 201; solid; unchanged. No pneumothorax. Central and peripheral airways are patent. Mediastinum: Heart size is mildly increased. No pericardial effusion. There is mild coronary artery calcification. Mild mediastinal or hilar adenopathy. There is a 1.5 x 1.8 cm subcarinal lymph node, stable. A 1.1 cm right hilar lymph node is unchanged. Thoracic aorta is normal in caliber and enhancement. Esophagus is normal in caliber. Small hiatal hernia. Bones and chest wall: No suspicious bony lesions. Ribs and thoracic spine appear intact throughout. Kyphosis and moderate levoscoliosis. Degenerative changes in thoracic and upper lumbar spine. Thyroid gland is normal. No axillary or supraclavicular adenopathy. There is a 1.9 cm nodular density in the lateral aspect of the left breast, unchanged. Abdomen: Visualized upper abdominal solid organs appear normal in the early arterial phase of enhancement. IMPRESSION: 1. No evidence for pulmonary embolism. 2. Mild cardiomegaly. 3. Trace pleural effusions bilaterally. 4. Small lung nodules are present bilaterally, unchanged in size since the last exam. Please see enclosed follow-up recommendation. 5. Mild mediastinal and hilar lymphadenopathy, nonspecific. 6. A 1.9 cm nodular density in the lateral aspect of the left breast, unchanged. Please correlate with findings on mammography. Fleischner Society criteria for SOLID lung nodule followup. Nodule size (mm)Low-risk patientHigh-risk patient?4No follow-up neededFollow-up at 12 mo; if no change, no further follow-up>[id number]-nb CT at 12 mo; if no change, no further follow-up needed.Initial follow-up CT at 6-12 mo, then 18-24 mo if no change. >6-8Initial follow-up CT at 6-12 mo, then 18-24 mo if no change. Initial follow-up CT at 3-6 mo, then 9-12 mo and 24 mo if no change. >8Follow-up CT at 3, 9, 24 mo. Or PET and/or biopsy.Same as for low-risk pts. Dictated by: Ephraim Leach M.D. on 11/08/2021 at 12:15 Approved by: Ephraim Leach M.D. on 11/08/2021 at 12:37
[2021-11-08 13:39] LABS: Troponin I 0.061 ng/mL (0.01-0.034)
--- NOTE | 2021-11-08 16:09 | PC.NURSE ---
Pt on the waitlist at [facility], [facility], [address], [place] Evan, JEAN PAUL with low likely singleton of placement today/tonight. Put on CC's list
[2021-11-08 18:39] LABS: Hematocrit 25.1 % (36-46); Hemoglobin 8.5 g/dL (12.0-16.0)
[2021-11-08] MEDS: PANTOPRAZOLE 40 MG VIAL 80 MG IV (19:12)
--- NOTE | 2021-11-08 23:19 | PC.NURSE ---
Report called to Linus with [facility].
[2021-11-09] VITALS: BP 154/67; PULSE 86; RESP 19; O2SAT 92
[2021-11-09 00:38] VITALS: PULSE 85; O2SAT 92
[2021-11-09 01:00] VITALS: BP 168/69; PULSE 87; RESP 19; O2SAT 93
== END 2021-11-09 01:15 | disposition short-term general hospital (02) ==
PROVIDERS: Emergency Medicine; Emergency Provider Emergency Medicine; Family Provider Nurse Practitioner Gerontology; PCP Physician Assistant Medical
DX: I82.403 Acute embolism and thrombosis of unspecified deep veins of lower extremity, bilateral (principal); K92.2 Gastrointestinal hemorrhage, unspecified; I35.0 Nonrheumatic aortic (valve) stenosis; R06.02 Shortness of breath; D64.89 Other specified anemias; Z20.822 Contact with and (suspected) exposure to COVID-19
CPT/HCPCS: 36415; 36430; 71046; 71275; 80053; 82272; 82550; 83605; 83880; 84484; 85014; 85018; 85025; 86850; 86900; 86901; 87635; 93005; 93970; 96374; 99285; 99291; C9803; P9016; C9113; Q9967

== ENCOUNTER → 2022-01-17 20:04 | Outpatient (CLI) | payer MEDICARE, SELFPAY ==
[2020-08-10 14:13] VITALS: BMI 31.6
--- NOTE | 2022-01-17 | DI.MRI.S_ITS ---
PROCEDURE: MR LUMBAR SPINE WO CON INDICATIONS: collapsed vertebra lumbar TECHNIQUE: Noncontrast sagittal T1 spin echo and T2 fast echo, sagittal STIR, and T2 fast spin echo through the lumbar spine. In cases with scoliosis, additional coronal T2 fast spin echo may be performed. COMPARISON: None. FINDINGS: Image quality: Excellent. Alignment and Curvature: There is normal bony alignment. Bone Marrow: Marrow is of normal overall signal. Linear low T1/T2 signal intensity traverses the superior L1 and L3 endplates, with moderate surrounding ill-defined T2 signal elevation. There is mild wedging of L1 and L3. Mild reactive signal throughout the endplates of the thoracolumbar spine. Spinal Cord: Conus medullaris terminates at the lower L2 level. Visualized cord demonstrates normal signal and size. Paraspinous Soft Tissues: No paravertebral masses. T12-L1: Mild disc height loss and desiccation. Mild bilateral facet hypertrophy. No significant canal, or foraminal stenosis. L1-L2: Mild disc desiccation. Mild bilateral facet hypertrophy. No significant canal, or foraminal stenosis. L2-L3: Mild disc desiccation and diffuse disc bulge. Mild bilateral facet hypertrophy. Mild canal stenosis. Mild bilateral foraminal stenosis. L3-L4: Mild disc desiccation and diffuse disc bulge. Mild bilateral facet hypertrophy and ligamentum flavum hypertrophy. Mild epidural lipomatosis. Mild canal stenosis. Mild left greater than right foraminal stenosis. L4-L5: Mild disc desiccation and diffuse disc bulge. Mild bilateral facet hypertrophy. Mild canal stenosis. Mild bilateral foraminal stenosis. L5-S1: Moderate disc desiccation. Mild diffuse disc bulge. Mild bilateral facet hypertrophy. Mild canal stenosis. Mild bilateral foraminal stenosis. IMPRESSION: 1. Mild subacute compression fractures at L1 and L3. 2. Multilevel degenerative disc and facet disease, as well as ligamentum flavum hypertrophy and epidural lipomatosis. 3. Mild multilevel canal and foraminal stenoses. Dictated by: Jamie Covarrubias M.D. on 01/18/2022 at 9:28 Approved by: Jamie Covarrubias M.D. on 01/18/2022 at 9:35
== END ==
PROVIDERS: Family Provider Nurse Practitioner Gerontology; PCP Physician Assistant Medical; Referring Provider Physician Assistant Medical; Visit Provider Physician Assistant Medical
DX: M48.56XA Collapsed vertebra, not elsewhere classified, lumbar region, initial encounter for fracture (principal); M51.36 Other intervertebral disc degeneration, lumbar region; M51.37 Other intervertebral disc degeneration, lumbosacral region; M48.061 Spinal stenosis, lumbar region without neurogenic claudication; M48.07 Spinal stenosis, lumbosacral region
CPT/HCPCS: 72148

== ENCOUNTER → 2022-03-05 10:12 | Outpatient (CLI) | payer MEDICARE, SELFPAY ==
[2020-08-10 14:13] VITALS: BMI 31.6
== END ==
PROVIDERS: Family Provider Nurse Practitioner Gerontology; PCP Physician Assistant Medical; Referring Provider Physician Assistant Medical; Visit Provider Physician Assistant Medical
DX: Z78.0 Asymptomatic menopausal state (principal); M85.852 Other specified disorders of bone density and structure, left thigh; M85.851 Other specified disorders of bone density and structure, right thigh
CPT/HCPCS: 77080

== ENCOUNTER → 2022-07-04 10:48 | Outpatient (CLI) | payer MEDICARE, SELFPAY ==
[2020-08-10 14:13] VITALS: BMI 31.6
--- NOTE | 2022-07-04 | DI.MRI.S_ITS ---
PROCEDURE: MR ORBITS FACE NECK WO/W CON INDICATIONS: optic neuritis/cerebral aneurysm, nonruptured TECHNIQUE: Noncontrast sagittal T1 spin echo, axial FLAIR, axial gradient echo, axial diffusion and ADC acquired through the brain. Coronal STIR, thin-slice axial T1 spin echo through the orbits. After the administration of contrast, thin-slice axial and coronal T1 spin echo with fat saturation through the orbits, axial and coronal and sagittal T1 spin echo with fat saturation through the brain. COMPARISON: MR, MR ANGIO HEAD WO CON, 08/02/2021, 15:57. CT, CT ANGIO HEAD, 06/23/2020, 11:21. MR, MR STROKE, 06/14/2020, 13:42. FINDINGS: Image quality: Excellent. Orbits: Globes are symmetrical. The optic nerves are normal in size, without abnormal signal or enhancement. No retrobulbar masses or fat abnormalities. The extra-ocular muscles are normal and symmetric in appearance. Lacrimal glands are normal. Optic chiasm is normal. Periorbital soft tissues appear normal. CSF spaces: Ventricles are normal in size and shape. Basal cisterns are patent. No extra-axial fluid collections. Brain: No intracranial bleeds or mass effects. No abnormal intracranial enhancement. Brasher-white matter interface is intact. Diffusion weighted images demonstrate no acute ischemic insults. Pituitary gland appears normal, without sellar or suprasellar masses. Brainstem appears normal. As identified on prior exam, there is an approximate 10 mm distal left cavernous ICA aneurysm. It is not as well characterized on current exam but appears relatively stable. Skull and face: Right maxillary sinus mucous retention cyst versus polyp is present. Sinuses: Sinuses and mastoids are clear. 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 Globes and optic nerves are unremarkable. Dictated by: Annabella Khan M.D. on 07/04/2022 at 16:05 Approved by: Annabella Khan M.D. on 07/04/2022 at 16:11
== END ==
PROVIDERS: Family Provider Nurse Practitioner Gerontology; PCP Physician Assistant Medical; Referring Provider Internal Medicine; Visit Provider Internal Medicine
DX: I67.1 Cerebral aneurysm, nonruptured (principal); H46.9 Unspecified optic neuritis
CPT/HCPCS: 70543

== ENCOUNTER → 2023-03-20 12:51 | Outpatient (CLI) | payer MEDICARE, SELFPAY ==
[2020-08-10 14:13] VITALS: BMI 31.6
--- NOTE | 2023-03-20 | DI.ECHO.S_ITS ---
[place] +---------+ Hospital +---------+ : : [address] : : : : [id number] : : : : Phone: [phone]---------+ Echocardiogram Report + + :Name: CONCETTA JIMÉNEZ Study Date: 03/20/2023 Height: 66 in : :[facility] ReadingLocation: Weight: 180 lb : : Gender: Female BSA: 1.9 m2 : :: 1940 Age: 82 yrs BP: 189/65 mmHg: :Reason For Study: Aortic Valve Stenosis : :Ordering Physician: TEODORO, : :DICK Performed By: Dawna Clemons : :Referring: DICK GALLAGHER : + + Interpretation Summary 1) Normal left ventricular size, wall motion, and systolic function (EF 60- 65%). 2) The right ventricle is normal in size and function. 3) There is moderate to severe aortic stenosis (valve area 1.1cm2, mean gradient 58mmHg, severity ratio 0.33). 4) There is moderate aortic regurgitation. 5) Hypertension present during the study (BP 189/65mm Hg). 6) Compared to the Echo done 10/11/2021, aortic stenosis has progressed from moderate to moderate-severe on this study. Procedure: A two-dimensional transthoracic echocardiogram with color flow and Doppler was performed. The study quality was technically adequate. Comparison is made with the echocardiogram of 10/11/2021. The patient was in normal sinus rhythm during the exam. Left Ventricle: The left ventricle is normal in size. Left ventricular wall thickness is at the upper limits of normal. The ejection fraction is estimated to be 60-65%. Left ventricular systolic function appears normal without focal wall motion abnormalities. Diastolic parameters suggest a relaxation abnormality of the left ventricle, consistent with probable normal filling pressures. Right Ventricle: The right ventricle is normal in size and function. Atria: The left atrium is severely dilated. Right atrial size is normal. There is no Doppler evidence for an interatrial shunt. Mitral Valve: The mitral valve leaflets appear mildly thickened, but open well. There is mild to moderate mitral annular calcification. There is no mitral valve stenosis. There is mild mitral regurgitation. Aortic Valve: The aortic valve is moderately calcified. There is moderate to severe aortic stenosis. The peak aortic velocity is 4.93 m/sec. The aortic valve mean gradient is 58 mmHg. There is moderate aortic regurgitation. Tricuspid Valve: The tricuspid valve is normal. There is no tricuspid stenosis. There is mild tricuspid regurgitation. The right ventricular systolic pressure is estimated to be at least 30 mmHg based on an estimated right atrial pressure of 3 mm Hg. Pulmonic Valve: The pulmonic valve leaflets are thin and pliable; valve motion is normal. There is no pulmonic valvular stenosis. There is trace pulmonic regurgitation. Great Vessels: The aortic root is normal size. The ascending aorta is normal in size. The pulmonary artery is normal size. The IVC is of normal diameter and collapses greater than 50% with a sniff. This suggests a low right atrial pressure of 3 mm Hg. Pericardium/ Pleura There is a trivial pericardial effusion noted. There is a moderate left-sided pleural effusion. MMode/2D Measurements & Calculations LVIDd: 4.7 cm LVOT diam: 2.0 cm LVIDs: 2.9 cm Ao root diam: 2.7 cm FS: 38.3 % asc Aorta Diam: 3.2 cm EPSS: 1.9 cm IVSd: 1.1 cm LVPWd: 1.1 cm LV medina. diameter/BSA (cm/m^2): 2.5 LV sys. diameter/BSA (cm/m^2): 1.5 LA A2 area: 25.6 cm2 RA long axis: 5.4 cm LA A4 area: 21.2 cm2 RA area: 14.0 cm2 LA length (vol): 6.0 cm RA vol: 30.9 ml LA vol: 76.4 ml RA : 16.2 ml/m2 LA vol index: 39.9 ml/m2 RVD1 (basal): 3.1 cm LVLs ap4: 6.4 cm LVLd ap2: 7.5 cm TAPSE_phl: 2.5 cm LVLs ap2: 6.4 cm Doppler Measurements & Calculations Ao V2 max: 473.0 cm/sec LVOT Max Valente: 151.7 cm/sec Ao V2 mean: 348.6 cm/sec LV V1 max P.2 mmHg Ao max P.0 mmHg LV V1 VTI: 34.7 cm Ao mean P.2 mmHg MINH(I,D): 1.1 cm2 Ao V2 VTI: 105.2 cm MINH(V,D): 1.0 cm2 sev ratio: 0.33 MINH indexed to BSA (cm^2/m^2): 0.55 MV E max valente: 143.0 cm/sec TR max valente: 267.0 cm/sec MV A max valente: 133.0 cm/sec TR max P.6 mmHg MV E/A: 1.1 PA V2 max: 122.0 cm/sec Med Peak E' Valente: 8.7 cm/sec PA V2 mean: 86.9 cm/sec E/E' med: 16.5 PA mean P.0 mmHg Lat Peak E' Valente: 7.1 cm/sec PA pr(Accel): 24.6 mmHg E/E' lat: 20.1 E/e' average: 18.3 MV dec time: 0.19 sec SV(LVOT): 111.4 ml AV VR_phl: 0.32 MINH(VTI)/BSA_phl: 0.49 Reading Physician:12:39 PM
== END ==
PROVIDERS: Family Provider Nurse Practitioner Gerontology; PCP Physician Assistant Medical; Referring Provider Internal Medicine Cardiovascular Disease; Visit Provider Internal Medicine Cardiovascular Disease
DX: I35.0 Nonrheumatic aortic (valve) stenosis (principal); I35.1 Nonrheumatic aortic (valve) insufficiency; I10 Essential (primary) hypertension
CPT/HCPCS: 93306

== ENCOUNTER → 2024-04-29 10:38 | Outpatient (CLI) | payer MEDICARE, SELFPAY ==
[2020-08-10 14:13] VITALS: BMI 31.6
--- NOTE | 2024-04-29 10:40 | DI.ECHO.S_ITS ---
[place] +---------+ Hospital : : [address] : : [id number] : : Phone: [phone] Echocardiogram Report + + :Name: CONCETTA JIMÉNEZ Study Date: 04/29/2024 Height: 66 in : :[facility] ReadingLocation: Weight: 180 lb : : Gender: Female BSA: 1.9 m2 : :: 1940 Age: 83 yrs BP: 166/63 mmHg: :Reason For Study: NONRHEUMATIC AORTIC VALVE STENOSIS : :Ordering Physician: TEODORO, : :DICK Performed By: Chad Cervantes : :Referring: DICK GALLAGHER : + + Interpretation Summary 1) Normal left ventricular size, wall motion, and systolic function (EF 65- 70%). 2) The right ventricle is normal in size and function. 3) There is moderate to severe aortic stenosis (valve area 1.0cm2, mean gradient 69mmHg, severity ratio 0.31). Stroke volume 138cc, suggesting high output state. 4) There is moderate aortic regurgitation. 5) Hypertension present during the study (BP 166/63mm Hg). 6) Compared to the Echo done 03/20/2023, no significant change. Procedure: A two-dimensional transthoracic echocardiogram with color flow and Doppler was performed. The study quality was technically good. Comparison is made with the echocardiogram of 03/20/2023. The patient was in normal sinus rhythm during the exam. Left Ventricle: The left ventricle is normal in size. There is normal left ventricular wall thickness. There is no ventricular septal defect visualized. The ejection fraction is estimated to be 65-70%. There are no focal wall motion abnormalities. Right Ventricle: The right ventricle is normal in size and function. Atria: The left atrium is severely dilated. Right atrial size is normal. There is no Doppler evidence for an atrial septal defect. Mitral Valve: The mitral valve leaflets appear mildly thickened, but open well. There is mild to moderate mitral annular calcification. There is mild mitral regurgitation. Aortic Valve: The aortic valve is trileaflet. The aortic valve is moderately calcified. There is moderate to severely reduced leaflet mobility. There is moderate to severe aortic stenosis. The peak aortic velocity is 5.27 m/sec. The aortic valve mean gradient is 69 mmHg. The calculated aortic valve area is 1.0 cm2. There is moderate aortic regurgitation. Tricuspid Valve: The tricuspid valve is normal in structure and function. There is mild tricuspid regurgitation. The right ventricular systolic pressure is estimated to be at least 39 mmHg based on an estimated right atrial pressure of 3 mm Hg. Pulmonic Valve: The pulmonic valve is not well seen, but is grossly normal. There is no pulmonic valvular regurgitation. Great Vessels: The aortic root is normal size. The dimensions of the ascending aorta are normal. The pulmonary artery is normal size. The IVC is of normal diameter and collapses greater than 50% with a sniff. This suggests a low right atrial pressure of 3 mm Hg. Pericardium/ Pleura There is no pericardial effusion. There is no pleural effusion. MMode/2D Measurements & Calculations LVIDd: 5.3 cm LVOT diam: 2.0 cm LVIDs: 3.1 cm Ao root diam: 3.2 cm FS: 41.2 % asc Aorta Diam: 3.4 cm EPSS: 0.52 cm IVSd: 0.88 cm LVPWd: 0.76 cm LV medina. diameter/BSA (cm/m^2): 2.8 LV sys. diameter/BSA (cm/m^2): 1.6 LA A2 area: 26.8 cm2 RA long axis: 4.8 cm LA A4 area: 27.2 cm2 RA area: 15.6 cm2 LA length (vol): 5.7 cm RA vol: 43.2 ml LA vol: 108.0 ml RA : 22.6 ml/m2 LA vol index: 56.5 ml/m2 IVC diam: 1.8 cm RVD1 (basal): 3.8 cm RVD2 (mid): 3.5 cm TAPSE: 2.5 cm Doppler Measurements & Calculations Ao V2 max: 526.6 cm/sec LVOT Max Valente: 165.1 cm/sec Ao V2 mean: 402.8 cm/sec LV V1 max P.9 mmHg Ao max P.9 mmHg LV V1 VTI: 42.0 cm Ao mean P.5 mmHg MINH(I,D): 1.0 cm2 Ao V2 VTI: 133.4 cm MINH(V,D): 1.0 cm2 sev ratio: 0.31 MINH indexed to BSA (cm^2/m^2): 0.54 AI P1/2t: 264.6 msec AI dec slope: 560.4 cm/sec2 MV E max valente: 104.6 cm/sec TR max valente: 300.7 cm/sec MV A max valente: 110.3 cm/sec TR max P.2 mmHg MV E/A: 0.95 PA V2 max: 118.2 cm/sec Med Peak E' Valente: 5.6 cm/sec PA V2 mean: 78.3 cm/sec E/E' med: 18.8 PA mean P.7 mmHg Lat Peak E' Valente: 4.3 cm/sec PA pr(Accel): 49.9 mmHg E/E' lat: 24.1 E/e' average: 21.4 MV dec time: 0.24 sec SV(LVOT): 137.9 ml Reading Physician:03:23 PM
== END ==
PROVIDERS: Family Provider Nurse Practitioner Gerontology; PCP Physician Assistant Medical; Referring Provider Internal Medicine Cardiovascular Disease; Visit Provider Internal Medicine Cardiovascular Disease
DX: I08.3 Combined rheumatic disorders of mitral, aortic and tricuspid valves (principal)
CPT/HCPCS: 93306

== ENCOUNTER → 2024-05-26 08:24 | Outpatient (CLI) | payer MEDICARE, SELFPAY ==
[2020-08-10 14:13] VITALS: BMI 31.6
--- NOTE | 2024-05-26 08:26 | DI.US.S_ITS ---
PROCEDURE: US CAROTID DOPPLER BI INDICATIONS: Dizziness and giddiness TECHNIQUE: Color and pulse Doppler interrogation was performed of both carotid systems, with image documentation and velocity measurements. COMPARISON: None. FINDINGS: Stenosis calculations are based on SRU (Society of Radiologists in Ultrasound) criteria. Right side: Common carotid artery peak systolic velocity: 101.9 cm/sec. Internal carotid artery peak systolic velocity: 93.9 cm/sec. Internal carotid artery end diastolic velocity: 14.6 cm/sec. ICA/CCA peak systolic ratio: 0.92. Brasher scale imaging description: Moderate scattered atheromatous disease. Percent internal carotid artery stenosis: Normal . Vertebral artery: Flow direction is antegrade. Left side: Common carotid artery peak systolic velocity: 109.2 cm/sec. External carotid artery peak systolic velocity: 89.9 cm/sec. Brasher scale imaging description: Moderate scattered atheromatous plaque. Percent internal carotid artery stenosis: Indeterminate . Vertebral artery: Flow direction is antegrade. IMPRESSION: 1. Measurements were not obtained of the left internal carotid artery making stenosis estimates indeterminate. 2. In the right carotid artery, there is no significant stenosis based on peak systolic velocity criteria. 3. Antegrade patent vertebral arteries. Dictated by: Linwood Stephens M.D. on 05/26/2024 at 11:21 Approved by: Linwood Stephens M.D. on 05/26/2024 at 11:29
== END ==
PROVIDERS: Family Provider Nurse Practitioner Gerontology; PCP Physician Assistant Medical; Referring Provider Internal Medicine Cardiovascular Disease; Visit Provider Internal Medicine Cardiovascular Disease
DX: R42 Dizziness and giddiness (principal)
CPT/HCPCS: 93880